=== PATIENT | female | born 1940 | race Caucasian/White ===

== ENCOUNTER 2017-11-01 11:21 | Emergency (ER) | payer MEDICARE, OTHER ==
[~2017-11-01] VITALS: Ht 147.3 cm; Wt 42.6 kg
--- OUTSIDE RECORDS SUMMARY | ~2017-11-01 | XMS | Clinical Summary ---
Demographics + + + | Address | [address] | | | [place] [address] | + + + | Home Phone | | + + + | Preferred Language | Unknown | + + + | Marital Status | | + + + | Judaism Affiliation | Unknown | + + + | Race | Unknown | + + + | Ethnic Group | Unknown | + + + Author + + + | Author | [facility] [employer] | + + + | Organization | [facility] [employer] | + + + | Address | Unknown | + + + | Phone | Unavailable | + + + Support + + + + + | Name | Relationship | Address | Phone | + + + + + | Meg Abreu | ECON | [address] | | | | | [place], | | | | | [place] [address] | | + + + + + Care Team Providers + +------+ + | Care Coating Line Worker Name | Role | Phone | + +------+ + | Da Hurst MD | PP | | + +------+ + Allergies No Known Allergies Current Medications + + +--------+---------+------+------+-------+ | Prescription | Sig. | Disp. | Refills | Star | End | Statu | | | | | | t | Date | s | | | | | | Date | | | + + +--------+---------+------+------+-------+ | rosuvastatin | Take 20 mg by mouth | | | | | Activ | | (CRESTOR) 20 MG | daily. | | | | | e | | tablet | | | | | | | + + +--------+---------+------+------+-------+ | diltiazem | Take 240 mg by mouth | | | | | Activ | | (CARDIZEM) 120 MG | daily. | | | | | e | | tablet | | | | | | | + + +--------+---------+------+------+-------+ | Cholecalciferol | Take 1,000 Units by | | | | | Activ | | (VITAMIN D3) 1000 | mouth daily. | | | | | e | | UNITS capsule | | | | | | | + + +--------+---------+------+------+-------+ | metoprolol | Take 25 mg by mouth | | | | | Activ | | (LOPRESSOR) 25 MG | daily. | | | | | e | | tablet | | | | | | | + + +--------+---------+------+------+-------+ | rivaroxaban | Take 15 mg by mouth | | | | | Activ | | (XARELTO) 15 MG | daily. | | | | | e | | tablet | | | | | | | + + +--------+---------+------+------+-------+ | levothyroxine | Take 125 mcg by | | | 05/ | | Activ | | (SYNTHROID) 150 MCG | mouth daily. | | | 0/20 | | e | | tablet | | | | 13 | | | + + +--------+---------+------+------+-------+ | lisinopril | Take 1 tablet by | 90 | 3 | 04/2 | | Activ | | (ZESTRIL) 5 MG | mouth daily. | tablet | | 10/23 | | e | | tabletIndications: | | | | 17 | | | | Essential | | | | | | | | hypertension | | | | | | | + + +--------+---------+------+------+-------+ Active Problems + + + | Problem | Noted Date | + + + | Proteinuria | 10/20/2011 | + + + | Iron deficiency | 10/20/2011 | + + + | Vitamin D deficiency | 10/20/2011 | + + + | Hypercalcemia | 10/20/2011 | + + + + + | Overview: Now markedly improved. | + + + + + | Acute kidney injury (HCC) | 04/11/2011 | + + + | Anemia | 04/11/2011 | + + + | CKD (chronic kidney disease), stage III | 04/11/2011 | + + + Family History + + +------+ + | Medical History | Relation | Name | Comments | + + +------+ + | Arthritis | Brother | | | + + +------+ + | Hypertension | Mother | | | + + +------+ + + +------+ + + | Relation | Name | Status | Comments | + +------+ + + | Brother | | Other | | + +------+ + + | Father | | Other | | + +------+ + + | Maternal Uncle | | Other | | + +------+ + + | Mother | | | hypertension | + +------+ + + | Paternal Aunt | | Other | | + +------+ + + | Sister | | Other | | + +------+ + + | Son | | | | + +------+ + + Social History + +-------+ +--------+------+ | Tobacco Use | Types | Packs/Day | Years | Date | | | | | Used | | + +-------+ +--------+------+ | Never Smoker | | | | | + +-------+ +--------+------+ + +---+---+---+ | Smokeless Tobacco: | | | | | Never Used | | | | + +---+---+---+ + + +---------+ + | Alcohol Use | Drinks/We | oz/Week | Comments | | | ek | | | + + +---------+ + | No | 1-2 | 0.0 | Wine | | | Glasses | | | | | of wine | | | + + +---------+ + + + + | Sex Assigned at | Date Recorded | | | | + + + | Not on file | | + + + Last Filed Vital Signs + + + + | Vital Sign | Reading | Time Taken | + + + + | Blood Pressure | 116/66 | 10/27/2016 10:07 AM PDT | + + + + | Pulse | 82 | 10/27/2016 10:07 AM PDT | + + + + | Temperature | 35.8 C (96.4 F) | 10/27/2016 10:07 AM PDT | + + + + | Respiratory Rate | 14 | 10/28/2013 10:57 AM PDT | + + + + | Oxygen Saturation | 98% | 10/27/2016 10:07 AM PDT | + + + + | Inhaled Oxygen | - | - | | Concentration | | | + + + + | Weight | 49 kg (108 lb 1.6 | 10/27/2016 10:07 AM PDT | | | oz) | | + + + + | Height | 149.9 cm (4' 11") | 10/27/2016 10:07 AM PDT | + + + + | Body Mass Index | 21.83 | 10/27/2016 10:07 AM PDT | + + + + Plan of Treatment +--------+---------+ + + + | Date | Type | Specialty | Care Team | Description | +--------+---------+ + + + | 11/11/ | Office | | Lemuel Peñaloza, | | | 2018 | Visit | | [address] | | | | | | [address] | | | | | | [place] [address] | | | | | | [phone] | | | | | | | | +--------+---------+ + + + + + + + + | Health Maintenance | Due Date | Last Done | Comments | + + + + + | Vaccine: | | | | | Dtap/Tdap/Td (1 - | 9 | | | | Tdap) | | | | + + + + + | DEXA SCAN SCREENING | | | | | | 5 | | | + + + + + | Vaccine: | | | | | Pneumococcal 65+ | 5 | | | | Low/Medium Risk (1 | | | | | of 2 - PCV13) | | | | + + + + + | Vaccine: Influenza | | | | | (Season Ended) | 8 | | | + + + + + Results Not on filefrom Last 3 Months Insurance + +--------+ +------+-------+ + | Payer | Benefi | Subscriber | Type | Phone | Address | | | t Plan | ID | | | | | | / | | | | | | | Group | | | | | + +--------+ +------+-------+ + | MEDICARE | MEDICA | xxxxxxxxxx | | | [address] | | | RE | | | | [place] [address] | | | IP-OP | | | | | + +--------+ +------+-------+ + | [employer] PLAN | ODS - | xxxxxxxxx | | | | | | GENERI | | | | | | | C | | | | | + +--------+ +------+-------+ + + +--------+ +--------+ + + | Guarantor Name | Accoun | Relation to | Date | Phone | Billing Address | | | t Type | Patient | of | | | | | | | | | | + +--------+ +--------+ + + | JOSE CARLOS ABREU | Person | Self [birth year] Home: | [address] | | | al/Fam | | 1940 | [phone] [place] | | | [place] | | | [phone] | [phone] | + +--------+ +--------+ + +
--- OUTSIDE RECORDS SUMMARY | ~2017-11-01 | XMS | Clinical Summary ---
Demographics + + + | Address | [address] | | | [place] [address] | + + + | Home Phone | | + + + | Preferred Language | Unknown | + + + | Marital Status | | + + + | Jehovah'S Witness Affiliation | NON | + + + | Race | White | + + + | Ethnic Group | Not or | + + + Author + + + | Author | [facility] | + + + | Organization | [facility] | + + + | Address | Unknown | + + + | Phone | Unavailable | + + + Support + + + + + | Name | Relationship | Address | Phone | + + + + + | SHANTELLE ABREU | ECON | [address] | | | | | [place] | | | | | [address] | | + + + + + Care Team Providers + +------+ + | Care Family Preservation Caseworker Name | Role | Phone | + +------+ + | Da Hurst MD | PP | Unavailable | + +------+ + Source Comments HIEU is fully live on both [facility] and [facility] InPatient.Counts Include [facility] & [facility] Allergies No Known Allergies Current Medications + + +-------+---------+------+------+-------+ | Prescription | Sig. | Disp. | Refills | Star | End | Statu | | | | | | t | Date | s | | | | | | Date | | | + + +-------+---------+------+------+-------+ | Propranolol HCl 40 | None Entered | | | | | Activ | | mg Oral TABS | | | | | | e | + + +-------+---------+------+------+-------+ | Atorvastatin | None Entered | | | | | Activ | | Calcium (LIPITOR) 20 | | | | | | e | | mg Oral TABS | | | | | | | + + +-------+---------+------+------+-------+ | | None Entered | | | | | Activ | | [id number] | | | | | | e | | LICYL-CAFF OR | | | | | | | + + +-------+---------+------+------+-------+ | | None Entered | | | | | Activ | | Triamterene-Hydrochl | | | | | | e | | orothiazid (MAXZIDE) | | | | | | | | 75-50 mg Oral TABS | | | | | | | + + +-------+---------+------+------+-------+ Active Problems Not on file Social History + + + +--------+------+ | Tobacco Use | Types | Packs/Day | Years | Date | | | | | Used | | + + + +--------+------+ | Current Every Day | Cigarettes | 0.5 | 50 | | | Smoker | | | | | + + + +--------+------+ + + +---------+ + | Alcohol Use | Drinks/We | oz/Week | Comments | | | ek | | | + + +---------+ + | Yes | | | 1 a month | + + +---------+ + + + + | Sex Assigned at | Date Recorded | | | | + + + | Not on file | | + + + Last Filed Vital Signs + + + + | Vital Sign | Reading | Time Taken | + + + + | Blood Pressure | - | - | + + + + | Pulse | - | - | + + + + | Temperature | - | - | + + + + | Respiratory Rate | - | - | + + + + | Oxygen Saturation | - | - | + + + + | Inhaled Oxygen | - | - | | Concentration | | | + + + + | Weight | 55.8 kg (123 lb) | 12/22/2006 3:00 PM PDT | + + + + | Height | 149.9 cm (4' 11") | 12/22/2006 3:00 PM PDT | + + + + | Body Mass Index | 24.84 | 12/22/2006 3:00 PM PDT | + + + + Plan of Treatment + + + + + | Health Maintenance | Due Date | Last Done | Comments | + + + + + | INFLUENZA VACCINE | | | | | (FLU SHOT) | 8 | | | + + + + + Results Not on filefrom Last 3 Months
--- OUTSIDE RECORDS SUMMARY | ~2017-11-01 | XMS | Clinical Summary ---
Demographics + + + | Address | [address] | | | [place] [address] | + + + | Home Phone | | + + + | Preferred Language | Unknown | + + + | Marital Status | | + + + | Hindu Affiliation | 1077 | + + + | Race | Unknown | + + + | Ethnic Group | Unknown | + + + Author + + + | Author | [facility] | | | and [facility] | + + + | Organization | [facility] | | | and [facility] | + + + | Address | Unknown | + + + | Phone | Unavailable | + + + Support + + + + + | Name | Relationship | Address | Phone | + + + + + | None,To List | ECON | 11/05/11 | | | | | NA, | | + + + + + | Meg Chavez | ECON | [address] | | | | | [place] | | | | | [address] | | + + + + + Care Team Providers + +------+ + | Care Process Development Chemist Name | Role | Phone | + +------+ + PP | Unavailable | + +------+ + Allergies Not on File Current Medications Not on file Active Problems Not on file Social History + +-------+ +--------+------+ | Tobacco Use | Types | Packs/Day | Years | Date | | | | | Used | | + +-------+ +--------+------+ | Never Assessed | | | | | + +-------+ +--------+------+ + + + | Sex Assigned at | Date Recorded | | | | + + + | Not on file | | + + + Plan of Treatment + [...] + Results Not on filefrom Last 3 Months"
--- OUTSIDE RECORDS SUMMARY | ~2017-11-01 | XMS | Clinical Summary ---
Demographics + + + | Address | [address] | | | [place] [address] | + + + | Home Phone | | + + + | Preferred Language | Unknown | + + + | Marital Status | | + + + | Mormon Affiliation | Unknown | + + + | Race | Unknown | + + + | Ethnic Group | Unknown | + + + Author + + + | Author | [facility] | + + + | Organization | [facility] | + + + | Address | Unknown | + + + | Phone | Unavailable | + + + Support + + + + + | Name | Relationship | Address | Phone | + + + + + | Meg Abreu | ECON | [address] | | | | | [place], | | | | | [place] [address] | | + + + + + Care Team Providers + +------+ + | Care Gold Cutter Name | Role | Phone | + [...] [address] | | | | | | [place] [address] | | | | | | [phone] | | | | | | | [...] | xxxxxxxxxx | | | [address] | | | RE | | | | [place] [address] | | | IP-OP | | | [...] | [place] | | | [address] | [phone] | + +--------+ +--------+ + +
--- OUTSIDE RECORDS SUMMARY | ~2017-11-01 | XMS | Clinical Summary ---
Demographics + + + | Address | [address] | | | [place] [address] | + + + | Home Phone | | + + + | Preferred Language | Unknown | + + + | Marital Status | | + + + | Druze Affiliation | NON | + + + [...] [place] | | | | | [address] | | + + + + + Care Team Providers + +------+ + | Care Finishing Trimmer Name | Role | Phone | + +------+ + | Da Hurst MD | PP | Unavailable | + +------+ + Source Comments HIEU is fully live on both [facility] and [facility] InPatient.[facility] Allergies No Known Allergies Current [...] | | | | Activ | | [id number] | | | | | | e [...]
--- OUTSIDE RECORDS SUMMARY | ~2017-11-01 | XMS | Clinical Summary ---
Demographics + + + | Address | [address] | | | [place] [address] | + + + | Home Phone | | + + + | Preferred Language | Unknown | + + + | Marital Status | | + + + | Quaker Affiliation | 1077 | + + + | Race | Unknown | + + + | Ethnic Group | Unknown | + + + Author + + + | Author | [facility] | | | and [facility] | + + + | Organization | [facility] | | | and Juan Joseana [...] [place] | | | | | [address] | | + + + + + Care Team Providers + +------+ + | Care Cardiac Rn Name | Role | Phone | + [...]
[~2017-11-01 11:21] MED LIST: ADULT LOW DOSE81 MG PO; CRESTOR20 MG PO; DILTIAZEM 24HR120 M1 PO; DULCOLAX5 MG PO; IRON325 M1 PO; LISINOPRIL5 MG PO; METOPROLOL SUCC25 MG PO; PERCOCET 7.5-31 EACH PO; PROPRANOLOL HCL20 MG PO; SYNTHROID50 MCG PO; VITAMIN D1000 UNI1 PO; XARELTO15 MG PO
[2017-11-01] MEDS ORDERED: NORCO 5-325 TA1 EACH PO (16:01)
--- NOTE | 2017-11-01 22:00 | EKG ---
[facility] [address] [place], [place] [address] Signed Atrial fibrillation with rapid ventricular response Nonspecific T wave abnormality Abnormal ECG No previous ECGs available Confirmed by LEONOR PORTILLO MD ([id number]) on 11/01/2017 10:00:10 PM Electronically Signed By: LEONOR PORTILLO MD 11/01/172199 PATIENT NAME: JOSE CARLOS ABREU Electrocardiogram DATE OF : 40 PHYSICIAN: LEONOR PORTILLO MD REPORT #: [id number] REPORT IS CONFIDENTIAL AND NOT TO BE RELEASED WITHOUT AUTHORIZATION
== END 2017-11-01 16:45 | disposition home or self-care (01) ==
LOC: ED 11:21
DX: M25.551 Pain in right hip (principal); I48.91 Unspecified atrial fibrillation; I48.92 Unspecified atrial flutter; I10 Essential (primary) hypertension; Z87.891 Personal history of nicotine dependence; Z79.899 Other long term (current) drug therapy
CPT/HCPCS: 73502; 76882; 80053; 85025; 85651; 93005; 93010; 96374; 99284

== ENCOUNTER 2017-12-22 11:34 | Inpatient (IN) | payer MEDICARE, OTHER ==
[~2017-12-22] VITALS: Ht 147.3 cm; Wt 45.9 kg
[~2017-12-22 11:34] MED LIST changes: +NORCO 5-325 TA1 EACH PO
--- NOTE | 2017-12-22 16:05 | NUR ---
77 YEAR OLD FEMALE PATIENT ADMITTED TO CCU VIA STRETCHER UNDER DR. PORTILLO WITH DX OF AFIB/RVR. PATIENT IS AWAKE AND ALERT UPON ADMISSION. STATES SHE HX OF AFIB FOR APPROX 5 YEARS. BEGAN HAVEING VOMITING THE PAST 2 DAYS, TODAY DEVELOPED DIARRHEA THIS MORNING. IS ON AMIODARONE GTT AT 1 MG/HR, EQUALS 33.3 ML/HR. DENEIS S/S OF AFIB/RVR.
--- NOTE | 2017-12-22 16:10 | NUR ---
ADMISSION PROCESS STARTED. IS ABLE TO ANSWERE QUESTIONS. C/O SLIGHT NAUSEA.
[2017-12-22] MEDS ORDERED: NORCO 5-325 TA1 EACH PO (17:58)
--- NOTE | 2017-12-22 18:15 | NUR ---
NAUSEATED. HAVING DRY HEAVES. ZOFRAN 4 MG IV GIVEN.
--- NOTE | 2017-12-22 20:00 | NUR ---
REPORT RC'D FROM DAY SHIFT NURSE. PT RESTING COMFORTABLY IN BED, DENIES NAUSEA, DENIES PAIN, NO OTHER COMPLAINTS AT THIS TIME. PT DISORIENTED TO DATE, REORIENTED. AMIODARONE GTT CURRENTLY RUNNING AT 0.5 MG/MIN AND D5LR RUNNING 75 ML/HR, LEFT IV SITE WNL AND PATENT, EDUCATION PROVIDED ON S/SX TO MONITOR FOR AND REPORT, PT VERBALIZED UNDERSTANDING AND AGREEBALE. ASSESSMENT CHARTED AND VITAL SIGNS OBTAINED. CALL LIGHT WITHIN REACH. WILL CONTINUE MONITOR.
--- NOTE | 2017-12-22 21:00 | EKG ---
[facility] [address] [facility] [facility] [place] [address] Signed Atrial fibrillation with rapid ventricular response Nonspecific T wave abnormality Abnormal ECG When compared with ECG of 01-NOV-2017 12:56, No significant change was found Confirmed by LEONOR PORTILLO MD ([id number]) on 12/22/2017 9:00:22 PM Electronically Signed By: LEONOR PORTILLO MD 12/22/17 2100 PATIENT NAME: JOSE CARLOS ABREU Electrocardiogram DATE OF : 40 PHYSICIAN: LEONOR PORTILLO MD REPORT #: [id number] REPORT IS CONFIDENTIAL AND NOT TO BE RELEASED WITHOUT AUTHORIZATION
--- NOTE | 2017-12-22 23:23 | NUR ---
PT RESTING COMFORTABLY IN BED WITH EYES CLOSED, NO ACUTE DISTRESS NOTED. LR RUNNING AT 500 ML/HR AND AMIODARONE RUNNING AT 0.5 MG/MIN. PT'S URINE OUTPUT NOTED TO BE DECREASED SINCE ARRIVAL, DR. PORTILLO AWARE. WILL CONTINUE TO MONITOR.
--- NOTE | 2017-12-23 00:30 | NUR ---
P/C UPDATE TO DR. PORTILLO REGARDING PT'S STATUS. INFORMED PROVIDER THAT PT'S HR HAS REMAIN ELEVATED ABOVE 110, AND URINE OUTPUT HAS BEEN DECREASED WITH SINGLE OUTPUT OF 100 MLS IN THAT LAST FOUR HOURS. PER DR. PORTILLO, INCREASE D5LR TO 125 ML/HR, GIVE FIRST DOSE LOPRESSOR 2.5 MG IV, GIVE SECOND DOSE LOPRESSOR IF NO HYPOTENSION AND IF HR REMAINS ABOVE 60, IF PT TOELRATES LOPRESSOR GIVE SCHEDULED 5 MG DOSE EVERY 6 HOURS. ORDERS READ BACK TO PROVIDER AND VERIFIED. D5LR INCREASED FROM 100 ML/HR TO 125 ML/HR AT THIS TIME.
--- NOTE | 2017-12-23 02:22 | NUR ---
PT RESTING COMFORTABLY IN BED WITH EYES CLOSED, NO ACUTE DISTRESS NOTED. LAST BP 105/72, MAP 81, AND HR 94. ADDITIONAL DOSE OF 2.5 MG LOPRESSOR HELD AT THIS DUE TO HYPOTENSIVE TREND, WILL CONTINUE TO MONITOR, ADDITIONAL DOSE TO BE REASSESSED IF INCREASED BP TREND CONTINUES. D5LR RUNNING AT 125 ML/HR AND AMIODARONE RUNNING AT 0.5 MG/MIN, IV SITE WNL. WILL CONTINUE TO MONITOR
--- NOTE | 2017-12-23 04:00 | NUR ---
PT RESTING COMFORTABLY IN BED WITH EYES CLOSED. AMIODARONE CONTINUES AT 0.5 MG/MIN AND LR AT 125 ML/HR, IV SITE WNL. LAST BP 96/70 AND HR 99.
--- NOTE | 2017-12-23 06:00 | NUR ---
PT USED CALL LIGHT APPROPRIATELY, REQUESTING BED SOTO, ASSISTED ONTO BED SOTO. PT VOIDED 150 ML OF STRONG SMELLING URINE WITH TRACE STOOL AND WHAT APPEARS TO BE SMALL WHTE BALLS. PT C/O NAUSEA, 4 MG ZOFRAN GIVEN. 5 MG METOPROLOL GIVEN. AMIODARONE RUNNING AT 0.5 MG/MIN AND LR RUNNING AT 125 ML/HR, IV SITE WNL.
--- NOTE | 2017-12-23 07:25 | NUR ---
LR TITRATED DOWN TO 65 ML/HR PER DR. PORTILLO. PT STATES SHE HAS A DECREASE IN NAUSEA AND WOULD LIKE TO HAVE A LIGHT BREAKFAST. MENU PROVIDED AT THIS TIME.
--- NOTE | 2017-12-23 08:20 | NUR ---
IV SITE INTACT, NO REDNESS OR SWELLING NOTED, PT DENIES PAIN AT SITE, FLUIDS INFUSING EASILY. PT DENIES PAIN AND SOB AT THIS TIME. PT ALERT AND ORIENTED. READY TO ORDER BREAKFAST. PT REPORTS SOME MILD NAUSEA AT THIS TIME. PT REFUSES ORAL CARE OR A WARM WASH CLOTH AT THIS TIME. PT ABLE TO SWALLOW PILLS EASILY.
--- NOTE | 2017-12-23 10:15 | NUR ---
PT UP TO BEDSIDE COMMODED, ABLE TO HAVE A SMALL BM AND VOIDED APPROXIMATLY 150 ML URINE. PT THEN BACK TO BED. PT ABLE TO MOVE EASILY WITH ONE PERSON ASSIST.
--- NOTE | 2017-12-23 12:04 | NUR ---
IV SITE INTACT, NO REDNESS OR SWELLING NOTED, PT DENIES PAIN AT THE SITE, FLUIDS INFUSING EASILY. PT DENIES PAIN AND SOB, PT C/O NAUSEA, 4 MG IV ZOFRAN GIVEN. PT ALERT AND ORIENTED X4. PT VITALS WNL AT THIS TIME. PT SITTING UP IN BED WATCHING TV.
--- NOTE | 2017-12-23 12:28 | NUR ---
PT STATES SHE IS FEELING WARM AND FLUSHED, COOL WASH CLOTH GIVEN AND ASSISTED TO TAKE PT SOCKS OFF. PT ALSO ORDERED LUNCH AT THIS TIME.
--- NOTE | 2017-12-23 12:31 | NUR ---
PT RESTING IN BED-ALERT AND ORIENTED. PT PLESANT, SAID SHE HAS DEALT WITH THIS FOR YEARS. PT REQUESTED PRAYER, WILL FOLLOW NEEDED
--- NOTE | 2017-12-23 13:12 | NUR ---
TELE NUMBER 3 APPLIED. WILL BE TRANSFERRED TO MEDICAL FLOOR TO THIS AFTERNOON.
--- NOTE | 2017-12-23 16:25 | NUR ---
IV SITE INTACT, NO REDNESS OR SWELLING NOTED, PT DENIES PAIN AT SITE. PT DENIES PAIN, NAUSEA, AND SOB. PT HR STILL IRREGULAR 90'S-120'S. ALL OTHER VITALS WNL. PT SLIGHTLY FORGETFUL SHE ORDERED DINNER TWICE. PT IS COOPERATIVE AND POLITE IS ORIENTED TO PLACE, SELF, AND EVENT.
--- NOTE | 2017-12-23 16:39 | NUR ---
pt informed this RN that she needs to be discharged home tomorrow as her [id number] just . pt states "I just need to be home with my right now".
--- NOTE | 2017-12-23 19:45 | NUR ---
PT SHIFT REPORT RECEIVED FROM DAY SHIFT RN. PT RESTING IN BED. PT DENIES ANY QUESTIONS AT THIS TIME. WILL CONTINUE TO CLOSELY MONITOR.
--- NOTE | 2017-12-23 20:45 | NUR ---
MD SPOKE WITH PT REGUARDING ECHO RESULTS AND PLAN OF CARE. MD STARTED PT ON COREG THIS EVENING. PT HR CONTINUES AT 110-135'S. PT ASSESSMENT COMPLETED. PT LUNGS ARE CLEAR AND PT IS ON RA. SPO2 95-98%. RR EVEN AND UNLABORED. PT DENIES ANY SOB, CP, AND DIZZINESS. BOWEL TONES HYPOACTIVE. TRACE EDEMA IN BILATERAL ANKLES. CALL LIGHT IN REACH. PT DENIES ANY FURTHER NEEDS AT THIS TIME. WILL CONTINUE TO CLOSEY MONITOR AT THIS TIME.
--- NOTE | 2017-12-23 21:30 | NUR ---
PT CALLED ASKING IF SHE COULD HAVE SOMETHING TO HELP HER SLEEP. UPDATED MD. PT RESTING IN BED AT THIS TIME. PT DENIES ANY OTHER NEEDS AT THIS TIME. WILL CONTINUE TO CLOSELY MONITOR.
--- NOTE | 2017-12-23 22:10 | NUR ---
PT CALLED. ENTERED ROOM AND FOUND PT IS RESPIRATORY DISTRESS. PT TACHYPNIC, DIAPHORETIC, SPO2 87%, PT STATES "I CANT BREATH, I CANT BREATH". EDUCATED PT TO TAKE SLOW DEEP BREATHS. PLACED ON OXYMASK TITRATED UP TO 15L. MD AND RT ALREADY ON FLOOR. CALLED IMMEDIATELY FOR THEIR HELP AND EVALUATION.
--- NOTE | 2017-12-23 22:40 | NUR ---
GAVE STAT MEDICATIONS ORDERED VERABALLY BY MD CAPPS AT BEDSIDE. GAVE 20MG LASIX X2, 1MG MORPHINE X2, METOPROLOL 5MG IV X1. PLACED PT ON BIPAP OF 14/10 AND 50% FIO2 RT AT BEDSIDE TO MANAGE. PT TOLERATING MEDICATIONS AND BIPAP WELL. PLACED SZYMANSKI PER MD. DISCONTINUED FLUIDS PER MD. STAT X-RAY COMPLETED. PT RESPONDING WELL TO MEDICATIONS AND STATES "I FEEL LIKE I AM BREATHING BETTER". MD REMAINS ON FLOOR AND IN TO SEE PT MULTIPLE TIMES. PT IS MORE STABLE AT THIS TIME. WILL CONTINUE TO CLOSELY MONITOR.
--- NOTE | 2017-12-24 | NUR ---
RT IN TO TITRATE FIO2 TO 40%. PT SPO2 98%. PT RR 18. WILL CONTINUE TO CLOSELY MONITOR.
--- NOTE | 2017-12-24 01:57 | NUR ---
REPORT RECEIVED FROM ZEINAB ALVES. PT CURRENTLY AWAKE, RESTING IN BED WEARING BIPAP. R.T. IN TO DECREASE FIO2 FROM 40% TO 30%. LUNGS SOUND COARSE WITH CRACKLES THROUGHOUT. PT DENIES NEEDS AT THIS TIME, WILL CONTINUE TO MONITOR.
--- NOTE | 2017-12-24 02:00 | NUR ---
RT IN TO TITRATE FI02 TO 30%. PT SPO2 98-100%. WILL CONTINUE TO CLOSELYM ONITOR. PT STATES SHE FEELS MUCH BETTER. PT DENIES CP OR DIZINESS THROUGHOUT THIS PERIOD OF TIME. WILL CONTINUE TO CLOSELY MONITOR. PT DENIES ANY OTHER NEEDS AT THIS TIME. CALL LIGHT IN HAND.
--- NOTE | 2017-12-24 02:24 | NUR ---
REPORT GIVEN TO MACKENZIE ARRIOLA. MACKENZIE ARRIOLA WILL BE TAKING OVER CARE OF THIS PATIENT AT THIS TIME. UPDATED RN OF CURRENT SITUATION. PT IS AWARE OF PLAN OF CARE AND IS AGREEABLE TO THIS TREATMENT. PT STATES "I FEEL MUCH BETTER NOW, THAT MORPHINE REALLY HELPED". PT REMAINS ON BIPAP AT THIS TIME AND IS TOLERATING IT WELL. PT HAS CALL LIGHT AND CALLS APPROIPRIATELY.
--- NOTE | 2017-12-24 02:37 | NUR ---
12/23/2017 AT 2210. CALLED TO THE ROOM TO ASSESS THE PATIENT. SHE WAS IN FLASH PULMONARY EDEMA PER DR. CAPPS. ZEINAB ALVES AND I WERE IN THE ROOM ASSESSING THE PATIENT. DR. CAPPS TO FOLLOW. PT HEART RATE WAS IN THE 140'S, RR IN THE 40'S. PT C/O "I CAN'T BREATHE." TRIED TO ORALLY SUCTION HER WITHOUT SUCCESS. DR. CAPPS ORDERED MEDS THAT JOSELYN WAS GIVING. I SUGGESTED BIPAP TO HELP THE PT'S RESPIRATORY DISTRESS. GAVE THE OK. PLACED PT ON BIPAP AT 14/10, 50% FIO2. PLACED COLD RAGS TO HELP COOL HER DOWN AND CALM HER DOWN. ASKED DOC IF SHE WANTED AN EKG, DID NOT THINK PT WAS IN NEED OF AN EKG AT THIS TIME SHE "CAME IN IN A-FIB WITH RVR." PT'S BREATHING WAS MUCH IMPROVED AND SHE WAS ABLE TO BREATHE "MUCH BETTER." PT WAS CALMER AND RESTING IN NO RESP DISTRESS.
--- NOTE | 2017-12-24 03:00 | NUR ---
PT CURRENTLY SLEEPING WITH BIPAP IN PLACE AT 30%. HR:127, SPO2:99%. NO APPARENT DISTRESS, RESPIRATIONS EVEN AND UNLABORED. WILL ALLOW FOR REST AND CONTINUE TO MONITOR.
--- NOTE | 2017-12-24 04:59 | NUR ---
DR. CAPPS NOTIFIED THAT PT'S HEART RATE HAS BEEN TRENDING UP AND IS CURRENTLY 120-140'S. ORDER RECEIVED FOR ONE TIME DOSE OF 5MG IV METOPROLOL. PT AWAKE, STATES HER MOUTH IS DRY. REMOVED BIPAP AT THIS TIME, PT REQUESTS TO LEAVE IT OFF. 2L O2 VIA NC PLACED ON PT. PT DENIES SOB AND CHEST PAIN. LUNGS SOUND MARKEDLY IMPROVED FROM EARLIER, MOSTLY CLEAR, SLIGHTLY COARSE IN THE RIGHT UPPER LOBE. HR IRREGULAR. BOWEL TONES ACTIVE, DENIES NAUSEA. NO EDEMA NOTED IN BLE. IV PATENT, SL. SZYMANSKI PATENT, URINE DILUTE AND QUANTITY SUFFICIENT. PT DENIES REQUESTS AT THIS TIME, CALL LIGHT IS WITHIN REACH, PT CURRENTLY WATCHING TV. WILL CONTINUE TO MONITOR.
--- NOTE | 2017-12-24 08:09 | NUR ---
APPLIED NEW PULSE OX PROBE ON LEFT BIG TOE FOR BETTER READING, PER RN. VITALS AND TEMP CHARTED. PATIENT UP IN BED, EATING BREAKFAST
--- NOTE | 2017-12-24 09:25 | NUR ---
PT IS DOING BETTER THIS AM. AT TIMES APPEARS TO BE CONFUSED OR FORGETFUL ABOUT THINGS WHEN TALKING WITH HER.
--- NOTE | 2017-12-24 10:31 | NUR ---
PT APPEARS TO BE SLEEPING JUST AWAKEN DUE TO HER PHONE RANG. REMAINS ON O2 AT 2L'S.
--- NOTE | 2017-12-24 11:16 | NUR ---
PT UP TO THE CHAIR AT THIS TIME. AM CARE COMPLETED CPMPLETE BEDBATH, LINE CHANGE. PT ABLE TO AMBULATE WELL HEART RATE INCREASED TO THE 120'S AND REMAINS IRREGULAR AT THIS TIME. PT REMAINS IN A-FIB AT THIS TIME. CALL LIGHT WITHIN REACH. SZYMANSKI DRAINING YELLOW IN COLOR URINE.
--- NOTE | 2017-12-24 11:22 | NUR ---
ASSISTED ZEINAB SALINAS IN STANDBY ASSIST PATIENT TO CHAIR. BED BATH GIVEN AND LINENS CHANGED. TOOTHBRUSH AND COMB GIVEN TO PATIENT.
--- NOTE | 2017-12-24 12:00 | NUR ---
PT REMAINS UP IN THE CHAIR EATING LUNCH AT THIS TIME.
--- NOTE | 2017-12-24 12:30 | NUR ---
5MG IVP LOPRESSOR GIVEN AT THIS TIME FOR INCREASED HEART RATE. PT HR RESPONED WELL TO THIS.
--- NOTE | 2017-12-24 13:30 | NUR ---
PT BACK TO BED AT THIS TIME, MINUAL ASSISTANCED NEEDED AT THIS TIME. HEART RATE REMAINS INTO THE 100' TO 1-TEENS AT TIMES.
--- NOTE | 2017-12-24 14:03 | NUR ---
DR CAPPS NOTIFIED OF I & O'S AT THIS TIME. SHE WILL REVEIW.
--- NOTE | 2017-12-24 15:02 | NUR ---
PT REMAINS ASLEEP AT THIS TIME.
--- NOTE | 2017-12-24 15:48 | NUR ---
NEW ORDERS RECEIVED AT THIS TIME, LASIX 20MG IVP GIVEN AT THIS TIME. PT TALKING ON THE PHONE AT THIS TIME.
--- NOTE | 2017-12-24 17:35 | NUR ---
pt remains in bed urine output increased after the lasix IVP. Dinner order for pt also at this time. No c/o's at this time.
--- NOTE | 2017-12-24 18:27 | NUR ---
PT ASKED IF SHE WAS GOING TO BE DISCHARGED TO HOME TOMORROW? EXPLAINED THAT I DID NOT THINK SO, THEN SHE STATES "I NEED TO TALK WITH THE DOCTOR AND I NEED TO GO HOME TOMORROW". PT HEART RATE INCREASES WHEN SHE TALKS ABOUT DISCHARGE, OTHER MAYER SHE HAS BEEN IN THE 100'S. PT IS AWAKE EATING HER FRUIT AT THIS TIME. THIS IS ALL SHE WANTED FOR DINNER. SHE IS HAVING GOOD URINE OUTPUT FROM THE LASIX THAT WAS GIVEN AT 15:45.
--- NOTE | 2017-12-24 18:30 | NUR ---
PT ATE A FRUIT CUP FOR DINNER TONIGHT "HONEY I AM JUST NOT HUNGRY".
--- NOTE | 2017-12-24 19:22 | NUR ---
SHIFT REPORT RECEIVED FROM ZEINAB SALINAS. PT IS CURRENTLY SLEEPING, NO APPARENT DISTRESS. RESPIRATIONS ARE EVEN AND UNLABORED, RR:17, SPO2:100% ON 2L O2. HR:117. IV SALINE LOCKED. STEPHON PATENT. WILL CONTINUE TO MONITOR.
--- NOTE | 2017-12-24 20:23 | NUR ---
ASSESSMENT COMPLETED. PT IS ALERT/ORIENTED, DENIES PAIN, SOB, CHEST PAIN, AND NAUSEA. LUNGS CLEAR, SLIGHTLY DIM IN BASES, 2L O2 VIA NC IN PLACE. HR IRREGULAR AND TACHY 120-130'S, PO COREG AND AMIODARONE GIVEN. BOWEL TONES ACTIVE, ABDOMEN SOFT AND NONTENDER. SKIN INTACT, NO EDEMA NOTED. IV PATENT, SL. SZYMANSKI PATENT, DRAINING DILUTE URINE, UO QS. PT STATES HER IS IN THE E.R. FOR BLOOD SUGAR PROBLEMS. STATES "I'LL REST EASIER KNOWING HE'S BEING TAKEN CARE OF HERE." PT CURRENTLY WATCHING TV, CALL LIGHT WITHIN REACH. NO REQUESTS AT THIS TIME, WILL CONTINUE TO MONITOR.
--- NOTE | 2017-12-24 22:24 | NUR ---
SZYMANSKI D/C'D AFTER REMOVING 9ML NS FROM BALLOON. PT TOLERATED WELL. PT UP TO BSC WITH SBA, STEADY ON FEET. PT FELT URGE TO VOID, WAS ABLE TO PRODUCE A SCANT AMOUNT THEN RETURNED TO BED. DENIES NEEDS AT THIS TIME. WILL CONTINUE TO MONITOR.
--- NOTE | 2017-12-25 00:06 | NUR ---
PT SLEEPING, WOKE EASILY WHEN I ENTERED ROOM. ASSESSMENT COMPLETED, NO CHANGES FROM PREVIOUS ASSESSMENT. PT DENIES NEEDS AT THIS TIME, CALL LIGHT IS WITHIN REACH. WILL CONTINUE TO MONITOR.
--- NOTE | 2017-12-25 02:04 | NUR ---
PT SLEEPING, NO APPARENT DISTRESS. RESPIRATIONS EVEN AND UNLABORED, RR:20, SPO2: 97% ON 2L NC. HR 110-130'S. WILL ALLOW FOR REST AND CONTINUE TO MONITOR.
--- NOTE | 2017-12-25 04:05 | NUR ---
ASSESSMENT COMPLETED. NO CHANGES FROM PREVIOUS ASSESSMENT. PT DENIES NEEDS, HAS CALL LIGHT WITHIN REACH. WILL CONTINUE TO MONITOR.
--- NOTE | 2017-12-25 06:29 | NUR ---
CALLED AND SPOKE TO DR. CAPPS TO DISCUSS PT'S HR. NOW THAT PT IS AWAKE HR IS STAYING IN THE 120'S-130'S AND OCCASIONALLY REACHING THE 150'S. OK PER DR. CAPPS TO GIVE PO AMIODARONE AND COREG EARLY AT THIS TIME. STANDING WEIGHT THIS MORNING IS 101.1 POUNDS. FRESH ICE WATER PROVIDED, PT DENIES FURTHER REQUESTS.
--- NOTE | 2017-12-25 06:54 | NUR ---
PT UP TO BSC, VOIDED AND HAD LARGE, FORMED BM. RETURNED TO BED. CALL LIGHT WITHIN REACH.
--- NOTE | 2017-12-25 07:39 | NUR ---
PT ASKING WHEN THE DOCTOR WILL BE IN "I WANT TO GO HOME MY HEART DOES WHAT IT DOES AND I TAKE MEDICATIONS AT HOME FOR IT" "I MISS MY DOG AND WE HAVE THINGS TO DO WITH MY [id number]-DYING" BKF ORDER FOR HER ALSO AT THIS TIME.
[2017-12-25] MEDS ORDERED: PACERONE200 MG PO (08:13)
[2017-12-25] MEDS ORDERED: COREG6.25 MG PO (08:13)
--- NOTE | 2017-12-25 08:41 | NUR ---
DR CAPPS INTO TALK WITH PT AND ABOUT PLAN OF CARE AND DISCHARGE TO HOME. ALL QUESTIONS ANSWERED AT THIS TIME. PT CONTIOUES TO EAT BKF AT THIS TIME.
--- NOTE | 2017-12-25 09:52 | NUR ---
PT DISCHARGE TO HOME, PRINTED AND VERBAL INFORMATION ON MEDICATIONS, DISEASE PROCESS AND DIRECTIONS TO THE DIFFERENT DOCTORS OFFICES GIVEN. PT IS VERY SHORT WITH STAFF ON INFORMATION AND DIRECTIONS. PT IS SWEET, BUT UNSURE IF SHE TRULY UNDERSTANDS HER MEDICAL ISSUES.
== END 2017-12-25 09:50 | disposition home or self-care (01) | DRG 308 ==
LOC: ED 11:34 → CCU 15:01
PROVIDERS: ADMIT Internal Medicine
DX: I48.2 Chronic atrial fibrillation (principal); J81.0 Acute pulmonary edema; E86.0 Dehydration; I42.9 Cardiomyopathy, unspecified; K52.9 Noninfective gastroenteritis and colitis, unspecified; E83.42 Hypomagnesemia; I10 Essential (primary) hypertension; E03.9 Hypothyroidism, unspecified; I08.1 Rheumatic disorders of both mitral and tricuspid valves; E78.5 Hyperlipidemia, unspecified; I25.10 Atherosclerotic heart disease of native coronary artery without angina pectoris; I27.20 Pulmonary hypertension, unspecified; Z79.01 Long term (current) use of anticoagulants; Z95.1 Presence of aortocoronary bypass graft; Z79.891 Long term (current) use of opiate analgesic; Z79.899 Other long term (current) drug therapy; Z85.038 Personal history of other malignant neoplasm of large intestine; Z85.21 Personal history of malignant neoplasm of larynx; Z92.3 Personal history of irradiation
CPT/HCPCS: 36415; 51702; 71045; 80048; 80053; 81001; 83735; 84484; 85025; 85610; 85730; 93005; 93010; 93306; 94660; J0282; J2270; J2405; J3475; J7040; J7120

== ENCOUNTER 2018-09-04 13:03 | Inpatient (IN) | payer MEDICARE, OTHER ==
[~2018-09-04] VITALS: Ht 147.3 cm; Wt 44.9 kg
[~2018-09-04 13:03] MED LIST changes: +COREG6.25 MG PO; +FLUOXETINE HCL40 MG PO; +FUROSEMIDE20 MG PO; +LEVOTHYROXINE100 MCG PO; +PACERONE200 MG PO; +POTASSIUM CHLO10 MEQ PO; +SUPER B COMPLE1 EACH PO; +ULTRAM50 MG PO; +VITAMIN D-32000 UNIT PO; -XARELTO15 MG PO; +XARELTO20 MG PO
--- OUTSIDE RECORDS SUMMARY | 2018-09-04 13:06 | XMS ---
PreManage Notification: JOSE CARLOS ABREU [employer] Events No recent Security Events currently on file CRITERIA MET - [facility] - Has Care Guidelines - PDMP CARE PROVIDERS [facility] PHONE: [phone] Viri has no Care Guidelines for this patient. Care History Medical/Surgical 11/02/2017 [facility] - [facility] contacted patient about becoming established with [facility] as a PCP. - Patient stated she [place] got [place] from [place] and will be starting the new patient packet for the clinic sometime this week and will follow up with [facility] if any future problems should arise with the new PCP process. Care Recommendation: Patient requires education on the scope and purpose of the ED as an acute care provider not a Primary Care Provider and should not be utilized for chronic conditions. If patient returns to ED please contact Community Health WorkerAmanda at [phone]. These are guidelines and the provider should exercise clinical judgment when providing care. E.D. VISIT COUNT (12 MO.) 1 [facility] 3 [facility] TOTAL 4 NOTE: Visits indicate total known visits. ED/UCC VISIT TRACKING (12 MO.) 09/04/2018 13:04 [facility] [place] TYPE: Emergency COMPLAINT: - NAUSEA/PAIN 04/24/2018 13:35 [facility] [place] TYPE: Emergency COMPLAINT: - FALL 12/22/2017 11:34 [facility] [place] TYPE: Emergency COMPLAINT: - VOMITING,DIARRHEA 11/01/2017 11:23 [facility] [place] TYPE: Emergency COMPLAINT: - RT HIP PAIN/ UNKNOWN INJURY DIAGNOSES: - Other intermediate accountant (current) drug therapy - Personal history of nicotine dependence - Essential (primary) hypertension - Unspecified atrial flutter - Unspecified atrial fibrillation - Pain in right hip INPATIENT VISIT TRACKING (12 MO.) 04/24/2018 16:07 [facility] [place] TYPE: Medical Surgical COMPLAINT: - CLOSED R HIP FRACTURE DIAGNOSES: - intermediate accountant (current) use of anticoagulants - Unspecified dementia without behavioral disturbance - Presence of aortocoronary bypass graft - Chronic kidney disease, stage 3 (moderate) - 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 - Unspecified intracapsular fracture of right femur, initial encounter for closed fracture - Fall on same level, unspecified, initial encounter - Campsite as the place of occurrence of the external cause - Unspecified atrial fibrillation 12/22/2017 15:01 [facility] [place] TYPE: Critical Care COMPLAINT: - A-FIB/RVR DIAGNOSES: - 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 - Personal history of irradiation - intermediate accountant (current) use of opiate analgesic - Essential (primary) hypertension - Hypothyroidism, unspecified - Rheumatic disorders of both mitral and tricuspid valves - custodial (current) use of anticoagulants - Hypomagnesemia - Personal history of malignant neoplasm of larynx - Acute pulmonary edema - Cardiomyopathy, unspecified - Pulmonary hypertension, unspecified - Personal history of other malignant neoplasm of large intestine - Other intermediate accountant (current) drug therapy - Presence of aortocoronary bypass graft - Dehydration - Chronic atrial fibrillation - Hyperlipidemia, unspecified - Noninfective gastroenteritis and colitis, unspecified [email or web address]
[2018-09-04] MEDS ORDERED: ONDANSETRON ODT4 MG PO (13:17)
--- NOTE | 2018-09-05 07:26 | EKG ---
[facility] [address] [facility] [place] [address] Signed Normal sinus rhythm Nonspecific ST and T wave abnormality Abnormal ECG When compared with ECG of 22-DEC-2017 11:45, Sinus rhythm has replaced Atrial fibrillation Vent. rate has decreased BY 84 BPM Questionable change in QRS duration Confirmed by VITOR CAPPS MD ([id number]) on 09/05/2018 7:25:54 AM Electronically Signed By: VITOR CAPPS MD 09/05/18 0726 PATIENT NAME: JOSE CARLOS ABREU Electrocardiogram DATE OF : 40 PHYSICIAN: VITOR CAPPS MD REPORT #: [id number] REPORT IS CONFIDENTIAL AND NOT TO BE RELEASED WITHOUT AUTHORIZATION
[2018-09-06] MEDS ORDERED: AMIODARONE HCL100 MG PO (12:17)
--- NOTE | 2018-09-11 13:00 | OR ---
[facility] [address] [facility] [place] [address] Signed DATE OF OPERATION: 09/10/2018 SURGEON: Carlos Garcia MD TIME: 09:35 p.m. PREOPERATIVE DIAGNOSIS: Hypotension, presumed sepsis, need for central venous access for pressor administration. POSTOPERATIVE DIAGNOSIS: Hypotension, presumed sepsis, need for central venous access for pressor administration. PROCEDURE PERFORMED: Left subclavian triple-lumen central venous catheter placement. ANESTHESIA: 1% lidocaine. DESCRIPTION OF PROCEDURE: In the mild Trendelenburg position, the right neck, right infraclavicular, and left infraclavicular space were prepared with chlorhexidine solution and draped sterilely. Lidocaine 1% was injected over the right sternocleidomastoid muscle area. Using a Seldinger technique, the right internal jugular vein was easily accessed. Passage of a flexible J-wire through the needle allowed it to pass a certain distance and then would no longer pass. The different wire was insinuated. Again on passing, aspiration on the needle showed the catheter to be within the jugular vein. The needle was removed. Another attempt made with same results. The patient has had history of radiation therapy to the neck as well as a median sternotomy in the past. Mindful of the possibility of venous anomalies or other causes of impediment to passage of the wire, further attempts at a right internal jugular vein approach were abandoned. Attention was turned to the left infraclavicular space. Additional 1% lidocaine was injected and using the Seldinger technique, the left subclavian vein easily accessed showing dark, nonpulsatile blood. A flexible J-wire was passed through the needle without problem and without impediment. The site was incised with #11 blade and dilated with the enclosed Arrow Blue Tip blue dilator device and an Arrow Blue Tip triple-lumen catheter previously inspected and irrigated was passed over the wire without problem. The wire was removed. The catheter was withdrawn somewhat as the patient is somewhat small in stature. The catheter was secured to the skin with the enclosed nylon suture. Electronically Signed By: CARLOS GARCIA MD 09/11/18 1300 PATIENT NAME: JOSE CARLOS ABREU OPERATIVE REPORT DATE OF : 40 REPORT #: [id number] PHYSICIAN: CARLOS GARCIA MD PCP: DONNA MONET MD REPORT IS CONFIDENTIAL AND NOT TO BE RELEASED WITHOUT AUTHORIZATION [facility] [address] [place] [id number] Signed Anti-infective disk was applied as was an adherent dressing. Postprocedure chest x-ray showed catheter to be in atriocaval junction overall. There did appear to be patchy infiltrate bilaterally, which may account for her infectious problem. MD KATIE Loaiza/SEJAL /[id number] cc: Anuj Acuna MD Copies: ANUJ ACUNA DO ~ Electronically Signed By: CARLOS GARCIA MD 09/11/18 1300 PATIENT NAME: JOSE CARLOS ABREU OPERATIVE REPORT DATE OF : 40 REPORT #: [id number] PHYSICIAN: CARLOS GARCIA MD PCP: DONNA MONET MD REPORT IS CONFIDENTIAL AND NOT TO BE RELEASED WITHOUT AUTHORIZATION
--- NOTE | 2018-09-11 13:00 | CONS ---
[facility] [address] [place], [place] [address] Signed DATE OF CONSULTATION: 09/10/2018 TIME: 08:35 p.m. REQUESTING PHYSICIAN: Anuj Acuna MD PROBLEM: CT finding of abdominal wall hernia and enigmatic hypotension. HISTORY OF PRESENT ILLNESS: This 78-year-old white woman is known to me from the past having undergone upper endoscopy and balloon dilation of the proximal cervical esophageal stricture by balloon technique in June of 2018. 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 The patient is admitted to the hospital having sustained a fall and associated hip fracture with that. She is brought to the hospital several days after the incident apparently and she had not been eating well and had some nausea, vomiting, and other issues. It is recalled that she really eats nothing more than liquid diet based on her cervical dysphagia problem. She was evaluated by Dr. Robert, subsequently Dr. George of Orthopedic Service, who deemed her hip fracture to be such that immediate operative intervention was contraindicated, as she did have elevated creatinine suggestive of acute renal injury as well as markedly elevated liver enzymes suggestive of what is considered to be "shock liver." She has recovered largely from those maladies, though her creatinine remains elevated. Reconsideration for operative intervention has been made, but given her overall medical situation considered unlikely as a candidate for fracture surgery at this time. For the past day or two she has been having increased issues with low-grade hypotension. Urinalysis was performed, which showed a non-lactose fermenting organism according to Dr. Acuna and antibiotic therapy has been initiated. She is relatively hypotensive with systolic pressure of 78 to 98 and has been transferred to the intensive care unit. Examination of the abdomen was undertaken by Dr. Acuna, which showed to his examination mild right-sided tenderness on deep palpation. A CT scan was performed, I am not sure if after or before the examination, which showed a sizable right abdominal wall hernia, which included portion of colon and small bowel. The bowel did not appear thickened and there did not appear to be obstruction proper however. It is noted that she had right hemicolectomy for colon cancer in the past elsewhere. Upon transfer to the intensive care unit, she has been without sign of acute distress or Electronically Signed By: CARLOS GARCIA MD 09/11/18 [facility] PATIENT NAME: JOSE CARLOS ABREU CONSULTATION DATE OF : 40 REPORT #: [id number] PHYSICIAN: CARLOS GARCIA MD PCP: DONNA MONET MD REPORT IS CONFIDENTIAL AND NOT TO BE RELEASED WITHOUT AUTHORIZATION [facility] [address] [place], [place] [address] Signed pain, but remains relatively hypotensive and consultation has been made to assess whether the abdominal wall hernia may be contributing to her current situation of mildly elevated white count, relative hypotension and so on. Her current lab study shows white count of 14.6, yesterday it was 13.9, her hematocrit is 37.9, which has been stable. Her platelet count is 212,000. Her chem profile shows potassium this morning of 3.1, creatinine of 2.82. Current electrolytes are pending. Her BNP is noted to be 1170 consistent with underlying cardiovascular disease. Her liver enzymes today show bilirubin of 0.6, GGT of 100, AST 155, and ALT of 352. This is in contradistinction to an admission ALT of 1767 and an admission alkaline phosphatase normal at 95. A CT scan was performed earlier, shows no sign of dilated gallbladder or intrahepatic biliary ductal dilatation. The findings of the abdominal wall hernia are noted. She has a very large right renal cyst as well. The aorta is not impressively calcified. REVIEW OF SYSTEMS: The patient has dementia and therefore review of systems is somewhat unreliable. I did discuss on the phone with her [place] about her symptoms. The patient is not so well for quite some time, not particularly acutely different other than the recent fall causing hip fracture. She does not specifically complain of abdominal pain at this time. PHYSICAL EXAMINATION: GENERAL: Pleasant, somewhat withdrawn white woman, who does not look systemically toxic particularly. She is not diaphoretic. NECK: Trachea is midline. CHEST: Shows no tachypnea. HEART: Regular. ABDOMEN: With poor muscle tone overall. Gentle palpation throughout shows no severe tenderness. On the right side of the abdomen, where area of colonic and small bowel herniation is noted shows no tenderness on initial examination, very deep palpation particularly in the right upper quadrant area at the edge of hernia does show some tenderness no doubt. She does not have generalized peritonitis. There is no ascites. EXTREMITIES: Show no clubbing, cyanosis, or edema. ASSESSMENT: I think it is unlikely that she has her current problem related to the abdominal wall hernia. On examination, the hernia is not easily discernible though on CT scan quite obvious indeed. The defect appears rather large. There is no sign of small bowel obstruction or ischemic bowel in the herniated segment that I can tell. Whether or not her hernia may have accounted for her progressive nausea and vomiting that led up to her fall is uncertain, but more likely it is related to her cervical dysphagia, for which I have had first hand knowledge. She is now admitted to the intensive care unit and undergoing IV antibiotic therapy Electronically Signed By: CARLOS GARCIA MD 09/11/18 1300 PATIENT NAME: JOSE CARLOS ABREU CONSULTATION DATE OF : 40 REPORT #: [id number] PHYSICIAN: CARLOS GARCIA MD PCP: DONNA MONET MD REPORT IS CONFIDENTIAL AND NOT TO BE RELEASED WITHOUT AUTHORIZATION [facility] [address] [place] [id number] Signed empirically. A pressor agent has been decided upon by her managing physician, Dr. Acuna, and the request is made for central venous catheter for that purpose. The risks of bleeding, infection, pneumothorax, and other unforeseen complications related to its placement were reviewed primarily with her over the phone for which a phone consent has been obtained (ZEINAB Baldwin witnessing). Dr. Acuna talked to him about it as well. PLAN: Continued monitoring regarding the abdominal wall issue. Central venous catheter placement for pressor agent administration and blood draws. If progression of the symptoms should start to include more directly the hernia as the cause of her underlying problem, now considered "low-grade sepsis," then modification of plan could be undertaken, though she does have extremely high risk profile based on her underlying comorbidities. MD KATIE Loaiza/SEJAL /[id number] cc: MD Luis Carlos Sims MD Copies: ANUJ ACUNA ROBERT MD ~ Electronically Signed By: CARLOS GARCIA MD 09/11/18 1300 PATIENT NAME: JOSE CARLOS ABREU CONSULTATION DATE OF : 40 REPORT #: [id number] PHYSICIAN: CARLOS GARCIA MD PCP: DONNA MONET MD REPORT IS CONFIDENTIAL AND NOT TO BE RELEASED WITHOUT AUTHORIZATION
--- NOTE | 2018-09-14 07:16 | HP ---
[facility] [address] [place], [place] [address] Signed ADMISSION DATE: 09/04/2018 HISTORY OF PRESENT ILLNESS: Jose Carlos is a 78-year-old, white female, whom I have treated over the last several years. Most recently, about five days ago she had a ground level fall at home. Her tried to take care of her but was struggling and actually brought her to the hospital yesterday. X-rays revealed a displaced subcapital fracture of the left hip. Interestingly she had an almost identical history and identical injury within the last year. We treated her right displaced subcapital fracture with an endoprosthesis on the right which did fairly well. At the present time, she has no other complaints. PAST MEDICAL HISTORY: REVIEW OF SYSTEMS: Deferred to the internal medicine consultants note. At the present time, her only complaint is pain in the left groin area. PHYSICAL EXAMINATION: GENERAL: She is a pleasant although clearly quite confused elderly white female, in no acute distress. HEAD, EARS EYES, NOSE, AND THROAT: Do not reveal any evidence of craniofacial trauma. NECK: Unremarkable. CHEST: Clear. There is no tenderness to palpation over the rib cage. ABDOMEN: Benign. EXTREMITIES: Left leg is shortened and externally rotated. NEUROVASCULAR: Examination is unremarkable in the extremities. DIAGNOSTIC DATA: Her x-rays and x-ray reports were reviewed. She has a completely displaced subcapital fracture on the left. Discussed with her that this will probably need an endoprosthesis, the same as we did on the other side recently. However, she has been taking her anticoagulant religiously and her INR is dramatically elevated at over 7. Because she is on Xarelto without a good reversal agent I will simply have to wait for her INR to normalize. We will have her continue on bed rest with diet as tolerated and pain medication as needed. Once her INR normalizes, we will plan on taking her to the operating room for an endoprosthesis. Electronically Signed By: JOSE LUIS SMITH MD 09/14/18 0716 PATIENT NAME: JOSE CARLOS ABREU HISTORY AND PHYSICAL DATE OF : 40 REPORT #: [id number] PHYSICIAN: JOSE LUIS SMITH MD PCP: DONNA MONET MD REPORT IS CONFIDENTIAL AND NOT TO BE RELEASED WITHOUT AUTHORIZATION [address] [address] Signed Jose Luis Smith MD WFB/MODL /[id number] Copies: ~ Electronically Signed By: JOSE LUIS SMITH MD 09/14/18 0716 PATIENT NAME: JOSE CARLOS ABREU HISTORY AND PHYSICAL DATE OF : 40 REPORT #: [id number] PHYSICIAN: JOSE LUIS SMITH MD PCP: DONNA MONET MD REPORT IS CONFIDENTIAL AND NOT TO BE RELEASED WITHOUT AUTHORIZATION
[2018-09-15] MEDS ORDERED: COREG3.125 MG PO (18:20)
[2018-09-15] MEDS ORDERED: COREG6.25 MG PO (18:20)
[2018-09-15] MEDS ORDERED: HYDROCODON-ACE1 EA11 PO (18:21)
[2018-09-15] MEDS ORDERED: LEVOTHYROXINE88 MCG PO (18:21)
[2018-09-15] MEDS ORDERED: PROZAC10 MG PO (18:21)
== END 2018-09-16 12:53 | DRG 535 ==
LOC: ED 13:03 → MS 14:51 → CCU 14:51 → MS 09-07 13:01 → CCU 09-10 20:14 → MS 09-11 18:07
PROVIDERS: ADMIT Orthopaedic Surgery
PROC: 02H633Z Insertion of Infusion Device into Right Atrium, Percutaneous Approach (ICD-10-PCS; principal; 2018-09-10)
PROC: 3E043XZ Introduction of Vasopressor into Central Vein, Percutaneous Approach (ICD-10-PCS; 2018-09-10)
DX: S72.012A Unspecified intracapsular fracture of left femur, initial encounter for closed fracture (principal); J96.91 Respiratory failure, unspecified with hypoxia; N17.0 Acute kidney failure with tubular necrosis; K72.00 Acute and subacute hepatic failure without coma; A41.51 Sepsis due to Escherichia coli [E. coli]; E43 Unspecified severe protein-calorie malnutrition; E87.0 Hyperosmolality and hypernatremia; N39.0 Urinary tract infection, site not specified; Z68.1 Body mass index [BMI] 19.9 or less, adult; I38 Endocarditis, valve unspecified; R79.1 Abnormal coagulation profile; I48.2 Chronic atrial fibrillation; E87.70 Fluid overload, unspecified; K43.9 Ventral hernia without obstruction or gangrene; K22.2 Esophageal obstruction; E03.9 Hypothyroidism, unspecified; R11.0 Nausea; E86.1 Hypovolemia; E87.6 Hypokalemia; E78.5 Hyperlipidemia, unspecified; I12.9 Hypertensive chronic kidney disease with stage 1 through stage 4 chronic kidney disease, or unspecified chronic kidney disease; N18.9 Chronic kidney disease, unspecified; F03.90 Unspecified dementia, unspecified severity, without behavioral disturbance, psychotic disturbance, mood disturbance, and anxiety; W01.0XXA Fall on same level from slipping, tripping and stumbling without subsequent striking against object, initial encounter; Y92.000 Kitchen of unspecified non-institutional (private) residence as the place of occurrence of the external cause; Y84.2 Radiological procedure and radiotherapy as the cause of abnormal reaction of the patient, or of later complication, without mention of misadventure at the time of the procedure; Z66 Do not resuscitate; Z79.01 Long term (current) use of anticoagulants; Z79.899 Other long term (current) drug therapy; Z85.038 Personal history of other malignant neoplasm of large intestine; Z87.891 Personal history of nicotine dependence; Z85.21 Personal history of malignant neoplasm of larynx; Z96.641 Presence of right artificial hip joint
CPT/HCPCS: 36415; 71045; 73502; 74176; 76775; 80048; 80053; 80076; 81001; 82550; 82570; 82977; 83615; 83690; 83735; 83880; 84100; 84540; 85025; 85610; 85730; 86850; 86900; 86901; 87077; 87088; 87186; 93005; 93010; 96374; 96375; 97110; 97116; 97163; 97167; 97530; 97535; 99284-25; J0696; J1100; J1644; J1650; J1885; J1940; J2250; J2270; J2274; J2405; J2704; J2765; J2997; J3010; J3475; J3480; J7030; J7060; J7070; J7120

== ENCOUNTER 2018-12-22 16:23 | Inpatient (IN) | payer MEDICARE, OTHER ==
[~2018-12-22] VITALS: Ht 147.3 cm; Wt 39.2 kg
[~2018-12-22 16:23] MED LIST changes: +AMIODARONE HCL100 MG PO; +COREG3.125 MG PO; +HYDROCODON-ACE1 EA11 PO; +LEVOTHYROXINE88 MCG PO; +ONDANSETRON ODT4 MG PO; +PROZAC10 MG PO
--- OUTSIDE RECORDS SUMMARY | 2018-12-22 16:26 | XMS ---
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 Care History Medical/Surgical 09/06/2018 [facility] - Patient is currently established with [facility]. If patient is seen in the ED during business hours. Please contact CHWs at [facility]. Care Recommendation: This patient has had 5 or more Emergency Department visits in the last 12 months.\T\nbsp; Patient requires education on the scope and purpose of the ED as an acute care provider not a Primary Care Provider and should not be utilized for chronic conditions.\T\nbsp; These are guidelines and the provider should exercise clinical judgment when providing care. 11/02/2017 [facility] - CHW contacted patient about becoming established with [facility] as a PCP. - Patient stated she just got back from [place] and will be starting the new patient [...] ED please contact Community Health WorkerAmanda at [phone]. These are guidelines and the provider should exercise clinical judgment when providing care. E.D. VISIT COUNT (12 MO.) [address] [place] TOTAL 4 NOTE: Visits indicate total known visits. ED/UCC VISIT TRACKING (12 MO.) 12/22/2018 16:23 [facility] [place] TYPE: Emergency COMPLAINT: - L SWOLLEN JAW/FACE 09/04/2018 13:04 [facility] [place] TYPE: Emergency COMPLAINT: - NAUSEA/PAIN 04/24/2018 13:35 [facility] [place] TYPE: Emergency COMPLAINT: - FALL 12/22/2017 11:34 [facility] [place] TYPE: Emergency COMPLAINT: - VOMITING,DIARRHEA INPATIENT VISIT TRACKING (12 MO.) 09/04/2018 14:51 [facility] [place] TYPE: Medical Surgical COMPLAINT: - L HIP FRACTURE DIAGNOSES: - Fall on same level from slipping, tripping and stumbling without subsequent striking against object, initial encounter - Unspecified dementia without behavioral disturbance - Esophageal obstruction - Presence of right artificial hip joint - detention (current) use of anticoagulants - Unspecified intracapsular fracture of left femur, initial encounter for closed fracture - Do not resuscitate - Hypovolemia - Hypokalemia - Nausea - Respiratory failure, unspecified with hypoxia - Acute and subacute hepatic failure without coma - Sepsis due to Escherichia coli [E. coli] - Hyperlipidemia, unspecified - Kitchen of unspecified non-institutional (private) residence as the place of occurrence of the external cause - Abnormal coagulation profile - Radiological procedure and radiotherapy as the cause of abnormal reaction of the patient, or of later complication, without mention of misadventure at the time of the procedure - Personal history of nicotine dependence - Other correction (current) drug therapy - Acute kidney failure with tubular necrosis - Unspecified severe protein-calorie malnutrition - Endocarditis, valve unspecified - Body mass index (BMI) 19.9 or less, adult - Personal history of malignant neoplasm of larynx - Personal history of other malignant neoplasm of large intestine - Urinary tract infection, site not specified - Hypertensive chronic kidney disease with stage 1 through stage 4 chronic kidney disease, or unspecified chronic kidney disease - Chronic atrial fibrillation - Ventral hernia without obstruction or gangrene - Chronic kidney disease, unspecified - Hypothyroidism, unspecified - Fluid overload, unspecified - Hyperosmolality and hypernatremia 04/24/2018 16:07 [facility] [place] TYPE: Medical Surgical COMPLAINT: - CLOSED R HIP FRACTURE DIAGNOSES: - detention (current) use of anticoagulants - Unspecified dementia without behavioral disturbance - Presence of aortocoronary bypass graft - Chronic kidney disease, stage 3 (moderate) - 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 - Unspecified intracapsular fracture of right femur, initial encounter for closed fracture - Fall on same level, unspecified, initial encounter - Campsite as the place of occurrence of the external cause - Unspecified atrial fibrillation 12/22/2017 15:01 [facility] TYPE: Critical Care COMPLAINT: - A-FIB/RVR DIAGNOSES: - 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 - Personal history of irradiation - detention (current) use of opiate analgesic - Essential (primary) hypertension - Hypothyroidism, unspecified - Rheumatic disorders of both mitral and tricuspid valves - detention (current) use of anticoagulants - Hypomagnesemia - Personal history of malignant neoplasm of larynx - Acute pulmonary edema - Cardiomyopathy, unspecified - Pulmonary hypertension, unspecified - Personal history of other malignant neoplasm of large intestine - Other intermediate teacher (current) drug therapy - Presence of aortocoronary bypass graft - Dehydration - Chronic atrial fibrillation - Hyperlipidemia, unspecified - Noninfective gastroenteritis and colitis, unspecified [email or web address]
[2018-12-22] MEDS ORDERED: LEVOTHYROXINE100 MCG PO (17:46)
--- NOTE | 2018-12-22 22:15 | NUR ---
PT ADMITTED TO ROOM 121 FROM ED, REQUIRED STAFF TO SLIDE ACROSS FROM STRETCHER TO BED. UNAWARE OF WHERE SHE IS, STATED SHE HAD JUST COME BACK FROM VACATION, HOWEVER, SHE LIVES AT [facility]. HAS HAD SWOLLEN PAINFUL LEFT JAW/MOUTH FOR "4 DAYS". RESP EVEN AND UNLABORED. PT IS INCONT, WITH A REDDENED COCCOYX. SWALLOWS WITHOUT DIFFICULTY.
--- NOTE | 2018-12-22 22:34 | NUR ---
PT IV IS ACTUALLY IN HER RIGHT FOREARM, DC'D AND WILL DOC IV IN HER RIGHT ARM
--- NOTE | 2018-12-22 23:00 | NUR ---
PT ABLE TO DRINK WATER AND TAKE MEDICATIONS WITHOUT DIFFICULTY. CALL LIGHT WITHIN REACH.
--- NOTE | 2018-12-23 01:30 | NUR ---
ASSESSMENT COMPLETE BY THIS RN. PT A/O TO SELF, PLACE, DATE, AND EVENTS AT THIS TIME. WILL MONITOR. IV ABX COMPLETE. ATTEMPT TO PLACE SECOND IV UNSUCCESSFUL BY HIMS CLERK.SECOND IV PLACED BY THIS RN AT LEFT WRIST. PT TOLERATED WELL, IV SITE WNL. BLOOD RETURN NOTED. DRY ATTENDS IN PLACE, JERMAINE AREA REDDENED. WILL MONITOR FOR INCONTINENCE. PT DENIES PAIN, NO NEEDS AT THIS TIME. CALL LIGHT IN REACH. BED ALARM ON FOR SAFETY. IV POTASSIUM INFUSING PER MD ORDERS, LIDOCAINE ADDED BY THIS RN, VERIFIED BY SECOND SALES MARKET LEADER RN.
--- NOTE | 2018-12-23 01:39 | NUR ---
pt's vital signs were taken and was checked for incontinence. pt did not need to be changed but was repositioned higher in the bed. pt now resting safely with call light in reach and bed alarm on.
--- NOTE | 2018-12-23 06:50 | NUR ---
ASSESSMENT COMPLETE, NO NEW CONCERNS. SCHEDULED THYROID MEDICATION ADMINISTERED. PT REPOSITIONED IN BED, PILLOW UNDER RIGHT LATERAL. DRY ATTENDS IN PLACE. NO ADDITIONAL NEEDS, CALL LIGHT IN REACH.
--- NOTE | 2018-12-23 07:05 | NUR ---
BEDSIDE HANDOFF REPORT RECEIVED FROM FUR REMODELER RN. PT RESTING QUIETLY IN BED. BED ALARM IN PLACE.
--- NOTE | 2018-12-23 07:35 | NUR ---
PATIENT SLEEPING. CALL LIGHT WITHIN REACH. NO OTHER NEEDS AT THIS TIME
--- NOTE | 2018-12-23 08:21 | NUR ---
PATIENT RESTING IN BED. PATIENT'S BREAKFAST ORDERED. CALL LIGHT WITHIN REACH. NO OTHER NEEDS AT THIS TIME
--- NOTE | 2018-12-23 09:02 | NUR ---
RESTINGIN BED. PT ALERT AND ORIENTED, FORGET FUL AT TIMES. PT ON ROOM AIR, LUNG SOUNDS CLEAR. PT COMPLAINT OF SLIGHT NAUSEA, DECLINING NAUSEA MEDICATION AT THIS TIME, EATING CLEAR LIQUID TRAY, BOWEL TONES ACTIVE. PT REPORT OF NUMBNESS TO BLE, REPOSITIONED IN BED, PULSES PALPABLE. PT INCONTINENT OF URINE, BRIEFS IN PLACE. D5LR INFUSING AT 75 ML/HR, IV TORADOL GIVEN. PT DENIES OTHER NEEDS AT THIS TIME. BED ALARM IN PLACE.
--- NOTE | 2018-12-23 09:38 | NUR ---
PATIENT RESTING IN BED. ATTEND CHANGED. ONE PERSON ASSISTING. PATIENT REPOSITONED ON HER LEFT SIDE. VITAL SIGNS AND I&O DONE. CALL LIGHT WITHIN REACH. NO OTHER NEEDS AT THIS TIME
--- NOTE | 2018-12-23 09:50 | NUR ---
PT SON IN ROOM. IV CATH REMOVED FOR DISCHARGE. PT SET UP FOR SHOWER. PT INSTRUCTED TO CALL WHEN SHOWER COMPLETED FOR DRESSING CHANGE AND DISCHARGE INSTRUCTIONS.
--- NOTE | 2018-12-23 11:00 | NUR ---
UNASYN INFUSING PER ORDER. VERIFIED COMPATIBILITY WITH TYLER PHARMACIST. AT BEDSIDE, UPDATED ON PT CONDITION AND PLAN OF CARE. PT DENIES OTHER NEEDS AT THIS TIME.
--- NOTE | 2018-12-23 13:02 | NUR ---
PATIENT RESTING IN BED. VITAL SIGNS AND I&O DONE. PATIENT REPOSITIONED ON HER RIGHT SIDE. ICE WATER GIVEN. CALL LIGHT WITHIN REACH. NO OTHER NEEDS AT THIS TIME
--- NOTE | 2018-12-23 14:59 | NUR ---
PT RESTING IN BED. PT RATING PAIN 4/10 TOLEFT CHEEK/NECK, GIVEN 15 MG TORADOL PER ORDER. PT DENIES OTHER NEEDS AT THIS TIME.
--- NOTE | 2018-12-23 16:54 | NUR ---
PT ALERT/ DISORIENTED AT TIMES, HX OF DEMENTIA. PT ON ROOM AIR, LUNG SOUNDS CLEAR. PT WITH LESS PAIN AND SWELLING TO LEFT CHEEK AND NECK, ADVANCED TO PUREED DIET, SMALL APPETITE. D5LR AT 75 ML/HR, IV UNASYN. PT INCONTINENT OF URINE, QS. PLAN FOR DC TOMORROW.
--- NOTE | 2018-12-23 19:03 | NUR ---
SHIFT REPORT RECEIVED FROM DAYSHIFT ZEINAB SMART AT BEDSIDE. PT RESTING IN BED, EYES CLOSED, RR WNL. PT APPEARS COMFORTABLE, NO SIGNS OF DISTRESS NOTED. CALL LIGHT IN REACH.
--- NOTE | 2018-12-23 21:17 | NUR ---
CHARGE NURSE ROUNDING NOTE: HOB ELEVATED, AWAKENS EASILY. NO C/O PAIN. REPOSITIONED IN BED. PT IS A TURN 2QH. COOPERATIVE.
--- NOTE | 2018-12-23 21:18 | NUR ---
CHARGE NURSE ROUNDING NOTE: AWAKE, FEET DRESSING IN PLACE WITH OLD SHADOWING. MORE ALERT, ANSWERING APPROPRIATELY, FRESH WATER GIVEN. NO C/O PAIN. VISITING WITH SON.
--- NOTE | 2018-12-23 22:00 | NUR ---
WITH THE HELP OF ZEINAB IRAHETA WE GOT PT CHANGED DUE TO INCONTINCE OF URINE. BEDSIDE TABLE AND CALL LIGHT IN REACH.
--- NOTE | 2018-12-23 22:10 | NUR ---
ASSESSMENT COMPLETE, SCHEDULED MEDICATIONS ADMINISTERED. WHEN THIS RN PULLED IV ABX AND BEGAN TO MIX, ABX BEGAN TO LEAK FROM BAG. SURGICAL ENDOSCOPIST AWARE, NEW IV ABX MIXED BY BROADBAND INSTALLER. IV SITE X2 WNL, BLOOD RETURN NOTED. REDDENED AREA TO BUTTOCKS NOTED, BLANCHABLE, PT REPOSITIONED IN BED WITH HELP FROM MEDHAT OCTOBER. HIPS FLOATED IN BED.PT INCONTINENT, NEW ATTENDS IN PLACE. BARRIER CREAM AND NYSTATIN APPLIED. PT WAS FORGETFUL AND MADE MULTIPLE STATEMENTS REGARDING PAIN IN LEFT EAR, THIS RN ORIENTED PT AND INFORMED PT OF IV ABX WELL SCHEDULED TORADOL. PT DENIES ADDITIONAL NEEDS. CALL LIGHT IN REACH, BED ALARM ON FOR SAFETY.
--- NOTE | 2018-12-24 01:00 | NUR ---
PT INCONTINENT OF URINE, NEW ATTENDS IN PLACE, JERMAINE CARE COMPLETE. PT REPOSITIONED IN BED WITH HELP FROM MEDHAT OCTOBER. PT DENIES ADDITIONAL NEEDS, CALL LIGHT IN REACH. IV FLUIDS INFUSING PER MD ORDERS, SITE WNL.
--- NOTE | 2018-12-24 01:01 | NUR ---
WITH THE HELP OF ZEINAB IRAHETA WE CHANGED HER ATTEND INCONTINENT WITH URINE. REPOSITIONED HER IN BED. BEDSIDE TABLE AND CALL LIGHT IN REACH. PT NEEDS NOTHING MORE AT THIS TIME.
--- NOTE | 2018-12-24 01:30 | NUR ---
WARM BLANKET PROVIDED BY SUPERVISOR JOINERS OCTOBER PER PT REQUEST.
--- NOTE | 2018-12-24 01:33 | NUR ---
THIS RN IN ROOM TO ANSWER CALL LIGHT. PT STATES, "I'M TOO WARM, CAN YOU TAKE THE EXTRA BLANKET OFF PLEASE". PT DENIES ADDITONAL NEEDS.
--- NOTE | 2018-12-24 01:37 | NUR ---
BACK SCRATCHED BY THIS RN PER PT REQUEST. PT DENIES ADDITIONAL NEEDS, CALL LIGHT IN REACH.
--- NOTE | 2018-12-24 03:35 | NUR ---
ASSESSMENT COMPLETE, NO NEW CHANGES OR CONCERNS. NEW BAG OF IV FLUIDS INFUSING PER MD ORDERS, IV SITE WNL. PT REPOSITONED AND TURNED IN BED. PT INCONTINENT OR URINE, JERMAINE CARE COMPLETE AND NEW ATTENDS IN PLACE WITH HELP FROM MEDHAT MARGI. COMIC ILLUSTRATOR DM ASSESSED DISTENTION/LUMP TO PT'S RIGHT LATERAL. PER COMIC ILLUSTRATOR, NON EMERGENCY. DR PORTILLO MESSSAGED REGARDING DISTENSION/LUMP. PT DENIES ADDITIONAL NEEDS, CALL LIGHT IN REACH.
--- NOTE | 2018-12-24 03:42 | NUR ---
WITH THE HELP OF ZEINAB IRAHETA WE CHANGED PT'S ATTEND . BEDSIDE TABLE AND CALL LIGHT WITHIN REACH.
--- NOTE | 2018-12-24 04:49 | NUR ---
WITH THE HELP OF ZEINAB IRAHETA WE VHANGED PT'S ATTEND. VITALS AND I&OS DONE AND CHARTED. FRESH WATER GIVEN. BEDSIDE TABLE AND CALL LIGHT IN REACH.
--- NOTE | 2018-12-24 05:01 | NUR ---
VSS, PT ON RA. FORGETFUL, HX OF DEMENTIA. BED ALARM ON FOR SAFETY. IV FLUIDS INFUSING PER MD ORDERS, IV SITES X2 WNL, BLOOD RETURN NOTED. SCHEDULED IV ABX. PT INCONTINENT, VOIDING QS. NO BM THIS SHIFT. LUMP NOTED TO PT'S RIGHT LATERAL, UTILITY AGENT AWARE. PERSONAL MESSAGE SENT DR PORTILLO. REDDENED COCCYX, BLANCHABLE, SCHEDULED NYSTATIN AND BARRIWER CREME. Q2H TURNS.
--- NOTE | 2018-12-24 05:23 | NUR ---
pt reporting 4/10 pain to left ear/jaw. 2.5 mg of prn oxycodone administered.
--- NOTE | 2018-12-24 07:00 | NUR ---
BEDSIDE HANDOFF REPORT RECEIVED FROM AUTHORIZER RN. PT SLEEPING, LEFT UNDISTURBED. IV FLUIDS INFUSING D5LR AT 75ML/HR.
--- NOTE | 2018-12-24 07:57 | NUR ---
PATIENT UP TO CHAIR WITH 2 PERSON PIVOT TRANSFER. PATIENT INCONTINENT.
--- NOTE | 2018-12-24 09:10 | NUR ---
PT RESTING IN BED, TRYIGN TO EAT BREAKFAST, COMPLAINT OF PAIN WITH EATIGN TO LEFT EAR. PT FORGETFUL, UNABLE TO REMEMBER REASON FOR ADMISSION, REORIENTED. PT ON ROOM AIR, LUNG SOUNDS CLEAR. PT PROVIDED WITH OXYCODONE AND TORADOL FOR PAIN, ENCOURAGED TO CONTINUE TO TRY TO EAT. D5LR AT 75 ML/HR. BOWEL TONES ACTIVE. PT WITHOUT EDEMA, CMS INTACT. PT INCONTINENT OF URINE, PERICARE PROVIDED, BARRIER CREAM AND NYSTATIN APPLIED, BLANCHABLE REDNESS TO BUTTOCK. DISCUSSED PLAN OF CARE FOR THE DAY. PT DENIES OTHER NEEDS AT THIS TIME.
--- NOTE | 2018-12-24 10:47 | NUR ---
PT GIVEN ADDITIONAL DOSE OF COREG PER ORDER. PT RESTIGN IN BED. PT SLOWLY SIPPING ON POTASSIUM CHLORIDE. PT DENIES OTHER NEEDS AT THIS TIME.
--- NOTE | 2018-12-24 15:13 | NUR ---
AFTERNOON ASSESSMENT COMPLETED, NO ACUTE CHANGES. PT CONTINUES TO REPORT PAIN TO LEFT CHEEK AND EAR, SWELLING SLIGHTLY IMPROVED. PT STAND PIVOT TO [facility], HAD VERY LARGE BM. ASSISTED TO CHAIR.
--- NOTE | 2018-12-24 17:30 | NUR ---
PT GIVEN EVENING DOSE OF POTASSIUM CHLORIDE POWDER. PT WITH POOR APPETITE, ENCOURAGED TO EAT DINNER. IV UNASYN INFUSING. PT DENIES OTHER NEEDS AT THSI TIME.
--- NOTE | 2018-12-24 18:41 | NUR ---
PT FORGETFUL, DISORIENTED TO DATE AND SITUATION. PT ON ROOM AIR, LUNG SOUNDS CLEAR. PT WITH POOR ORAL INTAKE DUE TO PAIN, ENCOURAGE, ENSURE. PT WITH LEFT SIDE CHEEK AND EAR PAIN, SWELLING IMPROVED FROM YESTERDAY. PT INCONTINENT OF URINE, QS. PT 2PA STAND PIVOT TO CHAIR. PT HAD LARGE BM TODAY AFTER SUPPOSITORY.
--- NOTE | 2018-12-24 21:49 | NUR ---
PT LYING IN BED WATCHING TV. DENIES PAIN OR NAUSEA. ORIENTED TO SELF AND LOCATION, SAYS "WHEN I CAME IN I WAS ILL." IV INFUSING WNL IN RIGHT WRIST, LEFT WRIST IV SL, FLUSHES EASILY, DRESSINGS INTACT. TURN Q2. JERMAINE AREA REDDENED BUT SKIN OTHERWISE INTACT. BED ALARM ON. CALL LIGHT WITHIN REACH. PT VISIBLE FROM NURSES STATION.
--- NOTE | 2018-12-24 22:08 | NUR ---
nurse discharge planner rounding note. pt resting in bed with eyes closed. call light within reach. room in view of rn station. bed alarm active. white board updated.
--- NOTE | 2018-12-24 23:30 | NUR ---
Patient was very needy, repostioned patient several times. changed he as she is in cont. gave fresh water call light in reach.
--- NOTE | 2018-12-24 23:54 | NUR ---
PT RESTING IN BED, EYES CLOSED, RESP EVEN AND UNLABORED. BED ALARM ON.
--- NOTE | 2018-12-25 02:49 | NUR ---
PT RESTING IN BED ON RIGH SIDE. APPEARS TO BE SLEEPING. RESP EVEN AND UNLABORED. BED ALARM ON.
--- NOTE | 2018-12-25 04:15 | NUR ---
PT RESTING IN BED. APPEARS TO BE SLEEPING, EYES CLOSED, RESP EVEN AND UNLABORED.
--- NOTE | 2018-12-25 06:26 | NUR ---
PT SITTING UP IN BED WATCHING TV. ORIENTED TO SELF AND LOCATION. DENIES PAIN OR OTHER CONCERNS AT THIS TIME. TOOK AM PILL WITHOUT DIFFICULTY. BED ALARM ON.
--- NOTE | 2018-12-25 07:31 | NUR ---
0710: REPORT RECIEVED FROM PEEWEE ARRIOLA. PT RESTING IN HER BED WITH NO COMPLAINTS AT THIS TIME. CALL SMITH WITHIN REACH.
--- NOTE | 2018-12-25 08:56 | NUR ---
PT RESTING IN HER CHAIR EATING A SMALL AMOUNT OF HER BREAKFAST. SHE DENIES ANY PAIN AT THIS TIME AND APPEARS IN NO DISTRESS. CALL SMITH WITHIN REACH AND A CHAIR ALARM WAS PLACED AND TURNED ON. PT DECLINED A SHOWER AT THIS TIME.
--- NOTE | 2018-12-25 10:03 | NUR ---
Pt resting in her bed and she denies any pain. She states that she needs changed. Pt was checked and her attends were clean and dry. There is some slight reddness on the medial aspects of each knee which are blanchable and a pillow was placed between her knees. Pt quick to sleep after she was readjusted in her bed. IV infusing as ordered and the bed alarm is on.
[2018-12-25] MEDS ORDERED: AMLODIPINE BES2.5 MG PO (12:46)
[2018-12-25] MEDS ORDERED: CARVEDILOL6.25 MG PO (12:47)
[2018-12-25] MEDS ORDERED: AUGMENTIN 500-1 EACH PO (12:48)
--- NOTE | 2018-12-25 12:57 | NUR ---
GAVE PATIENT A SHOWER. THE OTHER SCALING MACHINE OPERATOR HELPED ME TRANSFER HER FROM HER BED TO THE SHOWER CHAIR. CHANGED BED LINENS. AFTER SHOWER THE NURSE AND I SHIFT HER UP IN CHAIR. PUT HER TAPED ATTENDS ON. NURSE WENT AND GOT HER A WARM BLANKET.
--- NOTE | 2018-12-25 14:36 | NUR ---
PT READY FOR DISCHARGE AND THE WHEEL CHAIR VAN IS COMING TO PICK HER UP AT 3:30. HER IV SITES HAVE BEEN DC'D TIPS INTACT, NO BLEEDING NOTED. THE PT'S IS AT THE BEDSIDE AND AWARE HE NEEDS TO WASTE RECYCLER HER MEDICATIONS FROM HER RX. REPORT HAS BEEN CALLED TO FOSTER ARRIOLA AT [facility] AND THE ORDERS WERE FAXED TO HER WHICH SHE STATES SHE HAS RECIEVED.
--- NOTE | 2018-12-25 15:26 | NUR ---
1525: PT TRANSFERED TO [facility] AT THIS TIME.
== END 2018-12-25 15:25 | disposition home or self-care (01) | DRG 155 ==
LOC: ED 16:23 → MS 16:24 → ED 16:24 → MS 21:44
PROVIDERS: ADMIT Internal Medicine
DX: K11.21 Acute sialoadenitis (principal); E87.1 Hypo-osmolality and hyponatremia; I50.22 Chronic systolic (congestive) heart failure; Z68.1 Body mass index [BMI] 19.9 or less, adult; E44.0 Moderate protein-calorie malnutrition; R74.0 Nonspecific elevation of levels of transaminase and lactic acid dehydrogenase [LDH]; F03.90 Unspecified dementia, unspecified severity, without behavioral disturbance, psychotic disturbance, mood disturbance, and anxiety; E87.6 Hypokalemia; F39 Unspecified mood [affective] disorder; R13.12 Dysphagia, oropharyngeal phase; K22.2 Esophageal obstruction; E83.42 Hypomagnesemia; I25.10 Atherosclerotic heart disease of native coronary artery without angina pectoris; I48.0 Paroxysmal atrial fibrillation; I11.0 Hypertensive heart disease with heart failure; M84.459D Pathological fracture, hip, unspecified, subsequent encounter for fracture with routine healing; Y84.2 Radiological procedure and radiotherapy as the cause of abnormal reaction of the patient, or of later complication, without mention of misadventure at the time of the procedure; Z99.3 Dependence on wheelchair; Z85.21 Personal history of malignant neoplasm of larynx; Z95.1 Presence of aortocoronary bypass graft; Z79.01 Long term (current) use of anticoagulants; Z79.891 Long term (current) use of opiate analgesic; Z79.899 Other long term (current) drug therapy
CPT/HCPCS: 36415; 70491; 80053; 83735; 85007; 85025; 85032; 99284-25; J0295; J1885; J2405; J3475; J3480; J7040; J7120

== ENCOUNTER 2021-01-29 11:53 | Inpatient (IN) | payer MEDICARE, OTHER ==
[~2021-01-29] VITALS: Ht 147.3 cm; Wt 42.5 kg
[~2021-01-29 11:53] MED LIST changes: +AMLODIPINE BES2.5 MG PO; +AUGMENTIN 500-1 EACH PO; +CARVEDILOL6.25 MG PO; +FLUOXETINE HCL20 MG PO
[2021-01-29] MEDS ORDERED: LEVOTHYROXINE112 MCG PO (12:13)
--- NOTE | 2021-01-29 16:15 | NUR ---
PATIENT ADMITTED TO CCU FOR COVID/HYPOXIA AT 1520. PT PULLED FROM STRETCHER TO CCU BED. PT ON BIPAP OF 14/8 AND 50% UPON ARRIVAL. RT IN ROOM AND TURNS PATIENT DOWN TO 24%, BUT PATIENT NOT MAINTAINING OXYGEN LEVEL ON 24%, THERE FOR INCREASED TO 30%. PATIENT HAS SOME SOFT BPs, RANGING 88-97/60-70s. PT HAS A TEMP PROBE SYZMANSKI AND A FEVER OF 100.5 N OTED. HR IN THE 120-130s PRETTY CONSISTENTLY, AND NOTED TO BE IN AFIB. PT HAS A HISTORY OF AFIB PER REPORT. IV MEDICATIONS STARTED INCLUDING REMDESEVIR, IV DECADRON, IV CEFAPIME AND IV LEVAQUIN. PT FINISHES HER SECOND L BOLUS. REPEAT LACTIC NOTED TO BE 2.8. IV SITES IN LEFT WRIST AND RIGHT FOREARM. PT TAKEN OFF BIPAP AT 1615 AND PLACED ON 2L NC. PRONING PROTOCOL ORDERED FOR PATIENT. UNABLE TO LISTEN TO LUNGS AT THIS TIME DUE TO PAPR, BUT WILL RETURN TO ROOM WITH N95 TO LISTEN TO LUNGS. ATTENDS IN PLACE UPON ADMISSION. PT LIVES AT [facility].
[2021-01-29] MEDS ORDERED: BISACODYL10 MG PR (17:22)
[2021-01-29] MEDS ORDERED: IMODIUM A-D2 M2 PO (17:23)
[2021-01-29] MEDS ORDERED: MILK OF MA400 MG/5 M PO (17:24)
[2021-01-29] MEDS ORDERED: TYLENOL EXTRA500 MG PO (17:25)
--- NOTE | 2021-01-29 17:26 | NUR ---
MED REC COMPLETE
--- NOTE | 2021-01-29 18:19 | NUR ---
DR. CHINO UPDATED ON HR. ORDER FOR 6.25 MG COREG PLACED AND GIVEN TO PATIENT. PT TOLERATED WELL. U/O LAST HOUR WAS 40 ML. CONTINUE TO MONITOR. IVF AT 75 ML/HR.
--- NOTE | 2021-01-29 19:30 | NUR ---
[facility]. pt RESTING IN BED ON LEFT SIDE. CALL LIGHT WITHIN REACH. NO NEEDS AT THIS TIME.
--- NOTE | 2021-01-29 19:50 | NUR ---
GTT STARTED PER ORDERS AT 5MG/HR. TEZ ARRIOLA VERIFIED SETTINGS. pt PLEASANT. NO NEEDS AT THIS TIME. CALL LIGHT WITHIN REACH.
--- NOTE | 2021-01-29 20:13 | EKG ---
[facility] [address] [place] [address] Signed Atrial fibrillation with rapid ventricular response Abnormal ECG When compared with ECG of 25-JUL-2019 14:23, Atrial fibrillation has replaced Sinus rhythm Vent. rate has increased BY 58 BPM Confirmed by ANUJ CHINO DO ([id number]) on 01/29/2021 8:13:19 PM Electronically Signed By: ANUJ CHINO DO 01/29/212012 PATIENT NAME: JOSE CARLOS ABREU Electrocardiogram DATE OF : 40 PHYSICIAN: ANUJ CHINO DO REPORT #: [id number] REPORT IS CONFIDENTIAL AND NOT TO BE RELEASED WITHOUT AUTHORIZATION
--- NOTE | 2021-01-29 21:04 | NUR ---
IN TO DO ASSESSMENT. HR REMAINS ABOVE 100. DILT GTT TITRATED UP TO 10MG/HR. pt PLEASANT DID NOT RESPOND TO QUESTIONS WITH MORE THAN YES OR NO. DID NOT GIVE DATE OF . SZYMANSKI CARE DONE. ASSESSMENT DONE. pt REPOSITIONED TO RIGHT SIDE. BiPAP OFF. DENTURE CARE DONE. pt TOOK MEDICATION SITTING AT 90 DEGREES, DID COUGH AFTER SWALLOWING. pt ON 2L NC. CALL LIGHT WITHIN REACH.
--- NOTE | 2021-01-29 21:52 | NUR ---
GTT TITRATED TO 15MG/HR. pt SNORING, RESPIRATIONS REGULAR AND UNLABORED. HR TRENDING DOWN BUT REMAINS 120'S.
--- NOTE | 2021-01-29 22:47 | NUR ---
ROUNDED ON pt. RESTING IN BED WITH EYES CLOSED, RESPIRATIONS REGULAR AND UNLABORED. CALL LIGHT WITHIN REACH.
--- NOTE | 2021-01-29 23:12 | NUR ---
IV BEEPING. ERROR RESOLVED. pt LAYING AWAKE. RESPOSITIONED SELF. NO REQUESTS AT THIS TIME. CALL LIGHT WITHIN REACH.
--- NOTE | 2021-01-30 00:34 | NUR ---
GTT TITRATED TO 10MG/HR pt HR IS TRENDING BELOW 100 AND HAVING PAUSES.
--- NOTE | 2021-01-30 01:12 | NUR ---
pt HR REMAINS BELOW 100, GTT TITRATED TO 5MG/HR. pt SNORING. CALL LIGHT WITHIN REACH.
--- NOTE | 2021-01-30 02:00 | NUR ---
pt HR REACHING 140 AT TIMES, TREND ABOVE 100. GTT INCREASED TO 10MG/HR.
--- NOTE | 2021-01-30 04:00 | NUR ---
IN TO DO ASSESSMENT. pt RESTING IN BED. DENIES PAIN OR SOB. COUGH, NONPRODUCTIVE UNABLE TO PROVIDE A SAMPLE AT THIS TIME. REPOSITIONED. CALL LIGHT WITHIN REACH.
--- NOTE | 2021-01-30 05:30 | NUR ---
IN ROOM TO DRAW MORNING LABS AND GIVE PATIENT HER MORNING MED, SEE EMAR. BLOOD DRAWN FROM LEFT ARM AND SENT TO LAB. PATIENT DENIES OTHER NEEDS. CALL LIGHT IN REACH.
--- NOTE | 2021-01-30 05:38 | NUR ---
GTT KVO, NEW GTT HUNG. pt RESTING IN BED, NO REQUESTS AT THIS TIME. CALL LIGHT WITHIN REACH.
--- NOTE | 2021-01-30 07:30 | NUR ---
REPORT RECIEVED. PATIENT IS RESTFUL IN BED. REMAINS ON O2 VIA NC.
--- NOTE | 2021-01-30 07:55 | NUR ---
Spoke with Summer from [facility] for assessment as pt is not able to answer questions. She states pt has resided at [facility] for several years due to her dementia. Pt. spouse recently . Pt has STM and repeatedly asks the same questions over and over. Summer states even with dementia, pt is able to transfer self to wc, dress upper body, toilet self, and feed self once meal is prepared. Pt is able to converse and read. Pt uses a wc. Pt may return to [facility] when cleared medically and per Summer, pt does not need to be at baseline. Pt's step son, Neil,is pts POBrandie and daughter Dunia is listed a contact. Neil [phone]
--- NOTE | 2021-01-30 08:20 | NUR ---
ASSESSMENT DONE. IS ABLE TO ANSWERE SOME QUESTIONS. OOB TO CHAIR WITH ASSIST. NO SHORTNESS OF BREATH WITH EXERTION NOTED. CARDIZEM GTT AT 10 MG/HR DECREASED TO 3 MG/HR > 2 SECOND PAUSE HAVE BEEN NOTED. SPEECH THERAPY HERE FOR SWALLOW EVALUATION. BED LINENS CHANGED. SZYMANSKI CATH PATENT.
--- NOTE | 2021-01-30 09:30 | NUR ---
PATIENT REMAINS IN CHAIR. REPORT TO Pawan MOJICA RN WHO WILL TAKE OVER NURSING CARE,
--- NOTE | 2021-01-30 10:00 | NUR ---
TOOK OVER CARE FOR THIS PT AT THIS TIME FROM [place]. CARDIAZEM DRIP AT THIS TIME IS D/C PO CARDIAZEM GIVEN. HR <110, BP'S SOFT AND LOW BUT WITH GOOD MAP'S. WILL CONTINUE TO MONITOR.
--- NOTE | 2021-01-30 12:00 | NUR ---
PT IS DOING WELL WITH PUREED FOOD AND LIGHTLY THICKEND LIQUIDS SO FAR. BP LOW BUT MAP IS WDL OVERALL. URINE OUTPUT IS ADEQUATE SO FAR. O2 NEEDS STABLE. UPPER LOBES HAVE EXPIRATOR. WHEEZING PRESENT, LOWER LOBES CLEAR/ DIMINISHED.
--- NOTE | 2021-01-30 14:10 | NUR ---
THIS RN IN TO CHECK ON PT DUE TO IV PUMP ALARMING. PT AWAKE AND ALERT LAYING IN BED, IV SITE WNL, IV FLUIDS RESTARTED AT ORDERED RATE. BLOOD SUGAR CHECKED AT THIS TIME AND WAS 146. PT PROVIDED WITH THICKENED ICE WATER PER HER REQUEST. PT REPORTS NO FURTHER NEEDS AT THIS TIME WHEN ASKED, WILL CONTINUE PLAN OF CARE. CALL LIGHT IN REACH, BED IN LOWEST POSITION, IVF INFUSING ORDERED.
--- NOTE | 2021-01-30 14:25 | NUR ---
BP 90/74 (81), HR IN THE 80'S TO LOW 90'S. MD CHINO WAS CALLED ABOUT GIVING 1400 DOSE OF DILTIAZEM. RECEIVED ORDERS TO GIVE IT. WILL CONTINUE TO MONITOR.
--- NOTE | 2021-01-30 14:47 | NUR ---
PT AT THIS TIME IS ON ROOM AIR. WILL CONTINUE TO MONITOR.
--- NOTE | 2021-01-30 15:21 | NUR ---
O2 AT 1 LITER APPLIED O2 SATS 88-92. PATIENT STATES SHE FEELS SHORT OF BREATH.
--- NOTE | 2021-01-30 17:00 | NUR ---
LOBES AT THIS TIME ARE CLEAR BUT DIMINISHED IN THE BASES. PT AFTER A ROOM AIR TRIAL WHICH WAS NOT SUCCESSFULL REMAINS ON 2L O2 NC. OTHERWISE NO NEW CONCERNS WERE NOTED. BP'S ARE STILL LOW WITH THE MAP BEING WDL SO FAR. URINE OUTPUT IS STILL ADEQUATE.
--- NOTE | 2021-01-30 18:15 | NUR ---
REFUSING DINER. RESTING WITH BIPAP ON. NO FUTHER CHANGES.
--- NOTE | 2021-01-30 19:48 | NUR ---
RECEIVED REPORT FROM [employer]SSCFT RNS. pt RESTING IN BED. NO REQUESTS AT THIS TIME. DENIES PAIN. CALL LIGHT WITHIN REACH.
--- NOTE | 2021-01-30 20:10 | NUR ---
SPOKE WITH DR CHINO, NEW ORDERS TO CHANGE BLOOD SUGAR CHECKS TO WITH MEALS AND AT BED TIMES. ORDER CHANGED.
--- NOTE | 2021-01-30 20:42 | NUR ---
IN TO DO ASSESSMENT. pt SWALLOWED MEDICATIONS WITH SLIGHTLY THICKENED FLUID, NO COUGHING NOTED, SITTING STRAIGHT UP IN BED. ASSESSMENT DONE. pt PLEASANT. ABLE TO GIVE YEAR OF BUT NOT MONTH OR DAY. STATED SHE WAS "IN [place] [facility]" PM CARES DONE. SZYMANSKI CARE DONE. pt REPOSITIONED. NO FURTHER REQUESTS AT THIS TIME. CALL LIGHT WITHIN REACH.
--- NOTE | 2021-01-30 22:10 | NUR ---
ROUNDED ON pt. RESTING IN BED AWAKE. NO REQUESTS AT THIS TIME. CALL LIGHT WITHIN REACH.
--- NOTE | 2021-01-30 22:50 | NUR ---
CHECKED ON PATIENT. SHE IS AWAKE AND STATES "CAN YOU HELP ME, I LOST MY RING IN THE BED?" PATIENT INSISTS SHE HAD 2 RINGS ON HER RIGHT HAND DIGITS, NOTICED ONE RING TO HER RIGHT HAND AND 2 RINGS TO HER LEFT HAND DIGITS. ASKED PATIENT ABOUT THIS SHE SAYS SHE "HAS TWO ON BOTH OF THEM" PATIENT CONCERNED SHE LOST RING IN BED SOMEWHERE. THIS RN LOOKED IN BED AND TURNED PATIENT BUT UNABLE TO LACATE THROUGHOUT LINENS, UNABLE TO LOCATE ON FLOOR OR BEDISED TABLE. ALSO TITRATED O2 TO 3 LITERS VIA NC PATIENT'S SATS WERE DIPPING INTO HIGH 80'S ON 2 LITERS INFORMED KENIA ARRIOLA.
--- NOTE | 2021-01-30 23:59 | NUR ---
IN TO DO ASSESSMENT. pt VOICED CONCERN ABOUT HER IV NOT BEING "HOOKED UP" EDUCATED ON IV FLUIDS, pt VERBALIZED UNDERSTANDING. ASSISTED TO REPOSITION. LUNGS NOW HAVE CRACKLES THROUGHOUT. BREATHING NON LABORED. NO REQUESTS AT THIS TIME. CALL LIGHT WITHIN REACH.
--- NOTE | 2021-01-31 02:20 | NUR ---
IN TO GIVE MEDICATION. pt WOKE WITH VOICE. WHILE SLEEPING HR RANGED FROM 70'S TO 140'S. ABOVE 120'S NOT SUSTAINED. pt DENIED NEEDS AT THIS TIME. REPOSITIONED. CALL LIGHT WITHIN REACH.
--- NOTE | 2021-01-31 04:20 | NUR ---
ROUNDED ON pt. RESTING IN BED WITH EYES CLOSED, RESPIRATIONS REGULAR AND UNLABORED. CALL LIGHT WITHIN REACH.
--- NOTE | 2021-01-31 06:14 | NUR ---
IN TO DO ASSESSMENT AND GIVE MED. pt AWAKE, WAVED TO COME IN. REQUESTED TO GET UP. ABLE TO MOVE LEGS TO THE SIDE OF THE BED. 2PA TO SIT ON THE SIDE OF THE BED. REPORTED FEELING LIGHTHEADED AT FIRST. ATTEMPTED TO STAND WAS TOO WEAK AND SAT BACK IN BED. SECOND ATTEMPT MAX ASSIST TO CHAIR. ASSESSMENT DONE. pt IS CONFUSED, REPEATING "WHERE AM I" AND "HOW LONG HAVE I BEEN HERE" pt IS ORIENTED TO VERY LITTLE, DID REMEMBER NAME OF LATE . AFTER SETTLING IN CHAIR pt CALMED "IT FEELS GOOD TO SIT UP, IT'S BEEN SO LONG." WATCHING TV WITH CALL LIGHT WITHIN REACH. LABS DRAWN, MEDICATION GIVEN (SEE MAR).
--- NOTE | 2021-01-31 07:30 | NUR ---
PATIENT SHIFT REPORT RECIEVED FROM HONING MACHINE SET UP OPERATOR TOOL RN. PATIENT RESTING IN THE CHAIR AT THIS TIME. PER REPROT PATIENT IS CONFUSED BASELINE. PATIENT HAS CALL LIGHT AND IS ABLE TO UTALIZE IT WITH NO ISSUES. WILL CLOSELY MONITOR AND REORIENT APPROPRIATE. PATIENT IS ON 3L NC. WILL CONTINUE TO CLOSELY MONITOR.
--- NOTE | 2021-01-31 08:54 | NUR ---
PATIENT ASSESSMENT COMPLETED. PATIENT RESTING IN THE CHAIR AT THIS TIME. PATIENT IS VERY WEAK AND HAS A WEAK COUGH. PATIENT IS ON 3L NC. PATIENT REORIENTED MULTIPLE TIMES THIS AM. PATIENT WAS WORRIED ABOUT WHERE SHE WAS AND WHY. AFTER THIS RN WAS IN THE ROOM WITH PATIENT FOR APPROX AN HOUR PATIENT WAS MORE RELAXED AND REMEMBERED WHERE SHE WAS. PATIENT ABX INFUSING. ASSISTED PATIENT WITH HER MEAL. PATIENT ONLY ATE ABOUT 25% OF HER OATMEAL. PATIENT AGREEABLE TO TRYING AN ENSURE. PATIENTS BREATH SOUNDS CLEAR AND DIMINISHED. BOWEL TONES HYPOACTIVE. PATIENT IS VERY PLEASANT. PATIENT TOOK MEDICATIONS WITH NO ISSUES. WILL CONTINUE TO CLOSELY MONITOR.
--- NOTE | 2021-01-31 09:47 | NUR ---
THIS RN IN TO DISCONNECT PATIENT FROM ABX THAT ARE COMPLETED AND GIVE AN ADDITIONAL DOSE OF CARDIZEM FOR A TOTAL OF 30MG. PATIENTS VITALS STABLE. CHOCOLATE ENSURE PROVIDED AT THIS TIME. PATIENT IS RESTING IN THE CHAIR AND DENIES ANY OTHER NEEDS AT THIS TIME. WILL CONTINUE TO CLOSELY MONITOR.
--- NOTE | 2021-01-31 11:50 | NUR ---
MD CHINO IN TO SEE PATIENT. PATIENT RESTING IN THE CHAIR. UPDATED MD WITH CURRENT PATIENT STATUS. PLAN OF CARE DISCUSED WITH PATIENT. PATIENT DENIES ANY NEEDS AT THIS TIME. WILL CONTINUE TO CLOSELY MONITOR.
--- NOTE | 2021-01-31 13:00 | NUR ---
REPOSITIONED PATIENT IN THE CHAIR WITH PILLOW SUPPORT. PATIENT DENIES WANTING TO GET BACK TO BED AT THIS TIME. LUNCH AT THE BEDSIDE AND PATIENT REFUSED. PATIENT REQUESTING A CHOCOLATE ENSURE INSTEAD. PROVIDED PATIENBT WITH ENSURE AND PATIENT WORKING ON IT AT THIS TIME. MEDICATIONS GIVEN. PATIENT NOTED TO HAVE A VERY WEAK COUGH. PATIENT REMAINS ON 3L NC. PATIENT DENIES SOB. WILL CONTINUE TO CLOSELY MONITOR.
--- NOTE | 2021-01-31 13:00 | NUR ---
Received update from Rn. Pt feeling somewhat better, remains on 3l 02. Hr Afib and uncontrolled, cont. to adjust meds. Passed on update to Summer at [facility].
--- NOTE | 2021-01-31 13:55 | NUR ---
PATIENT ASSISTED BACK TO BED AND IS A 2 PERSON ASSIST. PATIENT NOW RESTING IN BED WITH PILLOW SUPPORT. LAB HERE TO DO BLOOD CULTURES. ABX STARTED. PATIENT PLACED ON 4L NC AFTER TRANSFERING D/T DECREASED SPO2. WILL CONTINUE TO CLOSELY MONITOR.
--- NOTE | 2021-01-31 14:45 | NUR ---
verified cardizem dose with md lam. per md only give a total of 45mg of cardizem. patient is resting in bed at this time. will be in to give medication.
--- NOTE | 2021-01-31 15:30 | NUR ---
THIS RN IN TO SEE PATIENT. PATIENT RESTING IN BED AT THIS TIME. VITALS DONE. PATIENT DENIES WANTING ANY DINNER AND REQUESTS ANOTHER CHOCOLATE SHAKE. NO OTHER NEEDS AT THIS TIME. WILL CONTINUE TO CLOSELY MONITOR.
--- NOTE | 2021-01-31 16:00 | NUR ---
MD CHINO IS AWARE OF LOW URINE OUTPUT. PER PATIENTS WEIGHT PATIENT NEEDS APPROX 26MLS/HR AND PATIENT HAS HAD ABOUT 40MLS EVERY 2 HOURS. NO NEW ORDERS. WILL CONTINUE TO CLOSELY MONITOR. PATIENT RESTING IN BED AT THIS TIME.
--- NOTE | 2021-01-31 18:25 | NUR ---
PATIENTS HR IS BETTER CONTROLLED THIS EVENING. WILL MONITOR HR AND BLOOD PRESSURE FOR EFFECTIVENESS OF MEDICATION CHANGES. PATIENT COMPLAINED OF A HEADACHE THIS EVENING. PRN TYLENOL GIVEN. PATIENT HAS DRANK ABOUT 75% OF ENSURE SHAKES AT EVERY MEAL TODAY. PATIENT HAS SHAKE AT THE BEDSIDE. PATIENTS URINE OUTPUT REMAINS ABOUT THE SAME THROUGHTOUT THE DAY, MD CHINO AWARE. IF IT DROPS DOWN MORE WILL ALERT MD CHINO. URINE IS NOT CONCENTRATED IN APPEARANCE. NO OTHER NEEDS AT THIS TIME. WILL CONTINUE TO CLOSELY MONITOR.
--- NOTE | 2021-01-31 19:30 | NUR ---
SHIFT REPORT RECIEVED. PATIENT RESTING IN BED. CALL LIGHT IN REACH. VS STABLE. HR 70-90'S.
--- NOTE | 2021-01-31 20:23 | NUR ---
DR CHINO DOING ROUNDS IN UNIT. ORDERED THAT CARDIZEM DOSE BE DECREASED FROM 45MG Q6 TO 30MG Q6. ORDER CHANGED.
--- NOTE | 2021-01-31 23:30 | NUR ---
PATIENT DESAT TO 86%. STAFF ENTERED ROOM, PATIENT AWAKE. NC NOT IN PROPER PLACE. ONCE ADJUSTED OS SATS IMPROVED. PATIENT DENIED ANY NEEDS. REPORTS BEING COMOFRTABLE AND SLEEPING OFF AND ON. HR 60'S, AFIB. BP WNL.
--- NOTE | 2021-02-01 02:53 | NUR ---
patient sleeping soundly. HR VARIABLE 70-90'S. SCHEDULED CARDIZEM PROVIDED. HOB ELEVATED AND PATIENT INSTRUCTED TO TUCK HER CHIN WHEN SHE SWALLOWS. PATIENT COUGHS SOME WITH MARKETING ASSISTANT RETAIL DIVISION. PATIENT REPORTS BEING WARM AND COMFORTABLE. TOLERATING 4L NC. LEFT HOB AT 30 DEGREES. CALL LIGHT IN REACH.
--- NOTE | 2021-02-01 04:30 | NUR ---
PATIENT RESTING IN BED. NC REPOSITIONED FOR BETTER OXYGEN SUPPLY. PATIENT IS ALERT, ORIENTED TO SELF AND IN GOOD SPIRITS. DENIES ANY NEEDS OR CONCERNS. LUNG SOUNDS ARE CLEAR IN GAVINO UPPER LOBES, DIM IN THE BASES. PATIENT HAS WEAK COUGH. VS STABLE.
--- NOTE | 2021-02-01 06:16 | NUR ---
PATIENT RESTING IN BED. IS FORGETFUL BUT PLESANT. LABS DRAWN FROM IV SITE IN LEFT WRIST. PATIENT ASSISTED WITH 2 PEOPLE TO RECLINER. DESAT TO 86% ON ROOM AIR. 4L NC IN PLACE. VS STABLE. SZYMANSKI EMPTIED. MINIMAL OUTPUT. NOTIFIED MD. PATIENT DENIED ANY NEEDS. CALL LIGHT IN REACH.
--- NOTE | 2021-02-01 07:30 | NUR ---
PATIENT RESTING IN THE CHAIR AT THIS TIME. REPORT RECIEVED FROM PARTNER MARKETING MANAGER RN. PATIENT REMAINS ON 4L NC. NO CPAP OVER NIGHT. CALL LIGHT IN REACH. WILL CONTINUE TO CLOSELY MONITOR.
--- NOTE | 2021-02-01 09:59 | NUR ---
MD CHINO IN TO SEE PATIENT. REVIEWED PLAN OF CARE. UPDATED ABOUT PATIENTS OXYGEN AMOUNT INCREASING THIS AM. PATIENT WORE CPAP THIS AM FOR APPROX 1.5HRS AND TOLERATED WELL AT 4L. PATIENT NOW ON 5L NC. PATIENT ALSO NOTED TO HAVE SOME BLOOD IN URINE CATHETER. WILL ORDER CHEST XRAY AND LASIX PER MD CHINO. ORDERS PLACED. RT IN TO SEE PATIENT. WILL CONTINUE TO CLOSELY MONTIOR.
--- NOTE | 2021-02-01 11:19 | NUR ---
PATIENT STAYED ON CPAP FOR APPROX 1 HOUR AT 4L. PATIENT OF OF MACHINE AND BACK ON NC AT 6L AT THIS TIME. PATIENT STATES "THAT THING DOES HELP". PATIENT CATHETER IS NOW DRAINING YELLOW URINE AND APPEARS TO HAVE INCRTEASED URINE OUTPUT AFTER LASIX ADMINISTRATION. WILL CONTINUE TO CLOSELY MONITOR.
--- NOTE | 2021-02-01 13:26 | NUR ---
PATIENT SITTING UP IN THE CHAIR. REPOSITIONED FOR COMFORT. PILLOWS REPOSITIONED. PATIENTS CATHETER EMPTIED FOR 400MLS AT THIS TIME. PATIENT ATE ABOUT 50% OF HER ICECREAM. MEDICATIONS GIVEN. RT IN TO PLACE HUMIDIFICATION ON CANNULA FOR OXYGEN. NO OTHER NEEDS AT THIS TIME. WILL CONTINUE TO CLOSELY MONITOR.
--- NOTE | 2021-02-01 15:18 | NUR ---
PATIENT RESTING UP IN THE CHAIR AT THIS TIME. CATHETER IN PLACE AT THIS TIME. PATIENT STILL HAVING INCREASED URINE OUTPUT WITH LASIX FROM THIS AM. PATIENT DENIES ANY NEEDS AT THIS TIME. DINNER ORDERED. WILL CONTINUE TO CLOSELY MONITOR.
--- NOTE | 2021-02-01 16:21 | NUR ---
NO CHANGES AT THIS TIME FOR DISCHARGE. PLAN IS STILL FOR [facility] FOR DISCHARGE.
--- NOTE | 2021-02-01 16:31 | NUR ---
THIS RN AND MEDHAT AMAYA IN TO ASSIST PATIENT BACK TO BED. PATIENT IS A 2 PERSON ASSIST. PATIENTS ATTENDS NOTED TO BE SOAKED WITH URINE WITH TRANSFER. ATTENDS REMOVED AND PARTIAL BED BATH GIVEN. NEW LINEN ON BED. NEW GOWN PLACED. PATIENT TOELRATED WELL. VITALS DONE. PATIENT REPOSITIONED IN BED ON HER SIDE AT THIS TIME. PATIENT STATES "IM GOING TO TAKE A NAP". PATIENT HAS REMAINED PLEASANTLY CONFUSED MPOST OF THE DAY AND OFTEN ASKS "WHERE AM I, HOW LONG HAVE I BEEN HERE, AND WHO ARE YOU". REORIENTED PATIENT APPROPRIATE. NO OTHER NEEDS AT THIS TIME. WILL CONTINUE TO CLOSELY MONITOR.
--- NOTE | 2021-02-01 18:00 | NUR ---
SPOKE WITH MD CAPPS. PER MD LEAVE SZYMANSKI CATHETER IN TONIGHT AND WILL REASSESS TOMORROW. PATIENT IS STILL PUTTING OUT LARGE QUANTITIES OF URINE THROUH THE DAY WITH LASIX ADMINISTRATION.
--- NOTE | 2021-02-01 18:30 | NUR ---
THIS RN GAVE REPORT TO VARINDER ARRIOLA. THIS RN AND JOSELYN MELÉNDEZ MOVED PATIENT FROM 130 TO ROOM 11 VIA BED. PATIENT TOLERATED WELL. PATIENT RESTING IN BED AND ORIENTED TO NEW ROOM. VARINDER IN AT THE BEDSIDE ON ARRIVAL. ALL BELONGINGS SENT WITH PATIENT. ALL QUESTIONS ANSWERED. NO OTHER NEEDS AT THIS TIME. WILL CONTINUE TO CLOSELY MONITOR.
--- NOTE | 2021-02-01 20:32 | NUR ---
in bed, hob elevated, on O2. lungs with crackles insp/t/o. 2sl patent. f/c patent draining light yellow urine. coop. on thickened liquids, aspirtation and fall precautions in place. airborne isolation precautions.
--- NOTE | 2021-02-02 00:32 | NUR ---
RESATING, EYES CLOSED, O2 IN PLACE, NO DISTRESS, HOB ELEVATED, CALL LIGHT AND THICKENED FLUIDS AT BEDSIDE
--- NOTE | 2021-02-02 01:44 | NUR ---
turned and repositioned, tele#[address] afib, O2 6LNC bleeding into CPAP. coop. f/c patent. call light at hands reach
--- NOTE | 2021-02-02 04:21 | NUR ---
Pt has slept, O2 6LNC, used CPAP w bleeding in 6LO2. lungs dim at bases, ocassional cough. pleasantly confused. turned and respositoned, cooperative. 2sl patent. f/c not chronic, draining clear yellow urine. pt on pureed diet with thickened liquids, ocassional cough after drinking noted. hob elevated, aspiration and fall precautions in place, 2-3PA. Pt continues on airborne isolation precautions.
--- NOTE | 2021-02-02 05:38 | NUR ---
back on O2 6L NC, CPAP off. turned and repositioned. smear of bm noted, f/c patent. moist non productive cough present after taking sips of thickened fluids. lungs no changes from earlier assessment pleasant, continues to repeat the same questions over and over, answered to her satisfaction. call light at hands reach
--- NOTE | 2021-02-02 07:22 | NUR ---
in to assist pt with turn to the left side, pillow on back, no further needs
--- NOTE | 2021-02-02 07:30 | NUR ---
this rn received report from marcellus bustillo. pt appears to be resting at this time with respirations noted.
--- NOTE | 2021-02-02 07:30 | NUR ---
patient got up to the chair with this energy sales broker. warm washcloth offered. breakfast in room, patient eating it. linens changed. water refreshed. call light within reach. no further needs at this time.
--- NOTE | 2021-02-02 08:20 | NUR ---
this rn in pts room to give pt her morning meds and do morning assessment. pt sitting up in chair and states that she is doing well. pt on 7l nc. pt does appear to have a cough afte swallowing and is able to cough but the cough appears to be a bit weak.
--- NOTE | 2021-02-02 10:00 | NUR ---
this rn back in pts room to manager change pts antibiotics at this time. pt back to bed with karin morel. pt tolerating well and states that she feels much better.
--- NOTE | 2021-02-02 11:15 | NUR ---
this rn in pts room to trun of pts iv antibiotics at this time. pt desating to 85%. this rn encouraged pt to take deep breaths and cough. pt able to have aporductive cough and move a plug in the lung.
--- NOTE | 2021-02-02 12:40 | NUR ---
THIS RN IN PTS ROOM TO START AN ANTIBIOTIC ON PT. PT SITTING UP IN BED TO HAVE LUNCH. PT ORIENTED TO PLACE AND HERSELF AT THIS TIME.
--- NOTE | 2021-02-02 14:45 | NUR ---
THIS RN IN PTS ROOM TO GIVE PT HER MEDS. PT IN BED AND IS ASKING FOR INFORMATION, THIS RN ASKED WHAT INOFRMATION SHE NEEDED. PT STATED SHE WANTED TO KNOW WHAT DAY IT WAS, WHAT THE YEAR WAS, WHERE SHE WAS AND WHY SHE WAS HERE. PT THEN PROCEEDED TO ASK THESE QUESTIONS ABOUT EVERY 30 SECONDS TO A MINUTE APART. THIS RN REASSURED PT AND ANSWERED QUESTIONS THE SAME EACH TIME TO NOT CONFUSE PT MORE. PT EVENTUALLY WAS SATIDIFIED WITH ANSWERS. THIS RN REPOSITIONED PT TO A MORE COMFORTABLE POSTION FOR HER.
--- NOTE | 2021-02-02 17:00 | NUR ---
PT UNABLE TO SWALLOW POTASSIUM PILLS. PT COUGHED UP. ASPIRATION RISK.
--- NOTE | 2021-02-02 21:29 | NUR ---
PT ON 4LNC WHEN I WENT INTO THE ROOM SATS WERE 91%. PT GOT CARDIZEM, METROPOLO AND MELATONIN WITH SMALL SIPS, WAS UNABLE TO SWALLOW POTASSIUM AND SENNA TABS, STARTED COUGHING AND SATS DIPPED TO 70%, O2 WAS INCREASED TO 5 W SMALL CHANGES UP TO 72%. O2 AGAIN WAS INCREAED TO 6LNC, SATS UP TO 78%. CALLED FOR ANOTHER NURSE AND PRONING POSITION L SIDE USED. O2 WAS INCREAED TO 15L WITH SATS ONLY GOING UP TO 79% SUSTAINED, CPAP WITH BLEEIN IN O2 AT 15L WAS APPLIED, SATS WENT UP TO 81%. RT CALLED. PULSE WAS VERY ERRATIC DURING THIS TIME. TELE#2 SHOWED AN AFIB RHYTHM BETWEEN 40-146. NON SUSTAINED, IRREGULAR, DENIES CP. PULSE STAYED STABLE AT THIS TIME AT 62 AND SATS WERE 100% ON 15L AND CPAP. DECREAED TO 1OL W CPAP, REPOSITIONED AGAIN. PULSE STAYING AT 63BPM, SATS 96%, WEANED DOWN TO 6L AND DROPPED TO 80%. WILL KEEP ON 10L/CPAP BLEEDING O2 AND WEAN OFF AT NEEDED. PT DENIES CP OR SOB, PROCEDURE EXPLAINED, COOPERATIVE. LUNGS DIM WITH EXP CRACKLES AT BASES AND R UPPER LOBE. MOIST COUGH, PT SWALLOWS SPUTUM. DECLINED MORE SIPS OF FLUIDS. HOB ELEVATED. PROCEDURE EXPLAINED. COOPERATIVE.
--- NOTE | 2021-02-02 23:07 | NUR ---
noted that as per tele cpox sats were 79%. went in to room and pt had taken CPAP mask half way off. machine was not beeping. placed back on, procedure explained, upper and lower dentures remoed as they were sticking out of pts mouth. sats went up to 85%, O2 increaed to 11L w CPAP, RT called, sasts 87-88%, mask repositioned by RT. sats 90% 11L. pt comfortable. Pt repositioned to L side proning positioning cooperative
--- NOTE | 2021-02-03 00:43 | NUR ---
desatting. to mid 80's. went in to room, pt resting peacefully. repositioning, up in bed, and on sitting position. mask respositioned. CPAP with bleeding O2 at 12L in place, up to 13L, no changes, 14L it took a few minutes and went up to 90%. RT called, in room. Dr Harrell notified of O2 need changes, tele afib rhythm. aymptomatic pt, varghese being SOB, alert and oriented to situation. " Oh Ok you have notified me, thank you". will continue to observe pt and keep sats above 90%.
--- NOTE | 2021-02-03 01:21 | NUR ---
hob elevated, cpap with o2 bleeding in at 14L , sats 96%. comfortable. call light at hands reach.
--- NOTE | 2021-02-03 03:19 | NUR ---
RESTING, CPAP W BLEEDING O2 14L IN PLACE, HOB ELEVATED, NO DISTRESS, SATS PER TELECPOX 100%, P107, CALL LIGHT AT BEDSIDE, FALL AND ASPIRATION PRECAUTIONS IN PLAC
--- NOTE | 2021-02-03 05:12 | NUR ---
TURNED AND REPOSITIONED TO L SIDED, WEARING CPAP WITH BLEEDING 6L O2. LUNGS W FINE CRACKLES AT BASES, UPPER LOBED CLEAR. PT TOLERATING IT WELL. WAS INCONTINENT OF LIQUID STOOLS, RED JERMAINE, SKIN CARE, CLEAN ATTEDNS IN PLACE, BED LINEN CHANGED. CALL LIGHT AT HAND REACH. TELE#[address], SAT 96%.AFIB RHYTHM, IRREGULAR HEART RATE. DENIES SOB. STILL ON THICKENED LIQUIDS, PLEASANTLY CONFUSED. FOLLOWS INSTRUCTIONS
--- NOTE | 2021-02-03 06:36 | NUR ---
pt on O2 6LNC, as per tele cpox 88-91%, on sitting up position at this time. took 0700 med with sip of water, tolerated well, after a fe minutes, started coughing for a second, tele/cpox #[address], afib rhythm, irregular, f/c patent, draining qs, dark yellow urine. watchint tv. denies c/o pain
--- NOTE | 2021-02-03 07:30 | NUR ---
this rn received report from marcellus bustillo. pt appears to be resting at this time
--- NOTE | 2021-02-03 08:55 | NUR ---
THIS RN IN PTS ROOM TO DO PTS MORNING ASSESSMENT AND GIVE MORNING MEDS. PT SITTING UP IN BED. THIS RN CRUSHED PTS POTASSIUM DUE TO PTS DIFFCULTY OF SWALLOWING. PT BEGAN COUGING MEDS DUE TO ASPIRATION RISK. THIS RN HAD PT TAKE SMALL SIPS OF WATER AND TUCK HER CHIN TO CHEST, PT ABLE TO GETS MEDS VERT WELL WITH DOING THIS. PT REPORTS NO OTHER PROBLEMS AT THIS TME.
--- NOTE | 2021-02-03 10:00 | NUR ---
THIS RN VERBALLY NOTIFIED THAT PTS HR WAS 100-130'S IN AFIB- MD AWARE. ALL MEDS GIVEN FOR HR.
--- NOTE | 2021-02-03 10:45 | NUR ---
THIS RN IN PTS ROOM TO DRAW PTS BLOOD AND ATTEMPT AT ANOTHER IV. THIS RN ATTEMPTED 3 TIMES, EACH TIME PTS VEIN BLEW. THIS RN TO HAVE VARSHA RN ATTEMPT.
--- NOTE | 2021-02-03 11:24 | NUR ---
this rn in pts room to hang pts adina. pt states taht she is ready for her lunch. this rn set upright to be able to enjoy lunch. pt staes that her ear pain is imporved with tyloneol that this rn provided to her. pt has no other concerns at this time
--- NOTE | 2021-02-03 15:00 | NUR ---
this rn noted that pt was desating to the high 80's at this time. this rn enouraged pt to take deep breaths and cough. pt able to do both. sats come back up.
--- NOTE | 2021-02-03 15:30 | NUR ---
this rn in pts room to increase pts o2 to 6l nc. pt sats still at 87%. this rn had pt use IS and placed pt on oxymask in order to assist pt to be greater than 90%. this is an imporvement from pt desating to 86% pt on 4l oxymask at this time and sitting up.
--- NOTE | 2021-02-03 16:39 | NUR ---
Vancomycin trough level = 11.0 with Vancomycin 750mg iv daily. Increase dose to 1000mg daily per pharmacy
--- NOTE | 2021-02-03 23:21 | NUR ---
PT TOOK OXYMASK OFF, DESSATTED TO 73%, OXYMASK BACK ON, O2 5L OXYMASK. SATS BACK TO 90%, RESPOSITIONED IN BED, HOB ELEVATED. PT INSTRUCTED VERBALLY TO KEEP IT ON, PT DECLINED CPAP EARLIER, TOOK MASK OFF, AND WAS PLACED ON OXYMASK. PT STATED UNDERSTANDING. 'I JUST DO NOT KNOW WHERE JULIANNE, REORIENTED"
--- NOTE | 2021-02-04 00:12 | NUR ---
TOOK PULSE OX OFF, REPOSITIONED, OXYMASK IN PLACE 5LNC
--- NOTE | 2021-02-04 00:31 | NUR ---
TOOK OXYMASK OFF, DESATTED TO 80%, PLACED BACK ON, INMEDIATE WENT UP TO 92%. PT INSTRUCTED VERBALLYTO KEEP OXYMASK IN PLACE. STATED UNDERSTANDING
--- NOTE | 2021-02-04 00:53 | NUR ---
SPOKE TO PRIMARY RN REGAURDING PATIENT'S HR 120-140'S. PATIENT REPORTED TO BE IN BED AT REST. PRIMARY RN ASKED THAT WE CALL MD. SPOKE TO . ORDERS RECEIVED FOR ONE TIME DOSE OF CARDIZEM, SEE EMAR. VERIFIED VIA REPEAT BACK METHOD. DISCUSSED ORDER WITH PRIMARY RNDM.
--- NOTE | 2021-02-04 01:05 | NUR ---
pt hr as per tele over 157, agriculture internship Ronda called Dr Harrell and new order for cardizem 120mg po given. tele#2, afib rhyth, irregular rate med given at this time, procedure explained, hob elevated. pt took med with small sips, tolerated fair, coughs after oral intake. Oxymask at 6L sats 91%. no resp distress turned to her back, compliant, awakes easily. fall and aspiration precautions in place.
--- NOTE | 2021-02-04 01:27 | NUR ---
took oxymask off, desatted to 84%, mask back on, sats 90% now.
--- NOTE | 2021-02-04 01:33 | NUR ---
took oxymask off, desat to 4-85%, back on properly 89-90% sats, pulse 103, irregular, afib
--- NOTE | 2021-02-04 01:39 | NUR ---
took oxymask off, desat to 82%, oxymask back on, sats 89-% 6L, afib rhythm denies CP, pulse irregular 98-143 at this time
--- NOTE | 2021-02-04 01:47 | NUR ---
took oxymask off, desattted at 79%, back on sats up to 90-91%, 6L verballyinstructed to keep it on, stated understanding. repositioned to L side, hob elevated to her comfort
--- NOTE | 2021-02-04 01:52 | NUR ---
took oxymask off, repositioned, declined the cpap. pts Head repositioned , verbally instructed to keep O2 mask on, stated understanding 89% at this time
--- NOTE | 2021-02-04 03:08 | NUR ---
pt medicated with tylenol crushed given in pudin, moist non prod cough soon afterwards, lungs with crckles as before, no changes, on oxymask increased to 10L sats 79%
--- NOTE | 2021-02-04 03:20 | NUR ---
ASSISTED PRIMARY RN DM REPOSITIONED THE PATIENT.
--- NOTE | 2021-02-04 03:24 | NUR ---
Pt repositioned on her abd, O2 increased to 14L sats 89-90%, Oxymask. coop. procedure explained. , received 5mg lopressor IV earlier for heartrate control, tele#2 afib reading with pauses irregular rate 98-146. denies CP. f/c patent, IS at bedside.
--- NOTE | 2021-02-04 04:51 | NUR ---
THIS ANALYTICAL LABORATORY TECHNICIAN AND ZEINAB AQUINO DID HAIR SHAMPOO AND WIPE PATIENT'S FACE, ARM AND LEGS. V/S AND I&O DONE. PATIENT REPOSITIONED FOR HER COMFORT.
--- NOTE | 2021-02-04 05:31 | NUR ---
cbg 130, pt very diaphoretic, increawsed c/o sob, o2 oxymask up to 15L, Lungs coarse, had small amount of thick pink sputum, dry heaving, no emsis repositoned, up sitting position in bed, . changed to non rebreathing mas, Dr Harrell called by [facility] nurse. received 20 mg lasix and cardizem 10mg per heart rate 176. pt very anxioys and restless at that time. was incontinent of very large amount of liquid dark brown stool, skin care. clean attend. pt in sitting positon. non rebreathin mask, at 15L, sats 89%. Resp R22 will be placed in bipap. calmer.. CCU Bharath Bansal in room, as rapid response was called
--- NOTE | 2021-02-04 05:42 | NUR ---
pt up in sitting position in bed nrbmask, sats 91% at 15L, pulse 152, RT in room setting up a BIPAP, when asked pt stated no she still does not feel good
--- NOTE | 2021-02-04 05:47 | NUR ---
on bipap satas 100%, pulse tachy at 152, resp 22, calmer
--- NOTE | 2021-02-04 05:58 | NUR ---
0545 Rapid Response with change to V-60 BiPAP 06/10 Rate 8 Fi2 100%. Patient is havinmg widely variable HR, stated to be in A-fib. Standby for 30 minutes.
--- NOTE | 2021-02-04 06:08 | NUR ---
dr hay in room, pt to be transferred to icu
--- NOTE | 2021-02-04 06:17 | NUR ---
pt calmer, o2 100% bipap, resp 22, pulse still irregular 115 at this time. lungs still with insp crackles but better than earlier. f/c drained 350cc pinkish yellow urine voided after Lasix.
--- NOTE | 2021-02-04 06:19 | NUR ---
thyroid 0700 schedule med held at nursing discretion aspiration precautions
--- NOTE | 2021-02-04 06:30 | NUR ---
pt on bipap, sats 100% pulse as per tele 140, resp 20. calm pale skin, resting, states she feels better, f/c patent.
--- NOTE | 2021-02-04 06:45 | NUR ---
pt transferred to room 126
--- NOTE | 2021-02-04 06:55 | NUR ---
patient arrived from me on bipap, 100% Fi02 and 06/12. patient opens her eyes to pressure and withdraws from pain. hr 130-150, dilt drip started at 5 mg/hr and titrated for theraputic effect. lung sounds are coarse in upper lobes with crackles edward bases. imaging in for chest xray. patient tolerated well. patient titrated to 20 mg/hr dilt and hr 110-130, very irregular. patient is awake. assisted in putting her dentures in for better mask fit. patient does not like the mask because it is tight. encouraged patient to leave in place for now and she agrees. chap stick applied to dry lips.
--- NOTE | 2021-02-04 08:20 | NUR ---
THIS RN IN TO ASSESS PT AND ADMINISTER SCHEDULED MEDICATION. PT LAYING IN BED AWAKE AND ORIENTED TO SELF. PT DENIES PAIN AT THIS TIME WHEN ASKED. PT BIPAP READJUSTED PT STATED IT WAS UNCOMFORTABLE. IV DILTIAZEM INFUSING AT 20MG/HR AT THIS TIME. SCHEDULED MEDICATIONS ADMINISTERED AT THIS TIME, IV MEDICATION INFUSING AT ORDERED RATE. PT THEN ASSESSED, PULSES STRONG, FINE CRACKLES HEARD THROUGHOUT LUNGS AND DIMINISHED IN BASES. PT REPORTS NO FURTHER NEEDS AT THIS TIME WHEN ASKED. CALL LIGHT PLACED BY PT WITHIN REACH. WILL CONTINUE PLAN OF CARE.
--- NOTE | 2021-02-04 08:45 | NUR ---
DENTURES REMVED FOR AIRWAY PROTECTION PLACED ON DENTURE CUP AT BEDSIDE. MASK ADJUSTED TO OPTIMAL FIT. BBS DIMINISHED WITH SCATTERED RALES PROMARILY IN BASES. EPAP INCREASED FOR OXYGENATION FIO2 DECREASED TOLERATED WELL. DELTA PAW CONSTANT.
--- NOTE | 2021-02-04 10:20 | NUR ---
THIS RN IN TO CHECK ON PT AND ADMINISTER SCHEDULED MEDICATIONS. PT LAYING AWAKE ON THE BIPAP AND ON 20MG/HR CARDIZEM. CARDIZEM TITRATED DOWN TO 17 AT THIS TIME HR WAS MAINTAINING BELOW 100 BPM AND HAVING OCCASIONAL PAUSES. SCHEDULED MEDICATIONS ADMINISTERED AT THIS TIME (SEE MAR). PT DENIES HAVING ANY PAIN AT THIS TIME AND DENIES SOB. PT ASSISTED IN REPOSITIONING AT THIS TIME. PT REPORTS NO FURTHER NEEDS WHEN ASKED, WILL CONTINUE PLAN OF CARE. CALL LIGHT IN REACH, BED IN LOWEST POSITION.
--- NOTE | 2021-02-04 11:10 | NUR ---
THIS RN IN TO ADMINISTER SCHEDULED IV ABX. PT LAYING IN BED AWAKE AND ALERT ON THE BIPAP. PT DENIES HAVING ANY PAIN OR SOB AT THIS TIME. IV ABX STARTED AND NOW INFUSING ORDERED. ASSESSMENT COMPLETED AT THIS TIME. PT ASSISTED IN REPOSITIONG IN BED AT THIS TIME. PT REPORTS NO FURTHER NEEDS WHEN ASKED, WILL CONTINUE PLAN OF CARE. CALL LIGHT IN REACH, BED IN LOWEST POSITION, IV ABX INFUSING, IV CARDIZEM STILL INFUSING AT 17MG/HR.
--- NOTE | 2021-02-04 12:45 | NUR ---
THIS RN IN TO ASSESS PT AND ADMINISTER SCHEDULED MEDICATIONS. PT AWAKE IN BED ANSWERING QUESTIONS APPROPRIATELY. PT ORIENTED TO SELF AND DENIES HAVING ANY PAIN OR SHORTNESS OF BREATH. PT STILL ON THE BIPAP AT THIS TIME AT AT 40% FIO2. BIPAP MASK READJUSTED ON PT'S FACE AT THIS TIME. IV VANCOMYCIN NOW INFUSING ORDERED, CARDIZEM DRIP TURNED OFF AT THIS TIME PT'S HR WAS MAINTAINING BELOW 100 AND HAVING OCCASIONAL PAUSES AND BRIEFLY GOING DOWN TO 40-50 BPM. PT ASSISTED IN REPOSITIONING TO HER LEFT SIDE AT THIS TIME. PT REPORTS NO FURTHER NEEDS WHEN ASKED, SZYMANSKI DRAINING, IV ABX INFUSING. CALL LIGHT IN REACH, BED IN LOWEST POSITION, WILL CONTINUE PLAN OF CARE.
--- NOTE | 2021-02-04 13:56 | NUR ---
pt. wanted to sit up in bed, employment director went in and assisted pt. pt kept pulling bipap off. employment director and rn went in and rn put bipap back on. no other needs at this time
--- NOTE | 2021-02-04 14:19 | NUR ---
PATIENT RESTLESS WITH THE BIPAP AND REMOVING MASK. PATIENT ON OXYMASK WITH 5L AND SATS ARE 90-91% PATIENT GIVEN SEVERAL SIPS OF ENSURE AND IS RESTING QUIETLY AT THIS TIME.
--- NOTE | 2021-02-04 16:30 | NUR ---
THIS RN IN TO ASSESS PT AND ADMINISTER SCHEDULED IV ABX. PT LAYING IN BED ON OXYMASK AT 5LPM, SPO2 AT 90%. SCHEDULED IV ABX STARTED ORDERED, CARDIZEM DRIP STARTED BACK UP AT THIS TIME DUE TO HR MAINTAINING OVER 110 BPM. CARDIZEM STARTED AT 5MG/HR (SEE SEP). RT IN ROOM TO CHANGE PT OVER TO HIGH FLOW NC, PT PLACED ON 7L INITIALLY. PT ASSESSED AND VITALS TAKEN. DURING THIS TIME PT CARDIZEM WAS INCREASED TO 7.5 MG/HR HR WAS STILL OVER 110. PT REPOSITIONED IN BED AT THIS TIME. PT NOW LAYING IN BED ON 9L O2 HIGHFLOW NC, CARDIZEM INFUSING AT 7.5 MG/HR, IV ABX COMPLETED DURING THIS TIME. PT REPORTS NO FURTHER NEEDS AT THIS TIME, WILL CONTINUE PLAN OF CARE. CALL LIGHT IN REACH, BED IN LOWEST POSITION.
--- NOTE | 2021-02-04 16:46 | NUR ---
NO CHANGES IN DISCHARGE PLAN. [facility] STILL PLANNING ON PATIENT RETURNING AT DISCHARGE.
--- NOTE | 2021-02-04 17:55 | NUR ---
THIS RN IN TO CHECK ON PT. PT AWAKE AND ALERT ON 9L O2 HIGHFLOW NC, SPO2 91%. PT HR NOTED TO INCREASE TO 130-140'S, DILT DRIP INCREASED FROM 7.5MG/HR TO 10MG/HR. PT REPORTS NO FURTHER NEEDS AT THIS TIME AND REPOSITIONED IN THE BED. CALL LIGHT WITHIN REACH, BED IN LOWEST POSITION, WILL CONTINUE PLAN OF CARE.
--- NOTE | 2021-02-04 19:00 | NUR ---
THIS RN IN TO CHECK ON PT. PT LAYING IN BED AWAKE, ON HIGHFLOW NC AT 9L. PT TITRATED UP ON O2 TO 10L TO MAINTAIN SATURATIONS ABOVE 90%. . CARDIZEM DRIP STILL INFUSING AT 10MG/HR. HR RANGING IN THE 90-120'S. PT DENIES ANY PAIN OR SHORTNESS OF BREATH WHEN ASKED. CALL LIGHT WITHIN REACH, BED IN LOWEST POSITION, WILL CONTINUE PLAN OF CARE.
--- NOTE | 2021-02-04 20:15 | NUR ---
SHIFT REPORT RECEIVED FROM ZEINAB TURNER. ASSESSMENT COMPLETED, PT IS ALERT, ORIENTED TO SELF AND KNOWS WE ARE IN [place]. DENIES PAIN. LUNGS HAVE CRACKLES THROUGHOUT, ON 10L HIGH FLOW NC. HR IRREGULAR, CARDIZEM DRIP TITRATED TO 15MG/HR FOR HR 100-120'S. BOWEL TONES ACTIVE. SZYMANSKI PATENT. PT INCONTINENT OF LIQUID STOOL, PERICARE AND CATH CARE PROVIDED. DURING PERICARE AND PT LAYING FLAT, SPO2 DECREASED TO 80%. ENCOURAGED PT TO ALLOW ME TO PLACE HER BACK ON BIPAP, PT BUT REFUSED. INCREASED HIGH FLOW NC TO 15L. IV SITES INTACT AND PATENT. CALL LIGHT WITHIN REACH.
--- NOTE | 2021-02-04 21:25 | NUR ---
IN TO START ANTIBIOTIC INFUSION, ABLE TO TITRATE OXYGEN BACK TO 10L. PT GIVEN SIP OF WATER, COUGHING NOTED AFTER DRINKING. PT DENIES FURTHER NEEDS AT THIS TIME.
--- NOTE | 2021-02-04 22:37 | NUR ---
IN TO REPOSITION PT, BILATERAL HIPS FLOATED ON PILLOWS. CARDIZEM DRIP TITRATED TO 12.5MG/HR FOR HR 80-90'S. HIGH FLOW TITRATED TO 15L DURING REPOSITIONING, ABLE TO TITRATE BACK TO 10L. CALL LIGHT WITHIN REACH.
--- NOTE | 2021-02-05 00:40 | NUR ---
PT RESTING WITH EYES CLOSED, WOKE EASILY WHEN I ENTERED ROOM. ASSESSMENT COMPLETED. LUNGS CONTINUE TO SOUND DIM WITH CRACKLES THROUGHOUT, OXYGEN REMAINS AT 10L PEGGY FLOW NC. CARDIZEM DRIP TITRATED TO 15MG/HR FOR HR 115. SZYMANSKI REMAINS PATENT. PT REPOSITIONED ONTO RIGHT SIDE WITH PILLOW SUPPORT, BLE REMAIN ELEVATED ON PILLOW. PT DENIES NEEDS AT THIS TIME, CALL LIGHT WITHIN REACH.
--- NOTE | 2021-02-05 01:11 | NUR ---
PT DESATURATING TO 80% WHILE ON 10L HIGH FLOW NC. PT CONTINUES TO REFUSE BIPAP, INCREASED HIGH FLOW TO 15L. IT HAS TAKEN ABOUT 20 MINUTES FOR PT TO RECOVER AFTER OXYGEN INCREASE, BUT SPO2 NOW 92%.
--- NOTE | 2021-02-05 02:05 | NUR ---
IN TO GIVE SCHEDULED METOPROLOL. NEW BAG OF CARDIZEM STARTED, TITRATED DRIP TO 17.5MG/HR FOR HR 110-130'S. PT AWOKE WHILE I WAS IN THERE, I OFFERED TO HELP HER REPOSITION, BUT SHE REFUSED AT THIS TIME STATING SHE WAS COMFORTABLE. OXYGEN REMAINS AT 15L HIGH FLOW NC.
--- NOTE | 2021-02-05 02:42 | NUR ---
CARDIZEM DRIP TITRATED TO 20MG/HR FOR HR 100-120'S.
--- NOTE | 2021-02-05 03:10 | NUR ---
SPO2 81% ON 15L HIGH FLOW NC. PT AGREEABLE TO TRYING BIPAP FOR NOW, SETTINGS 12/8 WITH 50% FIO2. SPO2 NOW 93%.
--- NOTE | 2021-02-05 04:30 | NUR ---
PT CALLED AT 0400, TUBE HAD COME OFF OF BIPAP. PLACED PT ON 15L HIGH FLOW NC, BUT SPO2 REMAINED LESS THAN 90%, SWITCHED TO OXYMASK AND NOW SPO2 >90%. IV IN RIGHT WRIST APPEARS INFILTRATED, SWOLLEN AND PAINFUL TO FLUSH. NEW IV STARTED IN LEFT WRIST, BRUISING NOTED AT SITE AFTER INSERTION, BUT FLUSHES WELL AND ISN'T PAINFUL. LUNGS REMAIN DIM WITH CRACKLES THROUGHOUT. CARDIZEM REMAINS AT 20MG/HR, HR VARIABLE BETWEEN 80-120'S. SZYMANSKI REMAINS PATENT. PT DENIES FURTHER REQUESTS, CALL LIGHT WITHIN REACH.
--- NOTE | 2021-02-05 06:13 | NUR ---
PT CONTINUES TO REST IN BED, REPOSITIONED SO BILATERAL HIPS ARE FLOATED. CARDIZEM DRIP CONTINUES AT 20MG/HR. NEW IV SITE CONTINUE TO INFUSE WNL. SZYMANSKI EMPTIED. PT DENIES FURTHER NEEDS, CALL LIGHT WITHIN REACH.
--- NOTE | 2021-02-05 08:17 | NUR ---
IN PATIENT'S ROOM FOR ASSESSMENT, VITALS, AND TECHNOLOGY SALES CONSULTANT. PT VERY CONCERNED ASKING OVER AND OVER, "WHERE AM I? HOW LONG HAVE I BEEN HERE? WHERE IS [place]?" REORIENTED PATIENT MANY TIMES TO ALL OF THESE THINGS. [place] IS HER SPOUSE. PT HAS UNDERLYING DEMENTIA. PATIENT ORIENTED TO SELF ONLY. PT DENIES SHORTNESS OF BREATH. PT ON 15 L OXYMASK UPON ARRIVAL INTO ROOM. ABLE TO WEAN PATIENT DOWN TO 4 L NC. PT ALSO GIVEN AN IS AN ACAPELLA AND HELPED TO USE THESE. BEST EFFORT ON IS WAS 750 ML. CARDIZEM GTT CONTINUES AT 20 MG/HR. IV LOPRESSOR GIVEN PER ORDER, SEE EMAR. HR VARYING FROM 80-120s, WITH SOME PAUSES NOTED. PT IS NPO AT THIS TIME DUE TO ASPIRATION CONCERNS. PT GIVEN SWAB OF WATER TO HELP WITH DRY MOUTH. CHAPSTIX PROVIDED WELL. PT BOOSTED IN BED. LUNGS ARE RELATIVELY CLEAR WITH SOME RHONCHI NOTED IN UPPER LUNG ZONES. ENCOURAGING PATIENT TO COUGH. CONTINUE TO MONITOR.
--- NOTE | 2021-02-05 11:36 | NUR ---
PT LAYING ON LEFT SIDE WITH EYES CLOSED. SATS 87.
--- NOTE | 2021-02-05 12:12 | NUR ---
PT CALLED TO BE REPOSITIONED IN BED. NOTED TO HAVE HAD A LOOSE STTOL IN THE BEDDING. CHANGED BEDDING AND CLEANED UP PT, PT ABLE TO ROLL SIDE TO SIDE UNASSISTED. TURNED PT UP TO 6LNC MOMENTARILY WHILE MOVING SHE DESATED INTO 70'S WITH MOVEMENT. DR CAPPS IN ROOM TO ASSESS PT. ADVANCED DIET SO THAT SHE COULD HAVE SMALL AMT OF FOOD. SWALLOWED SMALL AMTS THICKENED WATER WO DIFFICULTY. REMINDED TO TUCK CHIN. PT FOLLOWED DIRECTIONS. TUCKED IN WITH WARM BLANKET AND RESTING BEFORE LUNCH ARRIVES. EMPTIED SZYMANSKI FOR 175 LIGHT YELLOW URINE.
--- NOTE | 2021-02-05 12:16 | NUR ---
PT ASSISTED TO USE IS AND ACAPPELLA. PT TOLERATED WELL AND DID 5 EACH.
--- NOTE | 2021-02-05 13:35 | NUR ---
ASSISTED PT TO EAT SOME CHICKEN NOODLE SOUP AND APPLESAUCE FOR LUNCH. PT TOELRATED WELL, FOLLOWED DIRECTIONS REGARDING SMALL BITES AND TIPPING HER CHIN DOWN. NO COUGHING NOTED WHILE EATING. SATS REMAINED IN THE LOW 90'S. VANCO AND ORAL MEDICATIONS GIVEN. PT SWALLOWED WO DIFF.
--- NOTE | 2021-02-05 14:00 | NUR ---
No change in dc plan. Pt now in CCU and quite ill. Pt sleeping at every visit. Per staff she is unable to swallow and required a rapid response team on 02/04/21. Per Dr. Harrell she has been in contact with the son.
--- NOTE | 2021-02-05 15:16 | NUR ---
ASSISTED PT USE PHONE TO TALK TO SON MIS. PT TEARFUL AND UPSET THAT SHE DOES NOT REMEMBER ANYTHING. ASKED REPEATEDLY WHERE SHE IS AND HOW LONG, WHY SHE IS HERE. REORIENTED HER EVERYTIME. REASSURED HER THAT SHE IS DOING WELL AND GETTING BETTER. PT BOOSTED IN BED AND ASSISTED TO SIT UP AND SWALLOW TYLENOL FOR HEAD AND EARACHE. SWALLOWED PILLS AND THICKENED WATER WO DIFFICULTY. SATS 88-91 % ON 3.5L NC.
--- NOTE | 2021-02-05 15:36 | NUR ---
TURNED DILT DRIP OFF DUE TO LOW HR PER PARAMETERS. PT RESTING WITH EYES CLOSED BUT OPENS AND RESPONDS APPROP TO QUESTIONS. EMPTIED SZYMANSKI FOR 100. SATS 91 ON 3.5 LNC
--- NOTE | 2021-02-05 17:01 | NUR ---
PT CALLED TO ASK IF SHE NEEDED TO ORDER DINNER OR IF ONE WOULD BE BROUGHT UP. EXPLAINED THAT WE HAD ORDERED DINNER EARLIER TODAY AND IT WOULD BE UP SHORTLY. APPEARS MORE CALM AND ORIENTED THAN BEFORE.
--- NOTE | 2021-02-05 18:22 | NUR ---
PT SITTING IN BED WATCHING TV. SATS 95% ON 3.5LNC. ASSISTED TO USE IS AND ACCAPELLA. PT TOLERATED WELL. EMPTIED SZYMANSKI FOR 75 YELLOW URINE. ATE MOST OF DINNER. DENIES CONCERNS.
--- NOTE | 2021-02-05 20:10 | NUR ---
SHIFT REPORT RECEIVED FROM ZEINAB SULLIVAN. ASSESSMENT COMPLETED. PT IS ORIENTED TO SELF AND KNOWS WE ARE IN [place]. DENIES PAIN. LUNGS HAVE CRACKLES THROUGHOUT, 3.5L NC IN PLACE. HR IRREGULAR, SCHEDULED CARDIZEM GIVEN. PT ABLE TO TAKE PILLS WITH THICKENED LIQUID. BOWEL TONES ACTIVE, DENIES NAUSEA. FOELY PATENT, CATH CARE PROVIDED. LIQUID STOOL NOTED, PERICARE PROVIDED, NEW CHUX IN PLACE. SKIN OTHERWISE GROSSLY INTACT, TRACE EDEMA IN BLE. IV SITES INTACT, PATENT, SALINE LOCKED. PT REPOSITIONED IN BED ONTO RIGHT SIDE WITH PILLOW SUPPORT, BLE ELEVATED ON PILLOWS. PT DENIES FURTHER NEEDS, CALL LIGHT WITHIN REACH. LIGHTS DIMMED PER PT REQUEST.
--- NOTE | 2021-02-05 22:10 | NUR ---
IN TO START ANTIBIOTIC INFUSION. PT WATCHING TV IN BED, STATES SHE'S BEEN ABLE TO SLEEP OFF AND ON. PT DENIES NEED FOR REPOSITIONING AT THIS TIME. SZYMANSKI EMPTIED. PT DENIES REQUESTS, CALL LIGHT WITHIN REACH.
--- NOTE | 2021-02-06 00:16 | NUR ---
ASSESSMENT COMPLETED. PT SLEEPING, WOKE WHILE I WAS IN ROOM. DENIES PAIN, ASSISTED HER TO REPOSITION TO LEFT SIDE WITH PILLOW SUPPORT. LUNGS SOUND CLEAR/DIM WITH FINE CRACKLES IN BASES, REMAINS ON 4L NC. REMAINDER OF ASSESSMENT UNCHANGED. SZYMANSKI EMPTIED, REMAINS PATENT.
--- NOTE | 2021-02-06 01:38 | NUR ---
PT HAD TURNED TO L SIDE AND SATS DEC TO 83-84% 02 TITRATED TO 6L HIGH FLOW. SATS UP TO 94%.
--- NOTE | 2021-02-06 02:16 | NUR ---
IN TO GIVE SCHEDULED MEDS, TOOK WITH THICKENED WATER WITHOUT ISSUE. ASSISTED PT TO REPOSITION ONTO RIGHT SIDE WITH PILLOW SUPPORT. OXYGEN REMAINS AT 6L. SZYMANSKI EMPTIED. PT DENIES FURTHER NEEDS.
--- NOTE | 2021-02-06 04:03 | NUR ---
IN TO START ANTIBIOTIC INFUSION. PT WOKE WHEN I ENTERED ROOM. ASSESSMENT COMPLETED AND UNCHANGED. NO COMPLAINTS. OXYGEN REMAINS AT 6L. REMOVED PILLOW FROM UNDERNEATH PT SO PT NOW POSITIONED SUPINE WITH BLE ELEVATED ON A PILLOW. SZYMANSKI EMPTIED. PT DENIES NEEDS, CALL LIGHT WITHIN REACH.
--- NOTE | 2021-02-06 06:29 | NUR ---
ANTIBIOTIC INFUSION COMPLETED, IV SALINE LOCKED. PT REPOSITIONED, BILATERAL HIPS FLOATED ON PILLOWS. SZYMANSKI EMPTIED. BREAKFAST ORDER RECEIVED AND CALLED TO KITCHEN. PT DENIES FURTHER NEEDS, CALL LIGHT WITHIN REACH.
--- NOTE | 2021-02-06 08:05 | NUR ---
RESPONDED TO PT CALL LIGHT, PT STATED THAT SHE WANTED TO BE REPOSITIONED. THIS RN IN TO REPOSITION PT AND ADMINISTER SCHEDULED MEDICATION. PT LAYING IN BED AWAKE AND ORIENTED TO SELF AND LOCATION. PT DENIES SHORTNESS OF BREATH AT THIS TIME WHEN ASKED AND DENIES HAVING ANY PAIN. PT CURRENTLY ON 7L O2 NC. PT SAT UP AND SCHEDULED MEDICATION ADMINISTERED WITH THICKENED WATER. PT ASSESSMENT COMPLETED, VITALS TAKEN, PT REPORTS NO FURTHER NEEDS AND WAS ASSISTED IN REPOSITIONING ONTO HER RIGHT SIDE. CALL LIGHT IN REACH, BED IN LOWEST POSITION, WILL CONTINUE PLAN OF CARE.
--- NOTE | 2021-02-06 09:00 | NUR ---
PT CALL LIGHT ON. PT REPORTS SHE NEEDS HELP REPOSITIONING. THIS RN TO ROOM. PT UP TO STAND AND PIVOT TO CHAIR, LARGE INCONTINANT SOFT, BROWN STOOL NOTED IN BED. PT REPORTS "THAT'S A SURPRISE." JERMAINE AND CATHETER CARE DONE. DEPENDS IN PLACE. PT UP TO CHAIR EATING BREAKFAST, LIQUIDS THICKENED PER MD ORDER. LINENS CHANGED. AISHAACH THERPIKUMAR CORTES, TO BEDSIDE TO ASSIST PT WITH BREAKFAST. NO ADDITIONAL REQUESTS OR COMPLAINTS. CALL LIGHT WITHIN REACH. PT REMAINS 7L O2 BY NC WITH O2 SATURATION OF 90%.
--- NOTE | 2021-02-06 09:25 | NUR ---
DR. CAPPS IN ROOM TO ASSESS PT AT THIS TIME AND UPDATE ON PLAN OF CARE.
--- NOTE | 2021-02-06 10:31 | NUR ---
THIS RN IN TO ADMINISTER SCHEDULED MEDICATIONS. PT SITTING IN BEDSIDE RECLINER AT THIS TIME AWAKE AND ALERT. BOTH IV'S ON LEFT ARM REMOVED THEY WERE NO LONGER PATENT AND PAINFUL WHEN FLUSHED. BOTH IV CATHETERS INTACT UPON REMOVAL, SITES WNL, GAUZE AND COBAN USED FOR SITES. ZEINAB LEE IN TO PLACED IV ON R FOREARM. 22G, PT TOLERATED INSERTION WELL. SCHEDULED MEDICATIONS ADMINISTERED AT THIS TIME, IV ABX INFUSING ORDERED. PT REPORTS NO FURTHER NEEDS AT THIS TIME, WILL CONTINUE PLAN OF CARE. CALL LIGHT IN REACH.
--- NOTE | 2021-02-06 11:15 | NUR ---
PT SITTING IN RECLINER AWAKE AND ALERT AT THIS TIME. SCHEDULED IV ABX STARTED (SEE MAR). PT UPDATED ON PLAN OF CARE AND PLAN TO TRANSFER TO THE MEDICAL SURGICAL UNIT. PT BELONGINGS GATHERED AT THIS TIME AND PT TRANSFERRED TO ROOM 116 WITH HER BELONGINGS AND ON 5L O2 NC. ZEINAB LATIF IN ROOM 116 TO RECEIVE PT AND CONTINUE PLAN OF CARE.
--- NOTE | 2021-02-06 12:00 | NUR ---
Pt arrives to med surg unit via chair with ZEINAB Sargent. Pt on 5L O2 via NC, tolerating well with SPO2 at 94%. Coarse crackles noted in upper lobes of lungs, able to demonstrate deep breaths and has occasional, nonproductive cough. IV ABX infusing WNL. Lab in room for draw. Lunch ordered for patient. Pt disoriented to time, date, verbalizes she knows she is in the hospital but requires frequent reorientation after the transition to MS floor. Pleasant and follows verbal cues. Oriented to call light system, in reach. Will continue plan of care.
--- NOTE | 2021-02-06 12:30 | NUR ---
IV ABX infusing WNL. Pt transfers to bed with heavy 1PA pivot from chair. Roll changed after incontinent BM with 2PA. Pt resting with no needs at this time, belongings and call light within reach.
--- NOTE | 2021-02-06 12:53 | NUR ---
This RN in room to assist patient with lunch, maintaining aspiration precautions. IV ABX complete, awaiting trough results for next dose of vancomycin. Pt tolerating pureed lunch and thickened liquids well. On 5L O2 with SPO2 at 93% at rest. HR continues to be irregular, pt asymptomatic.
--- NOTE | 2021-02-06 14:30 | NUR ---
Scheduled cardizem administered, VS and I/O's complete, pt continues to be in Afib and dizzy when sitting up. Occupational therapy in room to work with pt at this time.
--- NOTE | 2021-02-06 16:40 | NUR ---
Scheduled medications administered, pt has productive cough, aspiration precautions in place. Assessment complete, pt continues to have coarse crackles in upper lung lobes, diminished in the bases. Pt has call light in reach and has been calling appropriately.
--- NOTE | 2021-02-06 16:55 | NUR ---
No change in plan for dc. Return to [facility] when cleared for dc.
--- NOTE | 2021-02-06 18:28 | NUR ---
PATIENT RESTING IN BED, WOKE TO VOICE. VITALS AND I&OS CHARTED. SZYMANSKI EMPTIED. THICKENED WTAER IN CUP REPLENISHED. FOLAEY EMPTIED, GARBAGE EMPTIED. CALL LIGHT IN REACH, NO OTHER NEEDS AT THIS TIME
--- NOTE | 2021-02-06 22:29 | NUR ---
HOB ELEVATED, AWAKE, PLEASANTLY CONFUSED, ON 5L NC, COOP WITH ASSESSMENT. LUNGS W CRACKLES INSP/EXP T/O AND DIM AT BASES, RECEIVED IV MAG RIDER PER ORDERS, PROCEDURE EXPLAINED, ON THICKENED LIQUIDS, ATTENDS IN PLACE, F/C PATENT, DRAINING QS DRK URINE. REPOSITIONED. BRUISED ARMS FROM PREVIOUS IVS, RED JERMAINE AREA NOTED. BED ALARM ON
--- NOTE | 2021-02-07 00:18 | NUR ---
turned, o2 in place, coop. f/c patent, attends dry, 2nd mag rider started hob elevated, aspiration and fall precautions in place
--- NOTE | 2021-02-07 02:20 | NUR ---
incontinent of semi liquid bm, skin care, barrier cream, clean attends
--- NOTE | 2021-02-07 02:20 | NUR ---
repositioned in bed, aspiration precautions in place. O2 5L NC, tele#[address], afib rhythm, no c/o pain
--- NOTE | 2021-02-07 06:12 | NUR ---
pt continues on airborne isolation, on 5LNC, lungs with crackles bilat, moist productive cough, alert at times, pleasantly confused, echolalia present at times, easily redirectable, turned often. large abd hernia noted R abd, no c/o abd pain. received potassium liquid and 2 mag riders IV, tolerated well, sl patent. f/c patent, draining medium yellow colored urine. f/c care. was incontinent of liquid green/brown bm. red luana area/buttocks area, barrier cream applied. bruising over arms from old iv sited healing. hob elevated, aspiration and fall precautions in place, trace of edema to legs, elevated .Bed weight was 47.9KG. regular bedding and 2 pillows/tele
--- NOTE | 2021-02-07 08:00 | NUR ---
REPORT RECEIVED FROM NIGHT RN AND PT. CARE RESUMED. PT. IS ORIENTED TO ALL BUT DATE. SHE REPORTS BEING VERY TIRED THIS MORNING. ON 5L NC AND O2 SAT IS 91%. LUNGS DIM. IN THE BASES. DEMONSTRATED USE OF I.S. SPEECH THERAPY IS IN THE ROOM. MEDS GIVEN CRUSHED WITH PUDDING. TOLERATED WELL. PT. SZYMANSKI PATENT DRAINING YELLOW CLEAR URINE. IV SITE WNL AND FLUSHES WELL. HR IRREGULAR AND HR FROM 100-150S. INCREASED DOSAGE METOPROLOL AND CARDIZEM PO. WILL CONTINUE TO MONITOR. PT. IS UP IN THE CHAIR AND ENCOURAGED TO USE I.S. LEFT RESTING WITH CALL LIGHT IN REACH AND CURTAIN OPEN.
--- NOTE | 2021-02-07 09:18 | NUR ---
NURSE ADMISNTERED MORNING METOPROLOL AND CARDIZEM. PHARMACY CALLED TO CHANGE NEW ORDERS TO EQUAL A TOTAL OF 25MG METOPROLOL AND 75MG CARDIZEM PER DR NEW ORDERS.
--- NOTE | 2021-02-07 12:13 | NUR ---
MD ORDERED PO POTASSIUM. CANNOT CRUSH. SPOKE WITH PHARMACY AND THEY WILL ORDER LIQUID.
--- NOTE | 2021-02-07 15:51 | NUR ---
PT. USED CALL LIGHT APPROPRIATELY TO ASK TO REPOSITION. SPOT CHECKED O2 SAT AND IT WAS 84% TITRATED O2 FROM 5L NC TO 8L OXYMASK. 02 SAT IMPROVED. PLACED ON TELE PULSE OX. O2 SAT WAS 86% AFTER 10 MIN. TITRATED 02 TO 10L OXYMASK. PATIENT ASKED TO COUGH AND USE I.S. AND POSIITIONED IN HIGH FOWLERS. 02 SAT. INCREASED TO 94%. MD NOTIFIED. WILL CONTINUE TO MONITOR.
--- NOTE | 2021-02-07 18:16 | NUR ---
02 SAT ON MONITOR DECREASED TO 76%. PT. FOUND COUGHING AFTER EATING. PLACED ON 15L OXYMASK AND O2 SAT INCREASED TO 93%. TITRATED TO 10L AND O2 SAT WAS 91%. ATTENDS WET AND PT. WAS CLEANED AND CHANGED. ASSISTED WITH REPOSITIONING WITH PILLOWS AND GIVEN WARM BLANKETS. PT LEFT RESTING WITH CALL LIGHT IN REACH.
--- NOTE | 2021-02-07 19:48 | NUR ---
awake, pleasant, confused to date only, compliant, O2 10L Oxymask, lungs with insp crackles t/o, took med w small amount of pudin and thickened liquids tucked chin down, no cough. tolerated very well. coop with assessment. incontinent of urine, attends changed, red luana/buttocks area. Barrier cream applied at this timne. repositioned. call light and thickened liquids at bedside. bed alarm on. cont on airborne isolation.
--- NOTE | 2021-02-07 21:50 | NUR ---
pt resting, no distress, O2 10LOXymask, sats 91%, tele#[address] afib rhythm, pt awake, watching tv.
--- NOTE | 2021-02-07 23:15 | NUR ---
pt DESATING ON MONITOR, IN TO CHECK ON PT, PT RESTING ON HER BACK, RN FOLLOWED IN, ASSIST PT TO TURN BACK ONTO HER LEFT SIDE, RN CHECKING O2 AMOUNT, THIS PRESCHOOL PROGRAM DIRECTOR BACK TO RM, RAISED HOB, PT IS RESTING
--- NOTE | 2021-02-08 00:13 | NUR ---
RESTING, HOB , ON OXYMASK, TELE#[address],SATS 91%.
--- NOTE | 2021-02-08 00:57 | NUR ---
PT RESPOSITIONED TO r SIDE, ON 12L O2 OXYMASK, DESATTED TO MID 80'S ON 14L, DR PORTILLO HERE ON FLOOR, NEW ORDERS TO PLACE PT ON CPAP OBTAINED. RT RUBY NOTIFIED. TELE#[address], SATS 93%
--- NOTE | 2021-02-08 02:28 | NUR ---
pt awakes easily on 14L Oxymask, took 0200 meds with chin down, inmediate moist cough present, desatted to 79% and inmediate back to 82-85% after coughing out thick yellow oral drainage. repositioned in bed, sats 87 steady, Dr danielle notified, RT notified. pt lungs w/o changes from earlier assessment. thickened liquids. call light at hands reach
--- NOTE | 2021-02-08 02:38 | NUR ---
O2 upto 15L oxymask, sats 88-90%, pt in sitting position in bed. tolerating well, respositioned and attends changed as she was incontinent of urine. red luana and buttocks area. barrier cream to area. tele# [address], afib rhythm, denies c/o CP.
--- NOTE | 2021-02-08 04:00 | NUR ---
placed on bipap earlier, sats 97%, no distress. tele#[address], afib rhythm. irregular hear rate, md aware
--- NOTE | 2021-02-08 05:30 | NUR ---
Pt resting at this time, awakes easily. at begining of shift pt was on 10L oxymask, lungs with crackles t/o. as the shift wore on pt started desatting down to 79% -85% off and on. O2 increaed to 12-14-15L eventually, prone positoning, repositoning, Dr Walker notified and orders for cpap/bipap obtained. Pt placed on bipap at 0330 and has been maintaining sats 95-98%. has kept the mask on too, as pt did tends to take off oxymask off face earlier on shift. comfortable at this time. tele#[address], afib rhythm , receiving cardizem and lopressor. thickened liquid and meds given with small amounts of puding, has tolerated well, aspiration precautions in place. continues to cough and have a moist coug soon after ingesting any po . no emesis this shift. has been turned and repositioned, Incontinent of urine several times, red luana and buttocks area. barrier cream applied, clean attends. fall and aspiratin precautions in place. pt pleasantly confused at times, alert and oriented except to date at others. cooperative. with assessments, no bm this shift.
--- NOTE | 2021-02-08 07:06 | NUR ---
resting, turns self in bed, attends dry
--- NOTE | 2021-02-08 08:00 | NUR ---
REPORT RECEIVED FROM NIGHT RN AND PT. CARE RESUMED. PT. ON BIPAP AND PULLING AT IT YELLING. BIPAP REMOVED FOR PO MEDS AND BREAKFAST. PT PLACED ON 10L HIGH FLOW NC. 02 SAT IS 99%. IV SITE FLUSHES WELL. PT. ORIENTED TO SELF ONLY AND IS ANXIOUS THIS MORNING. REORIENTED AND REASSURED. PT. ASSISTED WITH PIVOTING TO THE CHAIR FOR BREAKFAST. DISCUSSED MORNING MEDS AND SAFETY. PT. LEFT RESTING WITH CALL LIGHT IN REACH.
--- NOTE | 2021-02-08 09:41 | NUR ---
O2 SAT IS 98% ON 8L HIGH FLOW NC. TITRATED TO 5L. O2 SAT IS 94%. PT. SEATED UPRIGHT IN CHAIR AND LEFT RESTING WITH CALL LIGHT IN REACH.
--- NOTE | 2021-02-08 11:50 | NUR ---
Pt cont. to not do well per update from RN. MDT discussed rise in WBC to 27.6. No dc.
--- NOTE | 2021-02-08 16:46 | NUR ---
PT. USED CALL LIGHT APPROPRIATELY AND REQUESTED ASSISTANCE WITH REPOSITIONING. REPOSITIONED TO HER SIDE WITH PILLOWS. UP IN THE CHAIR. PT. DENIES FURTHER NEED. LEFT RESTING IN BED WITH CALL LIGHT IN REACH.
--- NOTE | 2021-02-08 19:42 | NUR ---
Patient resting in chair, eyes closed, respirations even and non labored. Patient has no notable distress. Personal supplies and call light within reach.
--- NOTE | 2021-02-08 23:12 | NUR ---
Assisted patient to bed. Patient incontinent of urine and stool. Skin barrier cream and new brief placed. Patient remains on 5L per nc. Patient denies sob, respirations even and non labored. Oriented patient to call light. Bed in low position, alarm intact.
--- NOTE | 2021-02-09 01:00 | NUR ---
ASSUMED CARE OF PT. PT APPEARS TP BE SLEEPING WITH EYES CLOSED AND EVEN RR. BED ALARM ON FOR SAFETY.
--- NOTE | 2021-02-09 03:15 | NUR ---
ROUNDS: PT APPEARS TO BE SLEEPING WITH A RIGHT TILT. NO APPARENT SIGNS OF DISTRESS. CALL LIGHT WITHIN REACH. BED ALARM ON FOR SAFETY.
--- NOTE | 2021-02-09 04:00 | NUR ---
IN WITH RN TO ASSIST WITH BM INCONT AND ATTENDS CHANGED, NEW CHUX IN PLACE, VITAL TAKEN, SIPS OF WATER TAKEN, NO FURTHER NEEDS
--- NOTE | 2021-02-09 04:22 | NUR ---
ROUNDS: PT WAS AWAKE AND STATES " I NEED SOME HELP". PT HAD BEEN INCONTINENT OF STOOL. BEDDING, GOWN, DEPENDS AND CHUX REAPPLIED. COCCYX AND BUTTOCKS ARE REDDENED. BARRIER CREAM APPLIED AND PT HIPS FLOATED. PT IS 89% ON 5L NC. CALL LIGHT WITHIN REACH. ASSESSMENT DONE, VITALS, I&OS COMPLETE. PT DENIES FURTHER NEEDS AT THIS TIME.
--- NOTE | 2021-02-09 07:00 | NUR ---
CRITICAL LAB VALUE RECIEVED FROM THE LAB. WBC 36.1. DR PORTILLO INFORMED. NO NEW ORDERS AT THIS TIME.
--- NOTE | 2021-02-09 07:15 | NUR ---
this rn revceived report from nataliya bustillo. pt appears to be resting at this time with respirations noted and call light within reach
--- NOTE | 2021-02-09 07:45 | NUR ---
PT IS INCONTINENT OF URINE. BRIEF CHANGED. PT GOT UP TO CHAIR FOR BREAKFAST, LINEN CHANGED, THEN BACK TO BED. PT GOT WARM BLANKETS AND WHITE BOARD IS UPDATED. CALL LIGHT IS WITHIN REACH. NO FURTHER NEEDS AT THIS TIME.
--- NOTE | 2021-02-09 09:30 | NUR ---
this rn in pts room to do pts assessemtn and give pt morning meds. pt appears to not be very interested in her food this am. pt was able to sit up and take pills with small bites of applesauce. pt only oriented to herself and knowintg that she was in a hospital but not aware of which one.
--- NOTE | 2021-02-09 12:15 | NUR ---
this rn in pts room to give pt her 300mg of po dilt. pt states taht she is hungry and is uncomfortable in her position. this rn able to boost pt up in bed and reposition her to a more comfortable position to be able to eat. pt had ordered a thickened ensure milkshake. pt took a couple bites with med and then started excessively salivating. pt not able to swallow bites, and spit up the milkshake, it did not appear that pt spit up her dilt pill at this time. pt states that she does not want more of the milkshake, this rn to order pt more food. pt stated that she needed to pee, pt incontient prior to notfying this rn. this rn to change pt. while changing pt this rn noted reddend area on her cocyx. this rn cleaned pts luana area by providing standard luana care with wipes. this rn removed and then replaced barrier cream to pts luana area to protect pts skin. this rn also turned pt to her right side to alleviate pressure and supported pts back with pillows. currently pts skin appears reddend nonblanachable
--- NOTE | 2021-02-09 14:53 | NUR ---
PT RESTING IN BED AFTER THIS MANAGER OF APPLICATION DEVELOPMENT CHANGED BRIEF. PT IS INCONTINENT OF BLADDER AND BOWELS. PT DESATS TO 80 WITH MOVEMENT BUT IS BACK UP TO 93 ON 4.5LNC. CALL LIGHT WITHIN REACH, NO FURTHER NEEDS AT THIS TIME. ZEINAB CHEW NOTIFIED.
--- NOTE | 2021-02-09 14:57 | NUR ---
this rn back in pts room to start pts antibiotics. pt appears to be tolkerating well still only oriented to person and partial place at this time. call light within reach and pt is aware on how to use it
--- NOTE | 2021-02-09 16:00 | NUR ---
per pt request this rn in pts room to reposition her. pt stated that her back hurt, this rn able to reposition her to float her hips and tuck pt back in to her warm blankets due to pt stating she was cold.
--- NOTE | 2021-02-09 16:55 | NUR ---
THIS RN IN PTS ROOM PER PT REQUEST TO GET PT UP TO CHAIR PT BELIEVES SHE NEEDS TO GET DRESSED BECAUSE IT IS MORNING, THIS RN REORIENTED PT TO TIME OF DASY. THIS RN HEAVY 1 PERSON ASSISTED PT TO CHAIR AND PROVIDED PT WITH PILLOWS TO ALLEVIATE PRESSRUE. PT STATES THAT SHE IS COMFORTABLE AT THIS TIME AND NEEDS NOTHING FURTHER. THIS RN LEFT PT WITH CALL LIGHT WITHIN REACH
--- NOTE | 2021-02-09 18:53 | NUR ---
PATIENT IN CHAIR RESTING. VITALS AND I&O'S CHARTED. FRESH WATER GIVEN. PATIENT REPOSITIONED. CALL LIGHT IN REACH. NO FURTHER NEEDS AT THIS TIME.
--- NOTE | 2021-02-09 19:53 | NUR ---
PATIENT RESTING QUIETLY ON HER RIGHT SIDE, EYES CLOSED, RESPIRATIONS REGULAR AND EVEN ON 5L/NC. CALL LIGHT IS IN REACH.
--- NOTE | 2021-02-09 21:10 | NUR ---
PATIENT STILL RESTING QUIETLY ON HER LEFT SIDE. RESPIRATIONS REGULAR AND EVEN, EYES CLOSED, CALL LIGHT IN REACH.
--- NOTE | 2021-02-09 22:45 | NUR ---
PATIENT IS INCONTINENT A VERY LARGE AMOUNT OF URINE. PATIENT WASHED UP AND NEW GOWN, ATTENDS, AND CHUX ARE IN PLACE. PATIENT WAS ABLE TO GET HER PM PO MEDICATION DOWN IN SOME APPLESAUCE. MEDHAT QUINTANILLA HELPING IN THE ROOM WITHMYA ARRIOLA. PATIENT IN SEMI-FOWLERS POSITION AND LIGHTS TURNED DOWN. PATIENT SAYS SHE IS WARM ENOUGH AND SHE DRANK SOME THICKENED WATER. CALL LIGHT IN REACH.
--- NOTE | 2021-02-10 00:11 | NUR ---
PATIENT RESTING EYES CLOSED, RESPIRATIONS ARE REGULAR AND EVEN, IN SEMI-FOWLERS POSITION, CALL LIGHT IS IN REACH, AND 5L/NC IS STILL IN PLACE.
--- NOTE | 2021-02-10 02:06 | NUR ---
PATIENT CLEANED UP AND NEW ATTENDS IN PLACE FROM INCONTINENCE. PATIENT REPOSITIONED TO HER LEFT SIDE. PATIENT DENIED THE NEED FOR ANY OTHER CARE. CALL LIGHT IS IN REACH.
--- NOTE | 2021-02-10 04:46 | NUR ---
PATIENT HAS BEEN INCONTINENT OF URINE 5 TIMES TONIGHT SO FAR. PATIENT WAS ALSO JUST INCONTINENT A MEDIUM AMOUNT OF DARK GREEN LIQUID STOOL. PATIENT STILL HAS CRACKLES THROUGHOUT THE LUNG ANTUNEZ. ALLEVYN DRESSING PLACED OVER THE COCCYX AREA FOR REDNESS, BARRIER CREAM BEING APPLIED TO BUTTOCKS AND PERIAREA. TRYING TO KEEP PATIENT TURNED TO HER SIDES AND OFF HER BACK. PATIENT NOW IS TURNED TO HER RIGHT SIDE. RESPIRATIONS ARE REGULAR AND SHALLOW, CALL LIGHT IS IN REACH AND BED ALARM IS ON.
--- NOTE | 2021-02-10 07:17 | NUR ---
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
--- NOTE | 2021-02-10 07:59 | NUR ---
this rn received report from jp bustillo. pt was just turned by bharat morel. pt appears to be rsting comfortably again at this time.
--- NOTE | 2021-02-10 09:30 | NUR ---
THIS RN IN PTS ROOM TO DO PTS VITALS, GIVE MEDS AND DO MORNING ASSESSMENT. PT UP TO CHAIR VIA HELP FROM PHYSICAL THERAPY. PT STATES THAT SHE HAS NO COMPLAINTS THIS AM AND HAS EATEN A BIT OF HER BREAKFAST ALREADY. THIS RN STARTED PTS ANTIBIOTICS.
--- NOTE | 2021-02-10 11:00 | NUR ---
DARYA ARRIOLA ABLE TO FINISH GIVING PT MEDS AT THSI TIME. PT STILL UP TO CHAIR PER REPORT FROM DAYRA ARRIOLA.
--- NOTE | 2021-02-10 13:05 | NUR ---
THIS RN IN PTS ROOM TO START PTS 2ND MAG RIDER. PT BACK IN BED AND IS TURNED OFF ONE HIP. (SEE NEXT NOTE). WHEN ASKED HOW SHE IS, PT RESPONDED WITH "I DON'T KNOW" PT APPEARS TO BE WEAKER THAN NOTED THIS AM. THIS RN WILL CONTINUE TO MONITOR CLOSELY.
--- NOTE | 2021-02-10 13:12 | NUR ---
BREEZY AND FRED ACUTE CARE NURSING ASSISTANT PLACED PT ON AN EGG CRATE MATTRESS TO ALLEVIATE PRESSURE ON PTS BONY PROMINANCES AND ALSO TURNED PT ONTO HER SIDE AND PROPPED WITH PILLOWS. PT SITING UP AT 30 DEGREES DUE TO ASPIRATION RISK
--- NOTE | 2021-02-10 14:30 | NUR ---
THIS RN IN PTS ROOM TO STRAIGHT CATH PT TO OBTAIN A URINE SAMPLE. PT TOLERATED WELL AND THIS RN USED STERILE TECHNIQUE IN ORDER TO OBTAIN SAMPLE. FRED MELÉNDEZ IN PTS ROOM TO ASSIST THIS RN. PT REPOSITIONED AT THIS TIME WITH A PILLOW SET BEHIND PTS LEFT BUTT CHEECK TO ALLEVIATE PRESSURE. PT APPEARS TO BE COMFORTABLE AND STATES THAT SHE NEEDS NOTHING ELSE AT THSI TIME
--- NOTE | 2021-02-10 17:00 | NUR ---
PT WAS TURNED ON THE RIGHT SIDE AND ASLEEP. THIS RN BROUGHT DINNER IN AND SAT PT UP IN BED. THIS OBGYN SPECIALIST FED PT 85% OF THE MEAL. THIS OBGYN SPECIALIST TOOK THE PT'S VITALS AND I&OS. THIS OBGYN SPECIALIST CHECKED PT'S BRIEF AND IT WAS DRY. THIS OBGYN SPECIALIST THEN TURNED PT ON THEIR LEFT SIDE AND PROPPED THEM WITH PILLOWS. PT HAD CALL LIGHT. NO OTHER NEEDS AT THIS TIME.
--- NOTE | 2021-02-10 18:00 | NUR ---
THIS RN IN TO CHECK ON PT. FRED MELÉNDEZ IN PTS ROOM AND IS REPOSITIONING PT TO HER LIKING. PT APPEARS COMFORTABLE AND APPEARS THAT SHE NEEDS NOTHING FURTHER AT THIS TIME.
--- NOTE | 2021-02-10 19:37 | NUR ---
PATIENT RESTING QUIETLY ON HER LEFT SIDE. RESPIRATIONS ARE REGULAR AND EVEN, EYES ARE CLOSED, CALL LIGHT IS IN REACH. SHIFT REPORT RECEIVED FROM ZEINAB CHEW.
--- NOTE | 2021-02-10 20:20 | NUR ---
PATIENT TURNED TO HER BACK AFTER ATTENDS CHANGED FOR INCONTINENCE OF URINE AND A SMEAR OF STOOL. MAGALYS ON COCCYX C/D/I. PATIENT TOOK A SIP OF THICKENED WATER AND GOT DOWN HER EVENING MED IN APPLESAUCE. PATIENT REMAINS ON 5L/NC, CRACKLES CAN BE HEARD THROUGHOUT LUNG ANTUNEZ. VS ARE STABLE ON OXYGEN. PATIENT HAS NO OTHER CARE NEEDS AT THIS TIME. CALL LIGHT IS IN REACH.
--- NOTE | 2021-02-10 22:38 | NUR ---
PATIENT REPOSITIONED TO HER RIGHT SIDE. PATIENT REMAINS ON EGGCRATE MATRESS. PO FLUIDS OFFERED AND PATIENT TOOK A FEW SIPS OF THICKENED WATER. PATIENT'S ATTENDS DRY AT THIS TIME. GARBAGE IN ROOM EMPTIED. LIGHTS TURNED DOWN AND PATIENT'S CALL LIGHT IS IN REACH.
--- NOTE | 2021-02-11 00:30 | NUR ---
PATIENT PULLED UP IN BED AND POSITIONED TO HER LEFT SIDE AFTER WET ATTENDS CHANGED AND BARRIER CREAM APPLIED. NEW ALLEVYN APPLIED TO COCCYX AREA WHICH IS RED, BUT AREA IS BLANCHABLE, NO OPEN AREAS, PICTURES PLACED IN CHART. PATIENT COVERED WITH NEW WARM BLANLKETS AND ASKED IF SHE NEEDED ANYHTING ELSE FROM THIS RN. PATIENT REPLIED,"I AM FINE FOR NOW." CALL LIGHT IS IN REACH.
--- NOTE | 2021-02-11 02:23 | NUR ---
PATIENT REPOSITIONED TO HER BACK. ATTENDS ARE DRY. PATIENT HAS NO REQUESTS AT THIS TIME. CALL LIGHT IN REACH.
--- NOTE | 2021-02-11 04:45 | NUR ---
PATIENT'S ATTENDS CHANGED AND BARRIER CREAM APPLIED. PATIENT REPOSITIONED TO HER RIGHT SIDE. PATIENT REQUESTED A DRINK OF WATER AND WAS SAT UP AND HELPED TO TILT FORWARD BY THIS RN TO TAKE A SIP OF WATER. PATIENT WEIGHED AND THEN WARM BLANKETS PUT ON THE PATIENT. GAGABE IN THE ROOM EMPTIED AND WHITE BOARD UPDATED. CALL LIGHT IS IN REACH AND BED ALARM IS ON.
--- NOTE | 2021-02-11 07:00 | NUR ---
REPORT GIVEN TO ZEINAB CHAIDEZ. APTIENT RESTING QUIETLY AT THIS TIME. EYES CLOSED, RESPIRATIONS REGULAR AND EVEN, BED ALARM ON, AND CALL LIGHT IS IN REACH.
--- NOTE | 2021-02-11 07:20 | NUR ---
0700 - critical lab value of wbc 33.2 as per lab via phone 07 - dr danielle in unit, notified verbally by Magda about above levels, "they been going up for a while," no new orders
--- NOTE | 2021-02-11 07:43 | NUR ---
incontinent of urine, red luana and buttocks area, barrer cream, skin care, clean attends in place. repositoned in bed. up to chair for meals. cooperastive, pleasantly confused. O2 4L NC/Vapotherm. lungs crackles at bases, no sob noted with exertion, legs elevate, aspiration precautions
--- NOTE | 2021-02-11 09:39 | NUR ---
pt in assessing pt. pt up in chair, 2pa back to bed. unsteady gait. weakness. o2 4lvapotherm, no sob noted. sats 90% on return. ate 25% meals, stated "I do not want it anymore", cough moist non productive present after eating, reionded to tuck chin down, semi receptive. back to bed, attend dry, legs elevated, iv abx infusing.
--- NOTE | 2021-02-11 10:24 | NUR ---
attends changed, helped, no c/o pain. o2 4lnc
--- NOTE | 2021-02-11 11:02 | NUR ---
PATIENT REPOSITIONED ONTO LEFT SIDE WITH PILLOWS UNDER RIGHT SIDE AND BETWEEN LEGS. PATIENT COMFORTABLE AT THIS TIME. CALL LIGHT IN REACH. NO FURTHER NEEDS AT THIS TIME.
--- NOTE | 2021-02-11 12:00 | NUR ---
WENT IN TO CHECK ON PATIENT AND REPOSITION HER. PATIENT INCONT. OF URINE. JERMAINE CARE DONE. NEW ATTENDS IN PLACE. BERRIER CREAM PUT ON. PATIENT REPOSITIONED WITH PILLOWS UNDER BOTH SIDES. HEAD OF BED SEAT UP FOR LUNCH. RN IN ROOM AT THIS TIME. CALL LIGHT IN REACH. NO FURTHER NEEDS AT THIS TIME.
--- NOTE | 2021-02-11 12:03 | NUR ---
pt repositioned up in bed for meals, feeding self, tolerating liquids, no cough, using chin tuck down while eating/drinking at this time. NS bolus started. no c/o adverse reaction to abx. O2 in place. was incontinent of urine and changed by demographer, has been repositoned
--- NOTE | 2021-02-11 14:55 | NUR ---
respositioned, ivf infusing, O2 4LNC, attends dry
--- NOTE | 2021-02-11 15:13 | NUR ---
PT REPOSITIONED AND BREIF CHECKED. PT IS DRY. PT ON RIGHT HIP FACING THE DOOR. CALL LIGHT WITHIN REACH.NO FURTHER NEEDS AT THIS TIME
--- NOTE | 2021-02-11 15:57 | NUR ---
Pt sitting up in recliner today. Cont. with dementia. Plan for return to [facility] on dc.
--- NOTE | 2021-02-11 16:06 | NUR ---
PT ON O2 4LNC, LUNGS CRACKLES R UPPER, DIM T/O,, NO SOB WITH EXERTION. UP TO CHAIR FOR BREAKFAST, DECLINED TO GET UP TO CHAIR FOR LUNCH. PT WAS IN ROOM ASSESSING PT. NO C/OA DVERSE REACTION TO IV ABX. IVF BOLUS INFUSING W/O PROBLEMS. TURNED AND REPOSITIONED Q2H, COOPERATIVE, RED JERMAINE AND BUTTOCKS AREA, NEW ORDER FOR DESENEX OBTAINED, BARRIER CREAM AND SKIN CARE DONE, ATTENDS IN PLACE, CONT ON PUREED DIET WITH THICKENED LIQUIDS, MOIST NON PRODUCTIVE COUGH AFTER ANY PO INTACKE, ASPIRATION PRECAUTIONS INPLACE. EDEMA TO LE 1+, ELEVATED. INCONTINENT OF URINE. WAS VERY ANXIOUS AT BEGINING OF SHIFT, MAHSA, COOPERATIVE AND FOLLOWING INSTRUCTIONS AT THIS TIME. ATE 25% OF BOTH MEALS
--- NOTE | 2021-02-11 18:11 | NUR ---
pt repositioned in bed, incontinent of urine, skin care, barrier cream applied. procedure explained, cooperative, O2 4L NC, sitting up in bed, calm.
--- NOTE | 2021-02-11 19:10 | NUR ---
REPORT RECEIVED FROM DAY SHIFT RN. PT LYING IN BED WITH EYES CLOSED. DAY SHIFT RN AND TONGUE BINDER IN TO ROOM TO CHANGE POSITIONS AND DO INCONTINENCE CARE.
--- NOTE | 2021-02-11 19:24 | NUR ---
pt ate 25% or less of dinner, sips of thickened liquid. turned to R side, attends changed, was incontinent of urine, skin care, barrier cream, legs elevated. ivf infusing w/o problems. O2 at 3.5L spot checks 94%. no distress
--- NOTE | 2021-02-11 21:00 | NUR ---
ASSISTED PRIMARY RN JOSE. V/S AND I&O DONE. CHANGED ATTENDS. PATIENT REPOSITIONED. CALL LIGHT IN REACH. BED ALARM ON ALICIA SAFETY.
--- NOTE | 2021-02-11 21:30 | NUR ---
EVENING ASSESSMENT COMPLETE. SCHEDULED MEDS ADMINISTERED WITH APPLE SAUCE. HOB ELEVATED. ENCOURAGED CHIN TUCK WITH SWALLOWING. SIPS OF THICKENED WATER PROVIDED. PT ORIENTED TO SELF ONLY. COOPERATIVE WITH CARES AND ABLE TO FOLLOW INSTRUCTIONS. PT INCONTINENT OF URINE. CLEAN ATTENDS PLACED. JERMAINE CARE DONE. JERMAINE AREA RED. POWDER AND BARRIER CREAM APPLIED. ALLEVYN INTACT ON COCCYX. PT RESPOSITIONED TO SIDE WITH PILLOWS. SpO2 99% ON 3.5L. RESPIRATIONS EVEN. HR IRREGULAR. PT NODS HEAD WHEN ASKED IF SHE IS COMFORTABLE. BED ALARM FOR SAFETY. CALL LIGHT IN REACH.
--- NOTE | 2021-02-11 23:45 | NUR ---
PT RESTING ON BACK. RESPIRATIONS EVEN. IV ABX INFUSING. O2/NC IN PLACE. BED ALARM FOR SAFETY.
--- NOTE | 2021-02-12 00:43 | NUR ---
PT INCONTINENT OF URINE. BRIEF CHANGED. JERMAINE CARE DONE. FLOATED PT WITH PILLOWS. PT REPORTS SHE IS COMFORTABLE. RESPIRATIONS EVEN. 3.5L/NC IN PLACE.
--- NOTE | 2021-02-12 02:59 | NUR ---
PT INCONTINENT OF URINE. JERMAINE CARE DONE. BARRIER CREAM AND CLEAN ATTENDS PLACED. HOB ELEVATED FOR SIPS OF WATER. CHIN TUCK ENCOURAGED WITH SWALLOWING. NO COUGHING NOTED. ASSISTED WITH ORAL CARE. PT REPORTS SHE IS RESTING COMFORTABLY. DENIES SOB OR PAIN. 3.5L/NC IN PLACE. RESPIRATIONS EVEN. REPOSITIONED IN BED WITH PILLOWS. NO FURTHER NEEDS AT THIS TIME. CALL LIGHT IN REACH.
--- NOTE | 2021-02-12 05:40 | NUR ---
VS AND I&O COMPLETE. PT EMOTIONAL AND REPEATEDLY ASKING WHERE SHE IS AND HOW LONG SHE HAS BEEN HERE. THERAPEUTIC COMMUNICATION UTLIZED. PT INCONTINENT OF URINE. JERMAINE CARE DONE. BARRIER CREAM AND CLEAN BRIEF PLACED. HOB ELEVATED FOR SIPS OF THICKENED WATER. ENCOURAGED CHIN TUCK. PT COUGHED UP MODERATE AMOUNT THICK BLOOD TINGED SPUTUM. ASSISTED WITH ORAL CARE. REPOSITIONED WITH PILLOWS. HOB REMAINS ELEVATED. WARM BLANKET PROVIDED. LAB IN ROOM FOR MORNING DRAW.
--- NOTE | 2021-02-12 07:30 | NUR ---
this rn received report from denae bustillo. pt appears to be resting comfortably on her side at this time with good respirtaions noted.
--- NOTE | 2021-02-12 08:20 | NUR ---
htis rn in pts room to set pt up for breakfast. pt states that she would like to be repositioned. this rn placed pt flat on bottom and sitting all the way up. pt states that she is able to feed herself this am and needs nothing further.
--- NOTE | 2021-02-12 10:00 | NUR ---
THIS RN IN PTS ROOM TO REPOSITION PT AND TO GIVE PT HER MORNING MEDS. THIS RN ATTEMPTED TO START A NEW IV, PTS CURRENT IV WENT BAD AND INFILTRATED NS. JUDIT RN ABLE TO GET NEW IV TO START PTS ANTIBIOTICS. PT ABLE TO TAKE MEDS IN APPLESAUCE WELL WITH MINIMAL COUGHING. THIS RN CUED PT TO TUCK HER CHIN AND PT APPEARED TO DO BETTER WITH THE CUEING. PT ROLLED TO LEFT SIDE AT THIS TIME, PT TOLERATED WELL WITH PILLOW UNDER RIGHT HIP. PT STATES THAT SHE DOESN'T NEED ANYTHING FURTHER AT THIS TIME.
--- NOTE | 2021-02-12 11:00 | NUR ---
THIS RN IN PTS ROOM WITH JANAY ROBLEDO TO DO PTS BED BATH, REPOSITION, DO A INCONTINENCE CHANGE. STAFF IN PTS ROOM FOR HALF AN HOUR. THIS RN REPLCED PTS ALLEVEN DRESSING ON HER COCCYX. PT TOLERATED WELL, THIS RN PLACED BARRIER CREAM AND DESENEX POWDER TO HELP PROTECT AND ALLEVIATE ANY SKIN ISSUES. PT STATES THAT SHE NEEDS NOTHING ELSE AT THIS TIME. THIS RN NOTED REDDEND AREA THAT STARTS AROUND HER GROIN/URETHRA AREA AND GOES ALL THE WAY DOWN TO HER ANUS. THERE IS A SMALL REDDENED AREA ON THE COCCYX- HENCE THE ALLEVEN DRESSING. NONE OF THE REDDENED AREA IS BLANCHABLE. THIS RN WILL CONTINUE TO TURN AND DRESS THE AREA WITH DESENEX.
--- NOTE | 2021-02-12 12:35 | NUR ---
THIS RN IN PTS ROOM TO GET PT POSITIONED TO EAT LUNCH. PT TO SIT STRAIGHT UP. PT TOLERATING WELL AND STATES THAT SHE NEEDS NOTHING FURTHER. PT SHOWED GREAT INTEREST IN HER YOGURT AND THICKENED BANEGAS ENSURE. [facility]
--- NOTE | 2021-02-12 14:30 | NUR ---
THIS RN IN PTS ROOM WITH YVONNE RN FROM W[facility]ARE TO INSPECT PTS COCYX AND JERMAINE AREA. PT TOELRATED WELL AND DID HAVE AN INCOTINENT BM. THIS RN GOT PT CLEANED UP, PLACED BARRIER CREAM AND MORE DESENEX POWDER IN THE JERMAINE AREA. THIS RN WITH ASSISTANCE FROM YVONNE PLACED A COCCYX ALLEVEN DUE TO THE LAST ONE GETTING SATURATED WITH STOOL
--- NOTE | 2021-02-12 15:30 | NUR ---
Pt cont. with elevated WBC. No change in plan for dc when pt can discharge.
--- NOTE | 2021-02-12 15:42 | NUR ---
LE 8597 THIS RN SAW PT FOR A WOUND CONSULT WITH HELP FROM JEEVAN ARRIOLA. PT HAD LG BM. CHANGED ATTENDS AND CLEANED UP WITH WIPES. STAGE 1 PRESSURE ULCER NOTED ON COCCYX. STAGE 2 PRESSURE ULCER NOTED ON RIGHT BUTTOCKS. COVERED WOUND WITH ALLEVYN COCCYX DRSG TO HELP ALLEVIATED PRESSURE. JERMAINE/GROIN AREA CLEANED AND PT'S PRESCRIBED POWDER APPLIED. ATTENDS PLACED AND PT REPOSITIONED TO LEFT SIDE. 6485 PT'S CALL LIGHT GIVEN TO HER AND SIDE RAILS UP. SEE WOUND ASSESSMENT FOR MEASUREMENTS.
--- NOTE | 2021-02-12 17:43 | NUR ---
THIS RN IN PTS ROOM TO GIVE PT HER DINER. PT APPEARS TO BE A BIT DISTRESSED WHEN THIS RN ENTERED ROOM. PT STATES THAT SHE DOESN'T FEEL GREAT DUE TO TRYING TO SIP ON THE THICKENED PEPSI DRINK THIS RN PROVIDED TO PT AROUND 1600. IT APPEARS THAT PT STRUGGLED TO SIP IT DUE TO IT APPEARIG THERE TO BE SPIT UP ON THE PTS SHEETS PT STATES THAT SHE IS NOT HUNGRY. BUT IS WILLING TO TAKE A SIP OF WATER THIS RN DID REPOSITION PT ONTO HER RIGHT SIDE TO ASSIST WITH PREVENTING SKIN BREAKDOWN.
--- NOTE | 2021-02-12 19:15 | NUR ---
RECEIVED REPORT, PT IS RESTING WITH EYES CLOSED AT THIS TIME. CALL LIGHT IS CLOSE.
--- NOTE | 2021-02-12 19:45 | NUR ---
ANSWERED CALL LIGHT. CHANGED BED LINEN. CHANGED INCONTINENT ATTENDS. PATIENT REPOSITIONED. V/S AND I&O COMPLETED.
--- NOTE | 2021-02-12 21:04 | NUR ---
IN ROOM TO ASSESS PT AND ADMINISTER MEDICATIONS. REPOSITIONED WITH HELP OF JOON MELÉNDEZ, PT FLOATED ON PILLOWS UNDER EACH HIP. EGGCRATE MATTRESS IN PLACE. ALLEYVN ON COCCYX IS CDI, BARRIER CREAM AND DESENEX APPLIED TO REDDENED PERIAREA. PT HAD DIFFICULT TIME SWALLOWING TOPROLOL PILL IN APPLESAUCE, CUT IT IN HALF AND PT WAS ABLE TO SWALLOW PILL. SHE COUGHS AFTER DRINKING MODERATLY THICKENED LIQUIDS. PT DENIES PAIN AND DENIES SOB. SHE IS ON 3.5L NC. PT DENIES FURTHER NEEDS AT THIS TIME. CALL LIGHT IS CLOSE AND BED ALARM IS ON.
--- NOTE | 2021-02-12 23:02 | NUR ---
PT IS RESTING WITH EYES CLOSED, RR IS EVEN AND NONLABORED. PT REMAINS FLOATED ON PILLOWS UNDER EACH HIP. CALL LIGHT IS CLOSE.
--- NOTE | 2021-02-13 00:05 | NUR ---
REPOSITIONED PT BY REMOVING PILLOW FROM UNDER L HIP. PT DENIES NEEDS AT THIS TIME. CALL LIGHT IS CLOSE.
--- NOTE | 2021-02-13 01:41 | NUR ---
ASSISTED PRIMARY RN GIL CHANGED PATIENT'S INCONTINENT ATTENDS. PATIENT REPOSITIONED.
--- NOTE | 2021-02-13 01:43 | NUR ---
CHANGED PT'S ATTENDS WITH HELP OF JOON MELÉNDEZ AND APPLIED BARRIER CREAM. PT IS REPOSITIONED TO L HIP WITH PILLOWS BEHIND HER BACK ON BETWEEN HER LEGS. PT DENIES PAIN AND SOB. CALL LIGHT IS CLOSE AND BED ALARM IS ON.
--- NOTE | 2021-02-13 03:26 | NUR ---
REMOVED PILLOWS FROM UNDERSIDE SO PT CAN LAY FLAT FOR A BIT, PT DENIES FURTHER NEEDS. CALL LIGHT IS CLOSE AND BED ALARM IS ON.
--- NOTE | 2021-02-13 04:53 | NUR ---
PT CALLED OUT WHEN THIS RN WAS WALING BY, SHE STATES SHE CANNOT MOVE. ASSISTED PT TO TURN LAYING ON HER R SIDE WITH PILLOWS BEHIND L SIDE. PT DENIES FURTHER NEEDS. CALL LIGHT IS CLOSE.
--- NOTE | 2021-02-13 07:23 | NUR ---
Updated notes and labs faxed to Summer at [facility]. Texted Summer and asked if pt is able to be discharged, if they could accept today or tomorrow. Received an immediate answer of, "yes".
--- NOTE | 2021-02-13 07:30 | NUR ---
RECEIVED REPORT AT 0700, PT WAS IN BED SLEEPING.
--- NOTE | 2021-02-13 08:15 | NUR ---
ALL LOBES CLEAR, LOWER LOBES DIMINISHED. PT CONFUSED TO CIRCUMSTANCE, YEAR, MONTH AND DATE. PT HAD AN INCONT. EPISODE AND WAS CHANGED AND TURNED TO HER LEFT SIDE. NO PERIPH. EDEMA NOTED, ABD SOUNDS PRESENT. OVERALL NO NEW CONCERNS WERE NOTED PT REMAINS ON O2 AT 3.5L.
--- NOTE | 2021-02-13 08:25 | NUR ---
ASSISTED NURSE SEYMOUR WITH ATTEND CHANGE. APPLIED CREAM AND POWDER TO RED AREAS. PATIENT IS RESTING IN BED. NURSE AND PATIENT DO NOT NEED ANYTHING AT THIS TIME. CALL LIGHT IN REACH.
--- NOTE | 2021-02-13 09:39 | NUR ---
Pt was discussed in [address] Acuna and future plan for DC. He feels pt should dc to a SNF as family want all treatments to cont. for this pt. We then discussed pts dementia and concern for pt to go to a SNF she would need to go to [place] as this is the only SNF I can send covid pts to.He asks I call and discuss with son. Called and spoke with Neil. He states he wants all treatements to cont. and to make sure pt is able to cont. fluid and food intake needed to maintain her weight. He wants antibiotics to cont. 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 I informed him I don't know this answer, but I can ask the Dr and nurses to do this. We discussed HH and number of visits per week they can provide. I updated him [facility]ais has declined OT and ST has worked with pt through the for swallowing and a modified diet. Will plan for discharge to [facility] when pt is closer to discharge. He states he is awaiting a phone call from hospitalist in the next day or so.
--- NOTE | 2021-02-13 10:30 | NUR ---
Updated Dr. Acuna to my call and asked if he is aware step son is awaiting a call today or tomorrow. He states he will call him.
--- NOTE | 2021-02-13 11:01 | NUR ---
PATIENT UP TO SHOWER WITH RN ASSIST. LINENS CHANGED.
--- NOTE | 2021-02-13 11:17 | NUR ---
PT IN ROOM. WILL CONTINUE TO MONITOR.
--- NOTE | 2021-02-13 11:24 | NUR ---
PATIENT RESTING IN BED, EYES CLOSED. WOKE TO VOICE, PATIENT INCONT. OF STOOL. WARM BLANKET PROVIDED, CALL LIGHT IN REACH
--- NOTE | 2021-02-13 12:14 | NUR ---
IN ROOM TO PLACE URINE COLLECTION BAG ON PATIENT, PER ZEINAB AHUJA. PATIENT SAT UP FOR LUNCH, CALL LIGHT WITHIN EASY REACH
--- NOTE | 2021-02-13 13:35 | NUR ---
PT SO FAR HAS NOT VOIDED IN THE COLLECTION BAG. WILL HAVE TO STRAIGHT CATH IN A BIT. SALT MANAGER TO CHECK IN A FEW MINUTES IF PT DID VOID AFTER ALL.
--- NOTE | 2021-02-13 14:08 | NUR ---
STRAIGHT CATH DONE, URINE OBTAINED. LAB HERE TO DRAW 1400 NA+ LEVELS. PT CONFUSED TO PLACE, AND CIRCUMSTANCE. PT WISHES TO GO HOME. ALL UPPER LOBES CLEAR, RLL HAS CRACKLES, LLL IS VERY DIMINISHED. PT TURNED TO HER RIGHT SIDE NOW. BRIEF CHANGED AND SHEETS CHANGED ALSO. PO INTAKE POOR. VOIDS ARE NOT MEASURABLE DUE TO INCONTINENCE.
--- NOTE | 2021-02-13 14:25 | NUR ---
PATIENT RESTING ON RIGHT SIDE. VITALS AND I&OS CHARTED. PATIENT REFUSED SIPS OF WATER. WARM BLANKET PROVIDED. CALL LIGHT IN REACH, GARBAGE EMPTIED. NO OTHER NEEDS AT THIS TIME
--- NOTE | 2021-02-13 16:27 | NUR ---
PT IS SITTING UP IN BED AT THIS TIME AND PT WAS ALSO REPOSISIONED. NO NEW CONCERNS NOTED AT THIS TIME.
--- NOTE | 2021-02-13 18:22 | NUR ---
PATIENT INCONTINENT OF STOOL, 2PA BRIEF AND CHUK REPLACED. PATIENT REPOSITIONED ONTO RIGHT SIDE, TOWEL BETWEEN KNEES AND PILLOW AT HER BACK. VITALS AND I&OS CHARTED. CALL LIGHT IN REACH. GARBAGE EMPTIED. NO OTHER NEEDS AT THIS TIME
--- NOTE | 2021-02-13 18:29 | NUR ---
PT ALL DAY HAD VERY POOR PO INTAKE AND EVEN WITH THE CURRENT DIET CONSISTENCY STILL AT TIMES ASPIRATES IT SEEMS. PT STATED THAT SHE WAS VERY TIRED. UNSURE IF URINE OUTPUT HAS BEEN SUFFICIENT OVERALL. PT SINCE ABOUT 1615 OR SO ON 3% SALINE AT 50MLS/HR DUE TO LOW NA+. PT REMAINED ON 2L O2 NC ALL DAY. PT WAS TURNED Q2HRS THIS SHIFT. V/S OVERALL WDL. LOBES CLEAR AND DIMINISHED. PT DISORIENTED TO TIME, PLACE AND CIRCUMSTANCE. SON MIS WAS INFORMED THAT HE MAY VISIT X1 WHILE PT IS HERE. HE WILL THINK ABOUT COMING TO [place] BEFORE THE WEEKEND OF HER D/C TO [facility].
--- NOTE | 2021-02-13 19:08 | NUR ---
RECEIVED REPORT, PT IS RESTING IN BED WITH EYES CLOSED, SHE IS LAYING ON HER R SIDE. RR IS EVEN AND NONLABORED, CALL LIGHT IS CLOSE.
--- NOTE | 2021-02-13 21:20 | NUR ---
IN ROOM TO ASSESS PT, REPOSTION, AND CHANGE HER. MAGALYS ON COCCYX IS CDI AND REMAINS INTACT, PT DID VOID URINE AND A BM SMEAR. SHE NOW HAS FRESH ATTENDS ON WITH BARRIER CREAM AND DESENEX IN PLACE. PT IS VERY DROWSY AND TALKED WITH HER ABOUT TALKING TO HER SON ON THE PHONE, SHE SEEMED HAPPY ABOUT IT BUT FELL BACK ALSEEP. WE WILL SEE IF SHE IS ALERT ENOUGH TO TALK WITH HIM LATER OR IN THE AM. IV IS INFUSING FINE. HELD TOPROLOL D/T HR BETWEEN 45-50. PT IS FLOATED WITH PILLOWS UNDER EACH HIP AND EGGCRATE MATTRESS IS ALSO IN PLACE. PT DENIES FURTHER NEEDS AT THIS TIME. CALL LIGHT IS CLOSE.
--- NOTE | 2021-02-13 21:30 | NUR ---
IN WITH RN TO GET VITALS, REPOSITIONED PT, NEW ATTENDS IN PLACE, NO FURTHER NEEDS AT THIS TIME
--- NOTE | 2021-02-13 23:02 | NUR ---
PT IS RESTING WITH EYES CLOSED, RR IS EVEN AND NONLABORED. CALL LIGHT IS CLOSE AND IV IS INFUSING FINE.
--- NOTE | 2021-02-14 01:05 | NUR ---
IV WAS BEEPING, IV ABX IS COMPLETE. IV IS INFUSING FINE. REPOSITIONED PT LAYING ON HER LEFT SIDE WITH PILLOWS BEHIND HER R SIDE. SHE DENIES PAIN AND SOB. PT DENIES FURTHER NEEDS AT THIS TIME. CALL LIGHT IS CLOSE.
--- NOTE | 2021-02-14 03:32 | NUR ---
IN ROOM TO REPOSITION PT CHANGED PT'S ATTENDS WELL. BARRIER CREAM APPLIED AND PT REPOSITIONED TO HER R SIDE WITH PILLOWS UNDER HER L SIDE. PT IS ORIENTED TO LOCATION AT THIS TIME BUT STATES SHE IS GOING TO HER GRANDMOTHERS IN [place] TODAY TO GET HER INSURANCE PAPERWORK. PT DENIES PAIN. CALL LIGHT IS CLOSE AND PT DENIES FURTHER NEEDS. IV IS INFUSING FINE.
--- NOTE | 2021-02-14 03:52 | NUR ---
PT BEND HER ARM AND IV WAS BEEPING, IT IS NOW INFUSING FINE. CALL LIGHT IS CLOSE.
--- NOTE | 2021-02-14 06:00 | NUR ---
IN ROOM TO REPOSITION PT TO LEFT SIDE WITH PILLOWS UNDER LEFT. IV IS INFUSING FINE. PT DENIES FURTHER NEEDS. ATTENDS CHANGED AND BARRIER CREAM APPLIED. NEW ALLEYVN IS IN PLACE. CALL LIGHT IS CLOSE.
--- NOTE | 2021-02-14 07:45 | NUR ---
REPORT RECEIVED FROM NIGHT RN AND PT. CARE RESUMED. PT. IS ALERT AND ORIENTED TO SELF ONLY. SHE STATES SHE IS TIRED. 2PA TO PIVOT TO THE CHAIR FOR BREAKFAST. SPEECH THERAPY IN THE ROOM. LUNGS CLEAR THROUGHOUT AND O2 SAT. IS 97% ON 1L NC. IV SITE FLUSHES WELL. ALLEVYN INTACT ON COCCYX AREA. DISCUSSED MEDS, POC AND SAFETY WITH PT. PT. LEFT RESTING WITH CALL LIGHT IN REACH.
--- NOTE | 2021-02-14 07:50 | NUR ---
Updated Summer at [facility], Thais may choose comfort care. Asked if she could return as comfort care or Hospice depending on her converstation with son, Neil, last night.
--- NOTE | 2021-02-14 08:52 | NUR ---
NURSE MICHAEL AND I ASSISTED PATIENT TO CHAIR. PATIENT DID WELL. PATIENT IS NOW EATING BREAKEST WITH OT. DID A COMPLETE LINEN CHANGE. CALL LIGHT IN REACH.
--- NOTE | 2021-02-14 11:00 | NUR ---
Update from RN pt plans on speaking with son about plans for either comfort care or continuing to return to the hospital.
--- NOTE | 2021-02-14 11:12 | NUR ---
PT. HAD AN INCONTINENT VOID SATURATING THE CHAIR. PT. CLEANED, ALLEVYN DRESSING ON COCCYX CHANGED, AND DESENEX APPLIED. COCCYX PRESSURE INJURY IS REDDENED BUT BLANCHABLE AND APPEARS TO BE HEALING WELL. PT. ASSISTED BACK TO BED AND REPOSITIONED ON A PILLOW. LEFT RESTING WITH CALL LIGHT IN REACH.
--- NOTE | 2021-02-14 14:14 | NUR ---
PT. IS VERY DROWSY AND HAS TROUBLE KEEPING HER EYES OPEN. SHE IS ORIENTED TO SELF AND PLACE. 2PA TO PIVOT HER BACK TO BED AND REPOSITION. ATTENDS DRY. PT. DENIES PAIN OR SOB. ON 1L NC AND O2 SAT. IS 98%. IV SITE WNL. PT. LEFT RESTING WITH CALL LIGHT IN REACH.
--- NOTE | 2021-02-14 16:50 | NUR ---
PT. ASSISTED BACK TO BED WITH 2PA AND PIVOT. SHE COULD NOT STAND. REPOSITIONED WITH PILLOWS. GIVEN THICKENED WATER AND LEFT RESTING WITH CALL LIGHT IN REACH.
--- NOTE | 2021-02-14 19:00 | NUR ---
RECEIVED REPORT, PT IS AWAKE IN BED AND DENIES NEEDS AT THIS TIME. CALL LIGHT IS CLOSE.
--- NOTE | 2021-02-14 20:15 | NUR ---
IN ROOM TO ADMINISTER MEDICATIONS AND ASSESS PT. SHE DENIES PAIN AND SOB. IV ABX STARTED AND INFUSING FINE. PT'S APICAL HR WAS 49-HELD TOPROLOL PER ORDER PARAMETERS. REPOSITIONED PT TO L SIDE AT THIS TIME. PT WAS ALERT ENOUGH TO TALK TO HER SON ON THE PHONE. HAD RN STATION CALL HIM AND TRANSFER HIM INTO ROOM TO TALK TO HER. PT DENIES NEEDS, CALL LIGHT IS CLOSE.
--- NOTE | 2021-02-14 23:20 | NUR ---
IN ROOM TO REPOSITION PT. SHE WAS AWAKE AND SAID SHE WAS UNCOMFORTABLE AND COLD. CHECKED ATTENDS AND PT HAD BM PLUS URINATED. CHANGED ATTENDS WITH HELP OF DWIGHT MELÉNDEZ. HUMBERTO ON COCCYX IS CDI. WARM BLANKETS PROVIDED AND PT IS FLOATED ON PILLOWS UNDER EA HIP. PT REQUESTED CHOCOLATE ICECREAM, FOUND SOME ORANGE SORBERT IN THE FREEZER AND PT WAS OK WITH THAT FOR NOW. HEAT TREATING BLUER WILL ASSIST PT TO EAT IT.
--- NOTE | 2021-02-14 23:30 | NUR ---
after assisting rn to change pt, boosted in bed and floated, assisted pt to eat ice cream and theraputic chat, pt is comfortable and has no further needs, pt also provided with sips of water
--- NOTE | 2021-02-15 01:42 | NUR ---
IN ROOM TO REPOSITION PT BECAUSE SHE SAID SHE NEEDS TO GET UP AND GET DRESSED TO GO HOME. BOOSTED IN BED AND PT WANTS TO REMAIN IN HER CURRENT POSITION FLOATED WITH PILLOWS UNDER HER HIPS. PT WOULD LIKE ICECREAM. WILL CHECK DOWNSTAIRS FOR MORE. CALL LIGHT IS CLOSE.
--- NOTE | 2021-02-15 01:50 | NUR ---
IN TO PROVIDE PT WITH ICE CREAM, ASSISTED PT WITH FEEDING, PT IS DISORIENTATED TO PLACE BUT REDIRECTABLE, PT IS CONTENT AFTER HAVING ICE CREAM, REMINDED PT HOW TO CALL US WITH THE CALL LIGHT, NO FURTHER NEEDS AT THIS TIME
--- NOTE | 2021-02-15 04:42 | NUR ---
CHECKED ON PT SHE IS AWAKE IN BED, ASISTED HER TO ROLL ONTO L SIDE AND PROVIDED WARM BLANKET. PT DENIES WETS ATTEND AND DENIES FURTHER NEEDS. CALL LIGHT IS CLOSE.
--- NOTE | 2021-02-15 06:27 | NUR ---
CHANGED PT'S ATTENDS AND REPOSITIONED PT WITH PILLOW UNDER L HIP. VS TAKEN AND ENTERED. PT FED SOME JESSE ENSURE/ICECREAM BY [facility] QUINTANILLA. PT DENIES FURTHER NEEDS. AT THIS TIME. CALL LIGHT IS CLOSE.
--- NOTE | 2021-02-15 06:57 | NUR ---
IN ROOM TO ADMINISTER THYROID MED IN ENSURE/ICECREAM. PT DENIES FURTHER NEEDS. CALL LIGHT IS CLOSE.
--- NOTE | 2021-02-15 07:30 | NUR ---
PT WAS IN BED. THIS METAL SANDER AND FINISHER CHANGED PT'S BRIEF. PT STATED THEY WERE WANTING TO CRY BECAUSE THEY WERE SICK OF BEING IN THE HOSPITAL. THIS METAL SANDER AND FINISHER ASKED WHAT WOULD MAKE THE PT FEEL BETTER AND PT STATED THEY WOULD LIKE ICE CREAM. THIS METAL SANDER AND FINISHER AND NURSE RODRIGUEZ HELPED TRANSFER PT FROM BED TO CHAIR. PT HAD CALL LIGHT WITHIN REACH. WHITEBOARD WAS UPDATED. THIS METAL SANDER AND FINISHER GAVE PT BREAKFAST AND ICE CREAM MIXED WITH THICKENED ENSURE. NO FURTHER NEEDS AT THIS TIME. NURSE RODRIGUEZ WAS NOTIFIED ABOUT ICE CREAM MIXTURE.
--- NOTE | 2021-02-15 07:45 | NUR ---
REPORT RECEIVED FROM NIGHT RN AND PT. CARE RESUMED. PT IS ALERT AND ORIENTED TO SELF AND PLACE. 2PA TO PIVOT TO CHAIR FOR BREAKFAST. SHE IS STILL UNABLE TO STAND ON HER OWN. ON RA AND O2 SAT. IS 97%. IV FLUSHES WELL. PT. DENIES PAIN. DISCUSSED SAFETY, EATING AND MEDICATIONS. LEFT RESTING WITH CALL LIGHT LIGHT IN REACH.
--- NOTE | 2021-02-15 09:45 | NUR ---
PT. BEDDING CHANGED. PT. DENIES PAIN OR FURTHER NEEDS AT THIS TIME. P.T. IN TO WORK WITH PT.
--- NOTE | 2021-02-15 13:33 | NUR ---
PT. IS SLEEPING UPRIGHT IN HER CHAIR AFTER LUNCH. SHE ATE ABOUT HALF HER LUNCH. ATTENDS DRY. PT. ON RA AND O2 SAT. IS 95%. IV ABX COMPLETED AND PT. SALINE LOCKED. PT. ASSISTED WITH REPOSITIONING AND LEFT RESTING WITH CALL LIGHT IN REACH.
--- NOTE | 2021-02-15 14:29 | NUR ---
NO CHANGES IN DISCHARGE PLAN AT THIS TIME.
--- NOTE | 2021-02-15 16:17 | NUR ---
PT WAS TURNED FROM RIGHT SIDE TO LEFT PER Q2H ORDER. PT WILL BE TURNED AGAIN AT 1800.
--- NOTE | 2021-02-15 17:01 | NUR ---
CHANGED PT'S BRIEF WITH ASSISSTANCE FROM [employer]. GOT PT UP TO CHAIR FOR DINNER. CALL LIGHT WITHIN REACH. NO FURTHER NEEDS AT THIS TIME.
--- NOTE | 2021-02-15 17:28 | NUR ---
HELPED WITH CHANGEING PATIENT BEFORE GETTING HER UP IN THE CHAIR FOR DINNER.
--- NOTE | 2021-02-15 21:50 | NUR ---
IN TO GET VITALS, WITH RN, CHANGED PT ATTENDS, NO FURTHER NEEDS AT THIS TIME
--- NOTE | 2021-02-15 22:10 | NUR ---
pt continues on airborne isolation. on room air. lungs with fine crackles and dim R base and R upper. no cough, alert to name, place and situationw ith intermitent bouts of forgetfulness. SL RA patent. Merren started. Pt coop with assessment, turned and repositioned. incontinent of bowel and bladder, attends changed, much improved redness of luana and buttocks area. barrier skin lotion and powder applied. Allevyn to cocyx are in place, edema trace feet much improved, elevated. took meds crushed in puding, tuck chin down and tolerated very well, hob elevated sitting position in bed for meals, no cough afterwards, tolerated small amount of thickened liquids afterwards no cough. call light and fludis at bedside,
--- NOTE | 2021-02-15 23:42 | NUR ---
IV BEEPING, FIXED, PT STTAED SHE HAD URINATED IN HER ATTENDS, CHANGED, SKIN BARRIER, POWDER APPLIED. CLEAN ATTENDS IN PLACE. HELPED WITH REPOSITIONING CALL LIGHT AT HANDS REACH
--- NOTE | 2021-02-16 01:05 | NUR ---
Resting, eyes closed, no distress, on room air. Continues on airborne isolation precautions
--- NOTE | 2021-02-16 01:27 | NUR ---
IV machine beeping, merrem dose completed. pt staed she is wet, attends changed, incontinent of urine, skin care, barrier cream applied, clean attends, cooperative, turned and repositioned, pt helps with turning. no c/o pain. or SOB. watching tv.
--- NOTE | 2021-02-16 03:37 | NUR ---
RESTING, EYS CLOSED, TURNED TO L SIDE, ATTENDS DRY. GOES BACK TO SLEEP, NO C/O DISTRESS, ON ROOM AIR, CONTINUES ON AIRBORNE ISOLATION PRECAUTIONS
--- NOTE | 2021-02-16 05:53 | NUR ---
Pt on room air, lungs with crackles R and dim at bases. no cough after po intake noted, using chin tuck after intake. had one soft bm, incontinent of urine , improved redness luana and buttocks area noted, allevyn to coccyx area, trace edema to feet. on thickened liquids, tolerating much better. on airborne isolation precautions
--- NOTE | 2021-02-16 05:55 | NUR ---
IN TO ASSIST RN WITH VITALS, PT INCONT AT THIS TIME, NEW ATTENDS AND CHUX IN PLACE, NO FURTHER NEED AT THIS TIME
--- NOTE | 2021-02-16 07:45 | NUR ---
REPORT RECEIVED FROM NIGHT RN AND PT. CARE RESUMED. PT. IS ALERT AND ORIENTED TO SELF AND PLACE. ATTENDS WET WITH URINE AND LOOSE BM. ATTENDS AND ALLEVYN TO COCCYX CHANGED. DESENEX APPLIED. 2PA PIVOT TO CHAIR AND REPOSITIONED WITH PILLOWS. IV SITE WNL AND FLUSHES WELL. LUNGS CLEAR THROUGHOUT. 02 SAT IS 96% ON RA. PT ASSISTED WITH BREAKFAST AND LEFT RESTING WITH CALL LIGHT IN REACH.
--- NOTE | 2021-02-16 12:18 | NUR ---
PT. BROUGHT LUNCH. SHE WAS ASSISTED WITH REPOSITIONING IN THE CHAIR. LEFT RESTING WITH CALL LIGHT IN REACH.
--- NOTE | 2021-02-16 13:37 | NUR ---
PT ASSISTED AND PIVOTED FROM CHAIR TO BED. ATTENDS SATURATED WITH INCONTINENT VOID AND LOOSE BM. CHANGED AND DESENEX APPLIED. PT. ON RA AND O2 SAT IS 97%. SHE IS EATING FAIRLY WELL AND DID NOT COUGH OR APPEAR TO ASPIRATE WITH LUNCH. ORIENTED ONLY TO SELF AND PLACE. PT. LEFT RESTING WITH CALL LIGHT IN REACH AND CURTAIN OPEN.
--- NOTE | 2021-02-16 15:50 | NUR ---
PT. USED CALL LIGHT APPROPRIATELY TO REQUEST REPOSITIONING. REPOSITIONED WITH PILLOWS ON HER SIDE. LEFT RESTING WITH CALL LIGHT IN REACH.
--- NOTE | 2021-02-16 22:17 | NUR ---
On room air, pleasantly confused, lungs dim at bases, Irregular heart rate, chronic afib. was incontinent of bowel and large amount of urine. attends changed, skin care, barrier cream and desenex applied, red luana area. trace edema to LE. LS patent RA, IV abx statrted. bruising over arms from previous iv sited healing. took meds in sitting position in bed, cruched in applesauce, chin tucked down, no cough sonn after or for 10 minutes after meds given. turned and repositioned, cooperative, all procedures explained, awake, watching tv, continues on airborne isolation precautions
--- NOTE | 2021-02-17 01:12 | NUR ---
awake, watching tv, incontinent of urine and had small liquid soft bm. skin care, barrier cream applied, turned, cooperative
--- NOTE | 2021-02-17 04:15 | NUR ---
PT IN BED RESTING WITH EYES CLOSED. RESPIRATIONS EVEN. NO APPARENT DISTRESS. IVF INFUSING. CALL LIGHT IN REACH.
--- NOTE | 2021-02-17 06:18 | NUR ---
Pt continues on airborne isolation precautions, on room air, lungs dim at bases, no cough noted this shift. aspiration precautions in place. no c/o adverse reaction to abx. tolerating thickened liquids and pureed diet, meds cruched and given w applesauce, tolerated well. turned every two hours, incontinent of semi liquid bowel movements and urine. buttocks red, barrier cream and desenex powder applied. good skin care done. attends inplace. coop with turning. trace edema at feet, elevated. pleasantly confused at times. cooperative. sl patent.
--- NOTE | 2021-02-17 06:41 | NUR ---
REPOSITONED IN BED, HOB ELEVATED, INCONTINENT OF BOWEL AND BLADDER, SKIN CARE DONE, BARRIER CREAM APPLIED. CLEAN ATTENS IN PLACE. COOPERATIVE, HELPS WITH TURNING. ASPIRATION AND FALL PRECAUTIONS IN PLACE. ON AIRBORNE ISOLATION PRECAUTIONS
--- NOTE | 2021-02-17 08:30 | NUR ---
REPORT RECEIVED FROM NIGHT RN AND PT CARE RESUMED. PT. IS ALERT AND ORIENTED TO SELF. SHE DENIES PAIN. 1PA PIVOT TO CHAIR FOR BREAKFAST. COSTING MANAGER CHANGED ATTENDS. BARRIER CREAM AND DESENEX APPLIED. PT. ATE WELL AND STATES SHE IS HUNGRY THIS MORNING. SHE IS ON RA AND LUNGS CLEAR THROUGHOUT. IV SITE WNL AND FLUSHES. IV ABX ADMIN AND PO MEDS GIVEN WITH YOGURT. PT. LEFT RESTING WITH COSTING MANAGER PRESENT.
--- NOTE | 2021-02-17 15:30 | NUR ---
PT. ASSISTED WITH REPOSITIONING. ATTENDS DRY. PT. DENIES FURTHER NEED. LEFT RESTING WITH CALL LIGHT IN REACH AND CURTAIN OPEN
--- NOTE | 2021-02-17 16:13 | NUR ---
ROUNDING ON PT. SAFE DEPOSIT BOX RENTAL CLERK ASSISTING PT. WITH BED BATH. DENIES NEEDS AT THIS TIME.
--- NOTE | 2021-02-17 16:37 | NUR ---
GAVE PATIENT A BED BATH ALSO WASHED HER HAIR. PUT A NEW GOWN ON. ALSO CHANGED HER AND JERMAINE CARE.
--- NOTE | 2021-02-17 19:30 | NUR ---
RECEIVED REPORT FROM MICHAEL ARRIOLA. PATIENT IS SITTING IN HER CHAIR AT THIS TIME. PATIENT RECEIVING ANTIBIOTICS, AND IS ON EVERY 2 HOUR TURNS AND ONE PERSON ASSIST. CALL LIGHT IN REACH.
--- NOTE | 2021-02-17 19:51 | NUR ---
WENT IN TO CHECK ON PATIENT AND SHE WANTED TO GO BACK TO THE BED. PATIENT ASSISTED BY MYA RN AND JOSE RN TO A STANDING POSITION THEN TO BED. PATIENT'S ATTENDS ARE CHECKED, THEY REMAIN DRY. PATIENT COVERED WITH WARM BLANKETS. INFORMED PATIENT WE WILL BE BACK TO DO ASSESSMENT AND OBTAIN VITALS AND GIVE NIGHTTIME MEDS. CALL LIGHT IN REACH, RAILS UP.
--- NOTE | 2021-02-17 22:07 | NUR ---
IN ROOM TO DO PATIENT CARE, ASSESSMENT AND VITALS AND GIVE NIGHT TIME MEDS SEE EMAR. PATIENT HAD SMALL SOFT BOWEL MOVEMENT THIS CLEANSED AND AND NEW ATTENDS APPLIED. PATIENT GIVEN HER TOPROLOL CRUSHED IN PUDDING. HER MERROPENEM IS INFUSING. PATIENT TURNED ONTO HER LEFT SIDE FOR REPOSITIONING PURPOSES. CALL LIGHT IN REACH
--- NOTE | 2021-02-17 23:46 | NUR ---
IN TO CHECK ON PATIENT AND REPOSITION HER, SHE IS REQUESTING TO SIT UP, PATIENT BACK FROM HER LEFT SIDE TO SITTING UP IN BED HEAD ELEVATED 45 DEGREES FOR COMFORT. INFORMED PATIENT WE WILL NEED TO REPOSITION HER TO HER RIGHT SIDE NEXT. PATIENT RECEIVING HER ABX INFUSION STILL. IV SITE SHOWS NO SIGNS OF SWELLING OR INFILTRATION. ATTENDS CHECKED AND ARE DRY.
--- NOTE | 2021-02-17 23:56 | NUR ---
WENT TO LEAVE PATIENT ROOM AND SHE ASKS "CAN I TURN PLEASE?" AFTER PATIENT ALREADY REPOSITIONED. HAD PATIENT ROLL TOWARD HER RIGHT SIDE, PLACED PILLOWS BEHIND BACKSIDE FOR SUPPORT. CALL LIGHT IN REACH, RAILS UP.
--- NOTE | 2021-02-18 01:52 | NUR ---
IN PATIENT ROOM HER ABX IS COMPLETE LINE FLUSHED. CHECKED PATIENT'S ATTENDS THEY ARE DRY, NO STOOL NOTED EITHER. PATIENT REPOSITIONED TO HER LEFT SIDE PROPPED WITH PILLOWS. PATIENT DENIES PAIN OR OTHER NEEDS. CALL LIGHT IN REACH.
--- NOTE | 2021-02-18 04:19 | NUR ---
IN ROOM TO CHECK ON PATIENT AND REPOSITION HER. PATIENT AWAKE AND THIS RN CHECKED HER ATTENDS. SHE HAS VOIDED A MODERATE AMOUNT AND HAD A SMALL SOFT BM. PATIENT CLEANSED AND NEW ATTENDS APPLIED. PATIENT PLACED TOWARD HER RIGHT SIDE. WARM BLANKETS APPLIED. PATIENT DENIES PAIN OR NAUSEA AT THIS TIME, DENIES OTHER NEEDS.
--- NOTE | 2021-02-18 06:29 | NUR ---
IN ROOM TO CHECK ON PATIENT AND GIVE MORNING MED, SEE EMAR. PATIENT HAS HAD A LARGE VOID. CHANGED HER ATTENDS AND WHITE ANALY. PATIENT DID NOT HAVE A BM. PATIENT REQUESTING TO SIT UP AT THIS TIME. SHE IS UPRIGHT IN BED AND WOULD LIKE BREAKFAST. CALL LIGHT IN REACH.
--- NOTE | 2021-02-18 06:40 | NUR ---
PATIENT HAS BEEN REPOSITIONED EVERY 2 TO 2.5 HOURS DURING THE NIGHT. CURRENTLY SHE IS SITTING UPRIGHT IN BED. PATIENT HAS HAD A BM AND HAS VOIDED IN HER ATTENDS DURING THE NIGHT.
--- NOTE | 2021-02-18 07:27 | NUR ---
Patient resting in bed, eyes closed, respirations even and non labored. Patient has no notable distress. Personal supplies and call light within reach.
--- NOTE | 2021-02-18 09:30 | NUR ---
Patient assisted to chair. Warm wash cloth provided. Patient's vital signs stable, afebrile. Patient sat up with breakfast in front of her. Fresh water provided. Call light within reach of patient. Patient reports she will call staff if she has needs.
--- NOTE | 2021-02-18 09:45 | NUR ---
CALLED NATALIE [facility], LEFT VOICEMAIL FOR CALLBACK.
--- NOTE | 2021-02-18 11:00 | NUR ---
PATIENT REMAINS ON A PUREED DIET WITH MODERATELY THICK LIQUIDS. SHE IS ABLE TO FEED HERSELF. SHE IS CONSUMING APPROXIMATELY 50% OF HER MEALS. NURSING IS PROVIDING ENSURE I SEE TWO BOTTLES ON HER BEDSIDE TABLE. CONTINUE TO PROVIDE ENSURE IF 50% OR LESS OF MEAL IN CONSUMED. WILL CONTINUE TO MONITOR.
--- NOTE | 2021-02-18 11:20 | NUR ---
SPOKE WITH SERA FROM [facility] BY TEXT. THEY ARE FINE FOR PATIENT TO RETURN TO FACILITY TOMORROW IF DISCHARGED. NO REQUESTS AT THIS TIME.
--- NOTE | 2021-02-18 13:36 | NUR ---
Patient resting in chair, respirations even and non labored. Patient has no distress. Personal supplies and call light within reach.
--- NOTE | 2021-02-18 14:23 | NUR ---
PATIENT IN CHAIR AT THIS TIME. PATIENT HAD INCONT. JERMAINE CARE DONE AND NEW ATTENDS IN PLACE. CREAM PUT ON BOTTUM. PATIENT REPOSITIONED WITH PILLOW UNDER RIGHT HIP. CALL LIGHT IN REACH. NO FURTHER NEEDS AT THIS TIME.
--- NOTE | 2021-02-18 16:28 | NUR ---
Patient was assisted with a shower and back to her chair with some warm blankets.She is currently resting. Nella care took place and she had a BM. Call light is in reach and there is no further requests from her at this time.
--- NOTE | 2021-02-18 16:30 | NUR ---
PATIENT REPOSITIONED WHEN BACK TO CHAIR WITH PILLOW PLACED UNDER LEFT HIP. WARM BLANKETS GIVEN. CALL LIGHT IN REACH. NO FURTHER NEEDS AT THIS TIME.
--- NOTE | 2021-02-18 18:52 | NUR ---
Patient sittin up in chair awake. Patient has no distress. Water within reach. No current needs.
--- NOTE | 2021-02-18 18:57 | NUR ---
PATIENT IN CHAIR. PATIENT REPISITIONED WITH PILLOW UNDER RIGHT HIP. VITALS AND I&O'S CHARTED. CALL LIGHT IN REACH. NO FURTHER NEEDS AT THIS TIME.
--- NOTE | 2021-02-18 19:00 | NUR ---
BEDSIDE REPORT RECEIVED FROM OFFGOING RNWALLY. PT RESTING IN RECLINER. DENIES NEEDS AT THIS TIME. CALL LIGHT IN REACH.
--- NOTE | 2021-02-18 22:19 | NUR ---
CHANGED INCONTINENT URINE. APPLIED BARRIER CREAM. POWDER APPLIED BY PRIMARY RN WIL. PATIENT REPOSITIONED LAYING ON HER RIGHT SIDE.
--- NOTE | 2021-02-18 22:23 | NUR ---
PT ASSESSMENT COMPLETE. CHIEF ENGINEERING DIVISION AT BEDSIDE CHANING PT'S ATTENDS WHEN ELEVATOR ATTENDANT ENTERS THE ROOM. PT DENIES PAIN, NAUSEA, OR SOB. PT ORIENTED TO SELF. OTHERWISE PLEASANTLY CONFUSED. PT TAKES HER SCHEDULED MEDICATIONS CRUSHED WITH PUDDING, TOLERATED WELL. BARRIER CREAM AND DESENEX APPLIED TO REDENNED JERMAINE AREAS. ATTENDS PLACED FOR INCONTINENCE. PT PLAED ON HER R SIDE AND PROPPED WITH PILLOWS. IV FLUSHED, WNL. PATENT. PT DENIES FURTHER NEEDS AT THIS TIME. CALL LIGHT INR EACH. ROOM IN VIEW OF RNS TATION WITH CURTAIN OPEN.
--- NOTE | 2021-02-19 00:44 | NUR ---
PT RESTING IN BED WITH EYES CLOSED. RESPIRATIONS EVEN AND UNLABORED. PT APPEARS TO BE SLEEPING. CALL LIGHT IN REACH. ROOM IN VIEW OF RN STATION WITH CURTAIN OPEN.
--- NOTE | 2021-02-19 02:45 | NUR ---
PT ASSESSMENT COMPLETE. PT RESTING IN BED AWAKE. DENIES PAIN. ORIENTED TO SELF ONLY. INCONTINENCE PAD CHANGED AT THIS TIME. ATTENDS IN PLACE. PT REPOSITIONED AND PROPPED WITH PILLOWS. DENIES FURTHER NEEDS AT THIS TIME. CALL LIGHT IN REACH. ROOM IN VIEW OF RN STATION WITH CURTAIN OPEN.
--- NOTE | 2021-02-19 05:38 | NUR ---
PT SEEN FROM RN STATION WAVING HER HAND, WRTIER TO ROOM. PT STATES "BRING ME FOOD". CHOCOLATE PUDDING AND THICKENED CHOCOLATE ENSURE PROVIDED. PT STILL HUNGRY, THICKENED BROTHER PROVIDED. PT REPOSITIONED IN BED ONTO HER BACK. VS OBTAINED. PT DENIES FURTHER NEEDS AT THIS TIME. CALL LIGHT IN REACH. ROOM IN VIEW OF RN STATION.
--- NOTE | 2021-02-19 07:52 | NUR ---
Patient in bed in bed resting, eyes closed, respirations even and non labored. Patient has no distress. Personal supplies and call [facility] within reach.
--- NOTE | 2021-02-19 08:10 | NUR ---
PATIENT TO CHAIR FOR BREAKFAST, 2PA PIVOT. TWO PILLOWS PLACED UNDER EACH SIDE OF PATIENT IN CHAIR. WARM BLANKETS GIVEN. RN IN ROOM AT THIS TIME. CALL LIGHT IN REACH. NO FURTHER NEEDS AT THIS TIME.
[2021-02-19] MEDS ORDERED: XARELTO10 MG PO (09:05)
[2021-02-19] MEDS ORDERED: DILTIAZEM ER300 MG PO (09:06)
[2021-02-19] MEDS ORDERED: METOPROLOL SUCC50 MG PO (09:06)
--- NOTE | 2021-02-19 09:09 | NUR ---
PATIENT BACK TO BED FROM CHAIR, 2PA PIVOT. WARM BALNKETS GIVEN. PATIENT REPOSITIONED ONTO LEFT SIDE WITH PILLOW UNDER RIGHT SIDE. CALL LIGHT IN REACH. NO FURTHER NEEDS AT THIS TIME.
--- NOTE | 2021-02-19 09:15 | NUR ---
Per discussion with Dr. Harrell, pt will dc today. Texted Summer at [facility] and they would like pt to return prior to 12. Spoke with Rn and she will have pt ready. She states pt is a 2 person assist so will need a wc van. Called transport and they can tranport at 1 pm. Updated [facility] and Rn. Wc van will seed cone picker pts wc at [facility] prior to transport.
--- NOTE | 2021-02-19 10:41 | NUR ---
PATIENT CALLED TO BE REPOSITIONED. PATIENT PULLED UP IN BED AND PILLOWS PLACED UNDER BOTH HIPS. CALL LIGHT IN REACH. NO FURTHER NEEDS AT THIS TIME.
--- NOTE | 2021-02-19 11:00 | NUR ---
Spoke with Thais. Updated she will return to [facility] today. 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 Discussed she will return to [facility] at 1 pm per sravanthi. She states, very good.
--- NOTE | 2021-02-19 12:13 | NUR ---
PATIENT HAD INC BM AND VOID, JERMAINE CARE DONE, CREAM PLACED ON BOTTUM, NEW ATTENDS IN PLACE. PATIENT REPOSITIONED IN BED AND SAT UP FOR LUNCH. IV TAKEN OUT UPON RN REQUEST. CATH INTACT AND LOOKED GOOD, RN NOTIFIED. CALL LIGHT IN REACH. NO FURTHER NEEDS AT THIS TIME.
--- NOTE | 2021-02-19 12:39 | NUR ---
Patient sitting up in bed at this time, eyes closed, respirations even and non labored. Patient has no distress. Personal supplies and call light within reach.
--- NOTE | 2021-02-19 13:04 | NUR ---
Called and updated son, Neil as requested, pt is returning to [facility] now.
== END 2021-02-19 13:00 | disposition home or self-care (01) | DRG 871 ==
LOC: ED 11:53 → CCU 14:51 → MS 02-01 18:43 → CCU 02-04 06:45 → MS 02-06 11:52
PROVIDERS: ADMIT Student in an Organized Health Care Education/Training Program; ATTEND Student in an Organized Health Care Education/Training Program
PROC: 5A09357 Assistance with Respiratory Ventilation, Less than 24 Consecutive Hours, Continuous Positive Airway Pressure (ICD-10-PCS; principal; 2021-01-29)
PROC: 8E0ZXY6 Isolation (ICD-10-PCS; 2021-01-29)
PROC: 3E0333Z Introduction of Anti-inflammatory into Peripheral Vein, Percutaneous Approach (ICD-10-PCS; 2021-01-29)
DX: A41.89 Other specified sepsis (principal); U07.1 COVID-19; J96.01 Acute respiratory failure with hypoxia; R65.21 Severe sepsis with septic shock; J69.0 Pneumonitis due to inhalation of food and vomit; I50.23 Acute on chronic systolic (congestive) heart failure; J15.9 Unspecified bacterial pneumonia; Z66 Do not resuscitate; J12.82 Pneumonia due to coronavirus disease 2019; I11.0 Hypertensive heart disease with heart failure; I48.0 Paroxysmal atrial fibrillation; R13.12 Dysphagia, oropharyngeal phase; F39 Unspecified mood [affective] disorder; F03.90 Unspecified dementia, unspecified severity, without behavioral disturbance, psychotic disturbance, mood disturbance, and anxiety; E03.9 Hypothyroidism, unspecified; L89.151 Pressure ulcer of sacral region, stage 1; I25.10 Atherosclerotic heart disease of native coronary artery without angina pectoris; Z95.1 Presence of aortocoronary bypass graft; Z98.890 Other specified postprocedural states; Z92.21 Personal history of antineoplastic chemotherapy; Z92.3 Personal history of irradiation; Z85.21 Personal history of malignant neoplasm of larynx; Z87.891 Personal history of nicotine dependence; Z90.49 Acquired absence of other specified parts of digestive tract; Z79.899 Other long term (current) drug therapy; Z79.01 Long term (current) use of anticoagulants
CPT/HCPCS: 36600; 51702; 71045; 80048; 80053; 80202; 80500; 81001; 82803; 83605; 83735; 84295; 84300; 84484; 85007; 85025; 85651; 87040; 92526; 92610; 93005; 93010; 93308; 94660; 94668; 94760; 97110; 97162; 97167; 97530; 97535; 99285-25; C9803; J0456; J0692; J0696; J1100; J1650; J1940; J1956; J2185; J2405; J3370; J3475; J3480; J7030; J7040; J7050; J7060; J7121; J7131; J8540; U0003

== ENCOUNTER 2023-03-06 05:27 | Emergency (ER) | payer MEDICARE, OTHER ==
[~2023-03-06] VITALS: Ht 147.3 cm; Wt 46.0 kg
[~2023-03-06 05:27] MED LIST changes: +BACTRIM DS TAB1 EACH PO; +BISACODYL10 MG PR; +DILTIAZEM ER300 MG PO; +IMODIUM A-D2 M2 PO; +LEVOTHYROXINE112 MCG PO; +METOPROLOL SUCC50 MG PO; +MILK OF MA400 MG/5 M PO; +TYLENOL EXTRA500 MG PO; +XARELTO10 MG PO; +[UNRECOGNIZED DRUG - OTHER] PO
[2023-03-06 05:43] LABS: HEMATOCRIT 38.4 % (35.0-50.0); HEMOGLOBIN 12.7 g/dL (12.0-18.0); MCHC 33.2 g/dl (30-36); MCV 81.4 fl (81-99); PLATELET COUNT 290 K/uL (140-440); RBC 4.72 M/ul (4.3-5.7); RDW 15.6 (10.5-15.0)
[2023-03-06 05:55] LABS: BANDS, MANUAL DIFF 4; EOSINOPHILS, MANUAL DIFF 1; LYMPHOCYTES, MANUAL DIFF 26; MONOCYTES, MANUAL DIFF 5; NEUTROPHILS, MANUAL DIFF 64
[2023-03-06 06:09] LABS: ALBUMIN 3.1 g/dL (3.4-5.0); ALBUMIN/GLOBULIN RATIO 0.76 (1.1-2.4); ALCOHOL, MEDICAL <3 ng/dL (<3); ALKALINE PHOSPHATASE 77 U/L (46-116); ALT (SGPT) 15 U/L (14-59); ANION GAP 14.8 (7-21); AST (SGOT) 18 U/L (15-37); BILIRUBIN, TOTAL 0.4 ng/dL (0.2-1.0); BUN/CREATININE RATIO 32.43 (6.0-28.6); CALCIUM 10.1 mg/dL (8.5-10.1); CARBON DIOXIDE 25 mmol/L (21-32); CHLORIDE 99 mmol/L (98-107); CREATININE, SERUM 1.11 mg/dL (0.55-1.02); GLOMERULAR FILTRATION RATE,EST 49 mL/min (>60); POTASSIUM 4.8 mmol/L (3.5-5.1); PROTEIN, TOTAL 7.2 g/dL (6.4-8.2); UREA NITROGEN 36 mg/dL (7-18)
[2023-03-06 06:11] LABS: CREATINE KINASE 19 U/L (26-192)
[2023-03-06 06:22] LABS: BILIRUBIN, URINE NEGATIVE (negative); BLOOD/HGB, URINE NEGATIVE (Negative); KETONE, URINE NEGATIVE (Negative); LEUK ESTERASE, URINE SMALL (negative); NITRITE, URINE NEGATIVE (negative)
[2023-03-06 06:23] LABS: AMPHETAMINES, UR NEGATIVE (NEGATIVE); BARBITURATES, UR NEGATIVE (NEGATIVE); BENZODIAZEPINES, UR NEGATIVE (NEGATIVE); BUPRENORPHINE,UR NEGATIVE (NEGATIVE); COCAINE, UR NEGATIVE (NEGATIVE); MARIJUANA (THC), UR NEGATIVE (NEGATIVE); MDMA, UR NEGATIVE (NEGATIVE); METHADONE, UR POSITIVE (NEGATIVE); METHAMPHETAMINE, UR NEGATIVE (NEGATIVE); OPIATES, UR NEGATIVE (NEGATIVE); OXYCODONE, UR NEGATIVE (NEGATIVE); PHENCYCLIDINE, UR NEGATIVE (NEGATIVE); TRICYCLIC ANTIDEPRESSANT, UR NEGATIVE (NEGATIVE)
[2023-03-06 06:31] LABS: BACTERIA, URINE 3+ /hpf (negative); CASTS, URINE NONE SEEN \\lpf; COLLECTION TYPE, URINE CLEAN CATCH; CRYSTALS, URINE NONE SEEN (0-1+); EPITHELIAL CELLS, URINE 0 /lpf (0-1+); RED BLOOD CELLS, URINE 0-1 /hpf (0-5)
[2023-03-06 06:32] LABS: REFLEX CULTURE, URINE Yes (No)
[2023-03-06 06:48] LABS: ABO O; ANTIBODY SCREEN NEGATIVE; RH POSITIVE
[2023-03-06 07:10] VITALS: BP 171/91
--- NOTE | 2023-03-06 20:21 | EKG ---
[facility] [address] [place] [address] Signed Atrial flutter with variable AV block with premature ventricular or aberrantly conducted complexes Left ventricular hypertrophy with repolarization abnormality ( Epifanio product ) Abnormal ECG When compared with ECG of 29-JAN-2021 12:06, Atrial flutter has replaced Atrial fibrillation Vent. rate has decreased BY 67 BPM Non-specific change in ST segment in Anterior leads T wave inversion now evident in Lateral leads Confirmed by Shazia Handy MD () on 03/06/2023 8:21:08 PM Electronically Signed By: SHAZIA HANDY MD 03/06/232020 PATIENT NAME: JOSE CARLOS ABREU Electrocardiogram DATE OF : 40 PHYSICIAN: SHAZIA HANDY MD REPORT #: [id number] REPORT IS CONFIDENTIAL AND NOT TO BE RELEASED WITHOUT AUTHORIZATION
== END 2023-03-06 07:53 | disposition home or self-care (01) ==
LOC: ED 05:27
PROVIDERS: Internal Medicine
DX: S00.83XA Contusion of other part of head, initial encounter (principal); F03.90 Unspecified dementia, unspecified severity, without behavioral disturbance, psychotic disturbance, mood disturbance, and anxiety; I10 Essential (primary) hypertension; I48.91 Unspecified atrial fibrillation; Z95.1 Presence of aortocoronary bypass graft; Z79.890 Hormone replacement therapy; Z79.01 Long term (current) use of anticoagulants; Z79.899 Other long term (current) drug therapy; Z87.891 Personal history of nicotine dependence; W18.30XA Fall on same level, unspecified, initial encounter
CPT/HCPCS: 36415; 70450; 70486; 71045; 72125; 72170; 80053; 81001; 82553; 85025; 86850; 86900; 86901; 87088; 93005; 93010; 99284-25; G0480

== ENCOUNTER 2024-04-14 09:59 | Inpatient (IN) | payer MEDICARE, OTHER ==
[~2024-04-14] VITALS: Ht 147.3 cm; Wt 34.3 kg
[2024-04-14] VITALS (20 sets, daily range): BP systolic 74–113; BP diastolic 46–86
[~2024-04-14 09:59] MED LIST changes: +DICYCLOMINE HCL20 MG PO; -FLUOXETINE HCL20 MG PO
[2024-04-14] MEDS ORDERED: SODIUM CHLORIDE 0.9% 1,000 ML IV ONE (10:15)
[2024-04-14] MEDS ORDERED: METOPROLOL TARTRATE 5 MG/5 ML VIAL IV SCH (10:15)
[2024-04-14 10:31] LABS: HEMOGLOBIN 12.9 g/dL (12.0-18.0); MCH 25.2 (27-36); MCHC 32.3 g/dl (30-36); PLATELET COUNT 522 K/uL (140-440); RBC 5.13 M/ul (4.3-5.7); RDW 17.8 (10.5-15.0)
[2024-04-14] MEDS ORDERED: METOPROLOL SUCCINATE 50 MG TABCR PO ONE (10:45)
[2024-04-14 10:48] LABS: ALBUMIN 2.3 g/dL (3.4-5.0); ALBUMIN/GLOBULIN RATIO 0.43 (1.1-2.4); ANION GAP 17.7 (7-21); BANDS, MANUAL DIFF 5; BILIRUBIN, TOTAL 0.6 ng/dL (0.2-1.0); BUN/CREATININE RATIO 33.44 (6.0-28.6); CALCIUM 10.3 mg/dL (8.5-10.1); CREATININE, SERUM 2.9 mg/dL (0.55-1.02); LYMPHOCYTES, MANUAL DIFF 17; MAGNESIUM 3.7 mg/dL (1.8-2.4); MONOCYTES, MANUAL DIFF 9; NEUTROPHILS, MANUAL DIFF 69; POTASSIUM 3.7 mmol/L (3.5-5.1); PROTEIN, TOTAL 7.7 g/dL (6.4-8.2)
[2024-04-14 10:51] LABS: LACTIC ACID, BLOOD 3.5 mmol/L (0.4-2.0)
[2024-04-14] MEDS ORDERED: dilTIAZem HCL 25 MG/5 ML VIAL IV ONE ×2 (11:00→11:30)
[2024-04-14] MEDS ORDERED: CEFTRIAXONE/SODIUM CHLORIDE 1 GM/100 ML PIGGYBACK IV ONE (11:00)
[2024-04-14] MEDS ORDERED: DILTIAZEM HCl/D5W 125 ML IV SCH (11:30)
[2024-04-14] MEDS ORDERED: ondansetron HCL 4 MG/2 ML VIAL IV PRN (16:45)
[2024-04-14] MEDS ORDERED: SODIUM CHLORIDE 0.9% 1,000 ML IV SCH ×2 (16:45→18:00)
[2024-04-14] MEDS ORDERED: ACETAMINOPHEN 325 MG TAB PO PRN (16:45)
[2024-04-14] MEDS ORDERED: HEPARIN SOD,PORK IN 0.45% NACL 500 ML IV SCH ×2 (20:00→21:15)
[2024-04-14 20:10] LABS: HEMATOCRIT 34.7 % (35.0-50.0); HEMOGLOBIN 10.9 g/dL (12.0-18.0); MCH 24.7 (27-36); MCHC 31.5 g/dl (30-36); MCV 78.6 fl (81-99); PLATELET COUNT 382 K/uL (140-440); RBC 4.42 M/ul (4.3-5.7); RDW 18.3 (10.5-15.0)
[2024-04-14 20:24] LABS: LYMPHOCYTES, MANUAL DIFF 10; MONOCYTES, MANUAL DIFF 9; NEUTROPHILS, MANUAL DIFF 81
[2024-04-14 20:28] LABS: INR 1.28 (0.80-1.30); PARTIAL THROMBOPLASTIN TIME 29.9 Sec (22.9-41.3); PROTIME 15.2 Sec (11.2-14.2)
[2024-04-14 20:54] LABS: ANION GAP 14.3 (7-21); BUN/CREATININE RATIO 40.85 (6.0-28.6); CALCIUM 8.5 mg/dL (8.5-10.1); CREATININE, SERUM 2.35 mg/dL (0.55-1.02); POTASSIUM 3.3 mmol/L (3.5-5.1)
[2024-04-14] MEDS ORDERED: NOREPINEPHRINE BITARTRATE 250 ML IV SCH (21:45)
[2024-04-14] MEDS ORDERED: DEXTROSE 5% 1,000 ML IV SCH (21:45)
[2024-04-14] MEDS ORDERED: PIPERACILLIN/TAZOBACTAM 3.375 GM in DEXTROSE 5% 100 ML IV SCH (22:00)
[2024-04-14 22:10] LABS: BILIRUBIN, URINE NEGATIVE (negative); BLOOD/HGB, URINE MODERATE (Negative); KETONE, URINE TRACE (Negative); LEUK ESTERASE, URINE TRACE (negative); NITRITE, URINE NEGATIVE (negative); PH, URINE 5.5 (5-7)
[2024-04-14] MEDS ORDERED: PIPERACILLIN/TAZOBACTAM 3.375 GM VIAL ONE (22:12)
[2024-04-14 22:14] LABS: EPITHELIAL CELLS, URINE SQUAMOUS 1+ /lpf (0-1+)
[2024-04-14 22:15] LABS: BACTERIA, URINE 3+ /hpf (negative); CASTS, URINE NONE SEEN \\lpf; COLLECTION TYPE, URINE CATH; CRYSTALS, URINE NONE SEEN (0-1+); REFLEX CULTURE, URINE Yes (No); WHITE BLOOD CELLS, URINE >50 /HPF (0-5)
[2024-04-14] MEDS ORDERED: POTASSIUM CHLORIDE 10 MEQ/100 ML BAG IV SCH (22:30)
[2024-04-14] MEDS ORDERED: LIDOCAINE 2% VISCOUS 6 ML SYR TOP ONE (22:45)
--- NOTE | 2024-04-14 23:13 | EKG ---
[facility] [address] [facility] [place] [address] Signed Atrial fibrillation with rapid ventricular response Moderate voltage criteria for LVH, may be normal variant ( Sokolow-Bush , Epifanio product ) Marked ST abnormality, possible inferior subendocardial injury Abnormal ECG When compared with ECG of 06-MAR-2023 05:49, Atrial fibrillation has replaced Atrial flutter Vent. rate has increased BY [address] now depressed in Inferior leads T wave inversion now evident in Inferior leads Confirmed by Shazia Handy MD () on 04/14/2024 11:13:28 PM Electronically Signed By: SHAZIA HANDY MD 04/14/24 2313 PATIENT NAME: JOSE CARLOS ABREU Electrocardiogram DATE OF : 40 PHYSICIAN: SHAZIA HANDY MD REPORT #: [id number] REPORT IS CONFIDENTIAL AND NOT TO BE RELEASED WITHOUT AUTHORIZATION
[2024-04-15] VITALS (24 sets, daily range): BP systolic 81–119; BP diastolic 55–101
[2024-04-15] MEDS ORDERED: HEPARIN IV ONE (04:30)
[2024-04-15] MEDS ORDERED: HEParin SOD (PORCINE) 5,000 UNIT/ML SYR IV ONE (05:00)
[2024-04-15 05:43] LABS: HEMATOCRIT 34.1 % (35.0-50.0); MCH 25.2 (27-36); MCHC 32.4 g/dl (30-36); MCV 77.9 fl (81-99); PLATELET COUNT 465 K/uL (140-440); RBC 4.37 M/ul (4.3-5.7); RDW 17.9 (10.5-15.0)
[2024-04-15 06:05] LABS: ALBUMIN 1.8 g/dL (3.4-5.0); ALBUMIN/GLOBULIN RATIO 0.41 (1.1-2.4); ANION GAP 14.3 (7-21); BANDS, MANUAL DIFF 1; BILIRUBIN, TOTAL 0.4 ng/dL (0.2-1.0); BUN/CREATININE RATIO 37.71 (6.0-28.6); CREATININE, SERUM 2.28 mg/dL (0.55-1.02); LYMPHOCYTES, MANUAL DIFF 10; MAGNESIUM 2.9 mg/dL (1.8-2.4); MONOCYTES, MANUAL DIFF 7; NEUTROPHILS, MANUAL DIFF 82; POTASSIUM 3.3 mmol/L (3.5-5.1); PROTEIN, TOTAL 6.2 g/dL (6.4-8.2)
[2024-04-15] MEDS ORDERED: POTASSIUM CHLORIDE 40 MEQ,LIDOCAINE HCL 1% 40 MG in DEXTROSE 5% 250 ML IV ONE (08:00)
[2024-04-15] MEDS ORDERED: CEFTRIAXONE/SODIUM CHLORIDE 1 GM/100 ML PIGGYBACK IV SCH (09:00)
[2024-04-15] MEDS ORDERED: LACTATED RINGER'S 1,000 ML IV SCH (09:45)
[2024-04-15] MEDS ORDERED: HEParin SOD (PORCINE) 5,000 UNIT/ML SYR IV PRN ×3 (12:00)
[2024-04-15] MEDS ORDERED: PHARMACY RENAL DOSE ADJUSTMENT 1 DOSE MISC PO SCH (12:00)
[2024-04-15] MEDS ORDERED: VITAMIN D325 MCG PO (12:44)
[2024-04-15] MEDS ORDERED: [UNRECOGNIZED DRUG - OTHER] PO (12:44)
[2024-04-15] MEDS ORDERED: MILK OF MA400 MG/5 M PO (12:45)
[2024-04-15] MEDS ORDERED: TYLENOL EXTRA500 MG PO (12:50)
[2024-04-15] MEDS ORDERED: PREPARATION H26 GM TOP (12:52)
[2024-04-15] MEDS ORDERED: MOISTURE BARRI113 GM TOP (12:53)
[2024-04-15] MEDS ORDERED: FUROSEMIDE 20 MG/2 ML VIAL IV ONE (14:30)
[2024-04-15] MEDS ORDERED: MORPHINE SULFATE 4 MG/ML VIAL IV PRN (15:30)
[2024-04-15] MEDS ORDERED: LORazepam 2 MG/ML VIAL IV PRN ×2 (15:30)
[2024-04-15] MEDS ORDERED: ATROPINE SULFATE 1% OPTH DROPS SL PRN (15:30)
[2024-04-15] MEDS ORDERED: fentaNYL citrate 100 MCG/2 ML VIAL IV PRN (15:30)
[2024-04-15] MEDS ORDERED: ARTIFICIAL TEARS 15 ML BTL OU PRN (15:30)
[2024-04-15] MEDS ORDERED: SCOPOLAMINE 1 MG/3 DAYS PATCH 1 EACH TDSY TD SCH (16:00)
[2024-04-16 10:40] VITALS: BP 96/65
[2024-04-16 22:20] VITALS: BP 152/77
[2024-04-17] MEDS ORDERED: FENTANYL 12 MCG/HR 1 EA TDSY TD PRN (09:30)
[2024-04-17 22:45] VITALS: BP 137/72
[2024-04-18] MEDS ORDERED: ACETAMINOPHEN 650 MG SUPP PR PRN (15:30)
[2024-04-20] MEDS ORDERED: fentaNYL 1 EACH TDSY TD SCH (09:00)
== END 2024-04-19 10:51 | disposition hospice, home (50) | DRG 871 ==
LOC: ED 09:59 → CCU 16:48 → MS 16:48
PROVIDERS: Emergency Medicine; ADMIT Family Medicine; ATTEND Student in an Organized Health Care Education/Training Program
PROC: 3E03329 Introduction of Other Anti-infective into Peripheral Vein, Percutaneous Approach (ICD-10-PCS; principal; 2024-04-14)
PROC: 3E033XZ Introduction of Vasopressor into Peripheral Vein, Percutaneous Approach (ICD-10-PCS; 2024-04-14)
DX: A41.9 Sepsis, unspecified organism (principal); I21.A1 Myocardial infarction type 2; J18.9 Pneumonia, unspecified organism; E87.0 Hyperosmolality and hypernatremia; N17.9 Acute kidney failure, unspecified; N39.0 Urinary tract infection, site not specified; I48.91 Unspecified atrial fibrillation; I95.9 Hypotension, unspecified; Z66 Do not resuscitate; Z51.5 Encounter for palliative care; E87.6 Hypokalemia; I10 Essential (primary) hypertension; F03.90 Unspecified dementia, unspecified severity, without behavioral disturbance, psychotic disturbance, mood disturbance, and anxiety; R09.02 Hypoxemia; Z92.21 Personal history of antineoplastic chemotherapy; Z92.3 Personal history of irradiation; Z95.1 Presence of aortocoronary bypass graft; Z87.891 Personal history of nicotine dependence; Z85.21 Personal history of malignant neoplasm of larynx; Z90.49 Acquired absence of other specified parts of digestive tract; Z79.01 Long term (current) use of anticoagulants; Z79.890 Hormone replacement therapy; I25.2 Old myocardial infarction
CPT/HCPCS: 36415; 51702; 71045; 74176; 80048; 80053; 81001; 83605; 83735; 84100; 84484; 85025; 85610; 85730; 87040; 87088; 93005; 93010; 99285-25; A9270; J0696; J1644; J1940; J2060; J2270; J2405; J2543; J3480; J3490; J7030; J7060; J7070; J7121